=== PATIENT | male | born 1960 | race Caucasian/White ===

== ENCOUNTER → 2018-01-09 09:24 | Outpatient (REF) | payer MEDICARE, SELFPAY ==
[2018-01-09 09:28] LABS: Adenovirus F 40/41, stool Not Detected (NotDetected); Astrovirus Not Detected (NotDetected); Campylobacter Not Detected (NotDetected); Clostridium Difficile A/B, PCR Not Detected (NotDetected); Cryptosporidium Not Detected (NotDetected); Cyclospora Cayetanesis Not Detected (NotDetected); Entamoeba histolytica Not Detected (NotDetected); Enteroaggregative E coli Not Detected (NotDetected); Enteropathogenic E coli Not Detected (NotDetected); Enterotoxigenic E coli Not Detected (NotDetected); Giardia lamblia Not Detected (NotDetected); Norovirus Not Detected (NotDetected); Plesimonas Shigalloides, PCR Not Detected (NotDetected); Rotavirus A Not Detected (NotDetected); Salmonella, PCR Not Detected (NotDetected); Sapovirus Not Detected (NotDetected); Shiga-like toxin E coli Not Detected (NotDetected); Shigella Enterovasive E coli Not Detected (NotDetected); Vibrio Cholerae Not Detected (NotDetected); Vibrio, PCR Not Detected (NotDetected); Yersinia Entercolitica, PCR Not Detected (NotDetected)
== END ==
LOC: LAB 09:24
PROVIDERS: Visit Provider Surgery
DX: R19.7 Diarrhea, unspecified (principal)
CPT/HCPCS: 87507

== ENCOUNTER → 2018-09-04 12:33 | Outpatient (CLI) | payer MEDICARE, SELFPAY ==
--- NOTE | 2018-09-04 12:38 | CT_ITS ---
CT lung screening EXAM: CT LUNG LOW DOSE WO CONTRAST HISTORY: 44 pack-year smoking history asymptomatic for lung cancer ITS.REASON: NICOTINE DEPENDENCE ORDERING PHYSICIAN: ROBINSON Garcia PATIENT AGE: 58 years COMPARISON: 03/06/2017 TECHNIQUE: The exam was performed on a GE Light Speed [address] scanner using 2.90 mGy CTDI. A low dose helical CT CHEST was performed on a multi-detector scanner. All CT scans at the facility use one or more dose reduction, viz: automated exposure control, ma/kV adjustment per patient size (including targeted exams where dose is matched to indication, i.e. head), or iterative reconstruction technique. The LDCT was performed in a facility that meets the criteria for the screening program. Data regarding this exam was submitted to ACR which is an approved registry. The order for this exam indicates that it came as a result of a lung cancer screening counseling shard decision-making visit that included all the elements required of such a visit including smoking cessation. The radiologist interpreting this exam meets the CMS criteria for the LDCT lung cancer screening program. The exam is reported using the Lung-RADS classification scale and reported to the ACR registry. NOTE: This study was performed for the specific purposes of lung cancer screening and is not an alternative to diagnostic chest CT. RADIATION DOSE: CTDI vol(CT dose Index-volume) = 2.90mG DLP (Dose Length Product) = 120.63 mGcm FINDINGS: Paraseptal emphysema with COPD. Stable subpleural nodular density right upper lobe anteriorly at 7 mm. 4 mm noncalcified nodule right lower lobe laterally image #61 series 3 7 mm noncalcified nodule right lower lobe posteriorly image #69 series 3. These areas were somewhat obscured on the previous study due to underlying airspace disease. Calcified granuloma right lower lobe. 5 mm noncalcified nodule right lower lobe posteriorly image #44 series 3. 6 mm nodule left lower lobe image 59 series 3 unchanged. Scattered small mediastinal lymph nodes Coronary artery calcifications IMPRESSION: 1. Lung RADS Category: 3, probably benign. 7 mm noncalcified nodule right lower lobe. It is uncertain whether this nodule was present on the most recent comparison study due to that area being obscured by airspace disease. This was not readily apparent on 01/21/2017 exam. 2. Other findings: Paraseptal emphysema with COPD Coronary artery calcification RECOMMENDATIONS: [address] chest without and with contrast
== END ==
PROVIDERS: PCP Physician Assistant; Visit Provider Physician Assistant
DX: Z12.2 Encounter for screening for malignant neoplasm of respiratory organs (principal); Z87.891 Personal history of nicotine dependence

== ENCOUNTER → 2018-09-23 07:42 | Outpatient (CLI) | payer MEDICARE, SELFPAY ==
--- NOTE | 2018-09-23 07:58 | NM_ITS ---
CARDIOLITE SPECT MYOCARDIAL PERFUSION LEXISCAN, REST AND STRESS: [facility] REVIEW QGS EF AND WALL MOTION EVALUATION: QPS - PERFUSION EVALUATION HISTORY: HTN, SMOKER DOSE: 10.74 mCi technetium 99m mibi intravenously at rest followed by 31.7 mCi technetium 99m mibi following the intravenous ministration of 0.4 mg of Lexiscan. Resting blood pressure is 154/91. Stress blood pressure 147/83. FINDINGS: Ejection fraction is calculated to be 60% Stress images reveal uniform myocardial activity while rest images reveal decreased activity in the inferior septal and apical sharp. Gated images calculated ejection fraction of 60% with normal wall motion. IMPRESSION: Stress images are normal however the abnormal resting images suggest reverse redistribution although my suspicion for this is uncertain and clinical correlation is advised. Normal ejection fraction normal wall motion
--- NOTE | 2018-09-23 09:40 | HMH.ITSHM ---
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 []VENAFAXINE TERAZOSIN METOPROLOL LURASIDONE DIAZEPAM BUPROPION BENZTROPINE ASPIRIN TRIAMTERENE HCTZ GLIMEPIRIDA
== END ==
PROVIDERS: PCP Family Medicine; Visit Provider Physician Assistant
DX: I25.10 Atherosclerotic heart disease of native coronary artery without angina pectoris (principal)
CPT/HCPCS: 78452; 93017; A9502; J2785

== ENCOUNTER 2018-10-06 07:44 | Day surgery (SDC) | payer MEDICARE, SELFPAY ==
[2018-10-06] VITALS (13 sets, daily range): BP systolic 90–145; BP diastolic 58–90; PULSE 60–67; RESP 16–20; TEMP 36.6–37.1; O2SAT 94–96; BMI 32.5
--- NOTE | 2018-10-06 07:30 | IR_ITS ---
CARDIAC CATHETERIZATION DATE OF CATHETERIZATION:10/06/2018 9:56 AM PROCEDURES: 1. Left heart catheterization 2. Left ventriculogram 3. Selective coronary angiogram 4. FFR to the LAD 5. Drug-eluting stent deployment to the proximal LAD INDICATION FOR TEST: 1. Coronary artery disease 2. Ischemic response to adenosine FFR 0.78 in the LAD 3. Abnormal Myoview apical septal ischemia 4. Typical angina pectoris Informed consent was obtained prior to the procedure. COMPLICATIONS: None ESTIMATED BLOOD LOSS: Less than 10 ml. TECHNIQUE: One percent lidocaine used to anesthetize the right anterior aspect of the wrist. The right radial artery was accessed via the Seldinger technique. A 6 Nigerian sheath was placed in the right radial artery. 2.5 mg of verapamil, 800 mcg of nitroglycerin, 1mg Lidocaine and 5000 U Heparin were given through the arterial sheath. The trap catheter was also used to perform left heart catheterization, left ventriculogram and selective coronary angiogram. At the end of the diagnostic procedure 6000 units of heparin was administered intravenously giving a therapeutic ACT. An MoveInSync left guide catheter was placed in the ascending aorta and an FFR wire was normalized. The guide was used intubate the left main artery and the FFR wire was placed distally. Adenosine was infused and the FFR dropped to 0.78. A 3.5 x 18 mm resolute Agar stent was deployed at 20 van reducing the hemodynamically severe stenosis to 0%. After achieving excellent angiographic results and NICKY-3 flow before and after the procedure the apparatus was removed the sheath was removed good hemostasis was achieved using TR banding patient was transferred to the postop holding area in stable condition. ACT 380 seconds ANGIOGRAPHIC RESULTS: 1. The left main artery normal 2. The left anterior descending artery has a proximal 40-70% stenosis which was hemodynamically severe producing an FFR index of 078. The remaining vessel is normal 3. The circumflex artery is a large dominant vessel and has 10-20% mid vessel stenoses. A moderate to large ramus intermedius has an ostial 60% stenosis and a mid vessel 40% stenosis 4. The right coronary artery is a nondominant vessel and normal 5. The LAURENT ventriculogram reveals normal 65% 6. The left ventricular end-diastolic pressure elevated at 35 mmHg IMPRESSION: 1. Hemodynamically severe proximal LAD disease 2. Successful stenting the proximal LAD severe disease reduced to 0% with 1 drug-eluting stent 3. Persistent moderate to severe stenosis in the large ramus intermedius or first obtuse marginal artery 4. Normal ejection fraction 5. Severely elevated LVEDP consistent with diastolic dysfunction PLAN: 1. Brilinta and aspirin 2. Patient requires diuretics to decrease LVEDP. The FFR index would actually be significantly worsened 0.781 for the elevated LVEDP. This should be treated with Loop diuretics 3. Avoidance of tobacco products 4. Cardiac rehabilitation 5. Aggressive risk factor modification
[2018-10-06 08:50] LABS: Basophils # 0.1 K/mm3 (0-0.2); Eosinophils # 0.2 K/mm3 (0.0-0.4); Hematocrit 46.9 % (42.0-52.0); Hemoglobin 15.8 g/dL (14.1-18.0); Lymphocytes # 1.5 K/mm3 (0.7-4.5); Lymphocytes % 22.3 % (10-50); Mean Corpuscular HGB Conc 33.6 g/dL (31.8-35.4); Mean Corpuscular Hemoglobin 30.4 pg (27.0-31.2); Mean Corpuscular Volume 90.4 fl (80-94); Mean Platelet Volume 8.1 fl (7.4-10.4); Monocytes # 0.4 K/mm3 (0.1-1.0); Monocytes % 5.4 % (1.7-9.3); Neutrophils # 4.6 K/mm3 (1.8-7.8); Neutrophils % 68.3 % (37.0-80.0); Platelet Count 264 K/mm3 (142-424); Red Blood Count 5.19 M/mm3 (4.60-6.20); Red Cell Distribution Width 14.5 % (11.5-17.5); White Blood Count 6.8 K/mm3 (4.8-10.8)
[2018-10-06 08:54] LABS: Anion Gap 14.1 mEq/L (5-15); Blood Urea Nitrogen 16 mg/dL (7-18); Calcium 9.7 mg/dL (8.5-10.1); Carbon Dioxide 26 mmol/L (21.0-32.0); Chloride 104 mmol/L (98-107); Creatinine Clearance Estimated 117 mL/min (50-200); Creatinine,Serum 0.99 mg/dL (0.70-1.30); Estimated Glomerular Filt Rate 77 ml/min (>60); GFR (African American) 94 ML/MIN (>60); Glucose 92 mg/dL (74-106); Potassium 4.1 mmoL/L (3.5-5.1); Sodium 140 mmol/L (136-145)
[2018-10-06 12:24] LABS: CATHL Activated Clotting Time 380 SEC (74-125)
--- NOTE | 2018-10-06 13:59 | HMH.PHACLD ---
Jose Richardson has received discharge medication counseling on the following medications: BRILINTA. PATIENT IS TO CONTINUE TAKING ALL OTHER HOME MEDICATIONS. BRILINTA PRESCRIPTION WAS PICKED UP AT CLINIC PHARMACY. PATIENT HAD NO QUESTIONS AT THIS TIME. -ISABELL MEDINA, HORACED
== END 2018-10-06 13:56 | disposition home or self-care (01) ==
LOC: CATHLAB 07:45
PROVIDERS: PCP Family Medicine; Visit Provider Internal Medicine
DX: E11.9 Type 2 diabetes mellitus without complications (principal); E78.5 Hyperlipidemia, unspecified; R00.2 Palpitations; R06.00 Dyspnea, unspecified; R94.30 Abnormal result of cardiovascular function study, unspecified; R94.31 Abnormal electrocardiogram [ECG] [EKG]; I25.118 Atherosclerotic heart disease of native coronary artery with other forms of angina pectoris; Z72.0 Tobacco use; Z79.899 Other long term (current) drug therapy; J44.9 Chronic obstructive pulmonary disease, unspecified; Z88.2 Allergy status to sulfonamides
CPT/HCPCS: 80048; 85025; 85347; 92928; 93458; 93571; 99152; 99153; C1725; C1760; C1769; C1876; C9600; J0153; J1644; Q9967

== ENCOUNTER 2018-10-14 10:42 | Outpatient (RCR) | payer MEDICARE, SELFPAY | END 2019-01-01 13:15 | disposition home or self-care (01) | LOC: PT 10:42 | PROVIDERS: Visit Provider Internal Medicine | DX: Z98.61 Coronary angioplasty status (principal) | CPT/HCPCS: 93798 ==

== ENCOUNTER → 2018-10-15 08:29 | Outpatient (CLI) | payer MEDICARE, SELFPAY ==
--- NOTE | 2018-10-15 08:32 | CA_ITS ---
PROCEDURE: 2-D M-mode and color Doppler study INDICATIONS FOR THE TEST: Chest pain + COPD+ Heart Murmur Tobacco Smoking+ Palpitations Fatigue Syncope Edema Hypertension+Diabetes Mellitus+ Rheumatic Fever SOB TREVINO+Obesity Hyperlipidemia+ Family History HD Additional History cad,stent PATIENT INFORMATION HEIGHT: 66 WEIGHT:224 GENDER: Male B/P:123/77 2-D/M-MODE INTERPRETATION: 2-D MEASUREMENTS OBSERVED VALUES IN CMS Right Ventricular Dimension (RVDd) 2.4 Interventricular Septum (Thickness)(IVsd) 1.0 Left Ventricular Internal Dimensions(LVIDd) 4.3 Left Ventricular Posterior Wall (Thickness)(LVPWd) 1.1 Aortic Root 3.1 Aortic Cusp Separation 1.9 Left Atrial Dimensions (LAD) 3.4 2D 1. Left atrium is mildly enlarged, left ventricle is normal size, mild concentric left ventricular hypertrophy, visually estimated ejection fraction 50%, is moderate hypokinesis involving the inferior basal and posterobasal wall. 2. The right atrium and right ventricle are relatively normal size and function. 3. The aortic valve is thickened and calcified leaflet continue to display mobility. 4. The mitral and tricuspid valvular grossly normal. 5. The pulmonic valve is poorly present. 6. No significant pericardial effusion noted. DOPPLER INTERROGATION: Doppler interrogation of the aortic, mitral and tricuspid valvular presence of mild mitral and tricuspid regurgitation, tricuspid regurgitation jet velocity is inadequate for calculation of the right ventricular systolic pressure, grade 1 diastolic dysfunction seen without tissue Doppler evidence of raised left atrial pressure. CONCLUSION: 1. Mildly enlarged left atrium, normal left ventricular size, mild concentric left ventricular hypertrophy, visually estimated ejection fraction 50% with segmental wall motion abnormality described above, grade 1 diastolic dysfunction seen without tissue Doppler evidence of raised left atrial pressure. 2. Mild mitral and tricuspid regurgitation 3. No significant pericardial effusion noted.
== END ==
PROVIDERS: PCP Family Medicine; Visit Provider Internal Medicine
DX: R00.2 Palpitations (principal)
CPT/HCPCS: 93306

== ENCOUNTER → 2018-11-10 14:58 | Outpatient (CLI) | payer MEDICARE, SELFPAY ==
--- NOTE | 2018-11-10 14:58 | US_ITS ---
US Arterial Ankle Brachial Ind History: Claudication, bilateral leg numbness, smoker ORDERING PHYSICIAN: Elliot Wilder MD PATIENT AGE: 58 years TECHNIQUE: Segmental pressures obtained of both right and left leg. These are compared to brachial blood pressure to yield index at each level sampled including summary IRIS. The data sheets from the procedure are available in PACS FINDINGS Rest study only performed today No prior studies available for comparison. Blood pressures reported are in millimeters mercury. RIGHT LEG IRIS = 1.13. RIGHT LEG TBI= Brachial BP: 137 Thigh BP: 143 Calf BP: 140 Ankle PT: 155 Ankle DP : 140 Digit =112 LEFT LEG IRIS = 1.05 LEFT LEG TBI= Brachial BPD: 133 Thigh BP: 118 Calf BP: 146 Ankle PT:144 Ankle DP: 138 Digit = 106 Pulses and waveforms: Normal IMPRESSION: The ABIs as reported above are within normal limits. Waveforms and pulses are also unremarkable.
== END ==
PROVIDERS: PCP Family Medicine; Visit Provider Internal Medicine
DX: I73.9 Peripheral vascular disease, unspecified (principal)
CPT/HCPCS: 93922

== ENCOUNTER → 2018-12-01 19:56 | Outpatient (CLI) | payer MEDICARE, SELFPAY | PROVIDERS: PCP Family Medicine; Visit Provider Internal Medicine Cardiovascular Disease | DX: G47.33 Obstructive sleep apnea (adult) (pediatric) (principal); I10 Essential (primary) hypertension; R40.0 Somnolence; J44.9 Chronic obstructive pulmonary disease, unspecified; F17.210 Nicotine dependence, cigarettes, uncomplicated | CPT/HCPCS: 95810 ==

== ENCOUNTER → 2019-02-17 14:41 | Outpatient (CLI) | payer MEDICARE, SELFPAY | PROVIDERS: PCP Family Medicine; Visit Provider Urology | DX: I25.10 Atherosclerotic heart disease of native coronary artery without angina pectoris; R55 Syncope and collapse; I11.9 Hypertensive heart disease without heart failure; E78.5 Hyperlipidemia, unspecified; I73.9 Peripheral vascular disease, unspecified; R06.00 Dyspnea, unspecified; F17.200 Nicotine dependence, unspecified, uncomplicated; Z95.5 Presence of coronary angioplasty implant and graft | CPT/HCPCS: 93270 ==

== ENCOUNTER → 2019-02-24 12:58 | Outpatient (CLI) | payer MEDICARE, SELFPAY ==
--- NOTE | 2019-02-24 13:00 | CA_ITS ---
APPROVED REPORT President Financial Institution: SIMON Laterality: Bilateral Study Quality: Good Indications: Near syncope DIZZINESS Doppler Spectral Velocity Analysis ECA (R) 206.00/ cm/s ECA (L) 126.00/ cm/s dICA (R) 109.00/33.00 cm/s dICA (L) 79.50/34.10 cm/s Laci (R) 121.00/49.50 cm/s Laci (L) 66.40/27.10 cm/s pICA (R) 62.10/24.40 cm/s pICA (L) 53.30/15.70 cm/s dCCA (R) 95.10/21.20 cm/s dCCA (L) 93.40/28.80 cm/s pCCA (R) 75.40/15.70 cm/s pCCA (L) 138.00/34.90 cm/s Vert (R) 40.20/ cm/s Vert (L) 33.20/ cm/s ICA/CCA 1.27 ICA/CCA 0.85 Findings Duplex evaluation demonstrates stenosis of the right proximal internal carotid artery in the range of 20-49% with PSV <140 cm/sec, EDV <100 cm/sec, and IC/CC Ratio <4.0.Duplex evaluation demonstrates stenosis of the left proximal internal carotid artery in the range of 20-49% with PSV <140 cm/sec, EDV <100 cm/sec, and IC/CC Ratio <4.0.Antegrade flow seen bilateral vertebral arteries. Conclusion Duplex evaluation demonstrates stenosis of the right proximal internal carotid artery in the range of 20-49% with PSV <140 cm/sec, EDV <100 cm/sec, and IC/CC Ratio <4.0.Duplex evaluation demonstrates stenosis of the left proximal internal carotid artery in the range of 20-49% with PSV <140 cm/sec, EDV <100 cm/sec, and IC/CC Ratio <4.0.Antegrade flow seen bilateral vertebral arteries. Electronically signed by : Gage Patiño MD 02/24/2019 15:50:40
== END ==
PROVIDERS: PCP Family Medicine; Visit Provider Urology
DX: R55 Syncope and collapse; I73.9 Peripheral vascular disease, unspecified; I25.10 Atherosclerotic heart disease of native coronary artery without angina pectoris; E78.5 Hyperlipidemia, unspecified; I11.9 Hypertensive heart disease without heart failure; F17.200 Nicotine dependence, unspecified, uncomplicated; Z95.5 Presence of coronary angioplasty implant and graft
CPT/HCPCS: 93880

== ENCOUNTER → 2019-04-23 09:53 | Outpatient (CLI) | payer MEDICARE, SELFPAY ==
[2019-04-23 11:23] LABS: Alanine Aminotransferase 15 U/L (12-78); Albumin Level 4.1 gm/dL (3.4-5.0); Alkaline Phosphatase 92 U/L (46-116); Aspartate Amino Transferase 12 U/L (15-37); Bilirubin,Direct 0.1 mg/dL (0.0-0.2); Bilirubin,Indirect 0.3 mg/dL (0.0-0.9); Bilirubin,Total 0.4 mg/dL (0.2-1.0); Chol/HDL Ratio 5.1 (1-3.5); Cholesterol 274 mg/dL (140-200); HDL Cholesterol 54 mg/dL (27-67); LDL Cholesterol 195 mg/dL (0-130); Total Protein,Serum 7.3 gm/dL (6.4-8.2); Triglycerides 123 mg/dL (30-200); VLDL Cholesterol 25 mg/dL (0-40)
== END ==
PROVIDERS: Urology; Visit Provider Internal Medicine
DX: E78.5 Hyperlipidemia, unspecified (principal); I11.9 Hypertensive heart disease without heart failure; I73.9 Peripheral vascular disease, unspecified; R55 Syncope and collapse; F17.200 Nicotine dependence, unspecified, uncomplicated; Z95.5 Presence of coronary angioplasty implant and graft
CPT/HCPCS: 36415; 80061; 80076

== ENCOUNTER → 2019-05-03 20:09 | Outpatient (CLI) | payer MEDICARE, SELFPAY | PROVIDERS: PCP Family Medicine; Visit Provider Nurse Practitioner Family | DX: G47.33 Obstructive sleep apnea (adult) (pediatric) (principal); G47.36 Sleep related hypoventilation in conditions classified elsewhere; I10 Essential (primary) hypertension; R40.0 Somnolence; G47.00 Insomnia, unspecified; R06.83 Snoring; I25.10 Atherosclerotic heart disease of native coronary artery without angina pectoris; E66.9 Obesity, unspecified; Z95.5 Presence of coronary angioplasty implant and graft | CPT/HCPCS: 95811 ==

== ENCOUNTER → 2019-06-07 12:52 | Outpatient (CLI) | payer MEDICARE, SELFPAY ==
--- NOTE | 2019-06-07 12:53 | US_ITS ---
APPROVED REPORT Exam Type: Lower Extremity Segmental Pressures House Player: Raysa Ellis RVT Indications Claudication: Bilaterally Rest Pain: Bilaterally Numbness/Tingling Current Smoker CAD Risk Factors Hypertension CAD Hyperlipidemia Cardiac Disease Diabetes Current Smoker Pressures/Indices Right Indices Left Indices Brachial 113.00 mmHg Brachial 107.00 mmHg Low Thigh 110.00 mmHg 0.97 Low Thigh 118.00 mmHg 1.04 Calf 117.00 mmHg 1.04 Calf 112.00 mmHg 0.99 Ankle(PT) 119.00 mmHg 1.05 Ankle(PT) 121.00 mmHg 1.07 Ankle(DP) 108.00 mmHg 0.96 Ankle(DP) 80.00 mmHg 0.71 Digit 99.00 mmHg 0.88 Digit 96.00 mmHg 0.85 Post Exercise Pressures/Indices Treadmill 5.00 minute(s). Max Speed: 1.80 Max Incline: 10.00 Right Left 126.00 mmHg Brachial 105.00 mmHg Ankle (PT) 120.00 mmHg 0.83 IRIS 0.95 Findings RESTING RT IRIS:1.05 LT IRIS:1.07 RT TBI:0.88 LT TBI:0.85 POST EXERCISE RT IRIS:0.83 LT IRIS:0.95 PT STARTED WITH LEG HEAVINESS 1 MINUTE INTO EXAM WHICH CONTINUED THROUGHOUT. NORMAL PULSES BILATERAL NORMAL WAVEFORMS BILATERAL Conclusion RESTING RT IRSI:1.05 LT IRIS:1.07 RT TBI:0.88 LT TBI:0.85 POST EXERCISE RT IRIS:0.83 LT IRIS:0.95 PT STARTED WITH LEG HEAVINESS 1 MINUTE INTO EXAM WHICH CONTINUED THROUGHOUT. NORMAL PULSES BILATERAL NORMAL WAVEFORMS BILATERAL The Rt IRIS dropped below 0.9 following exercise indicating PAD on the right Electronically signed by : Gage Patiño MD 06/25/2019 06:47:02
== END ==
PROVIDERS: PCP Family Medicine; Visit Provider Internal Medicine Cardiovascular Disease
DX: I73.9 Peripheral vascular disease, unspecified (principal)
CPT/HCPCS: 93924

== ENCOUNTER → 2019-06-25 12:20 | Outpatient (CLI) | payer MEDICARE, SELFPAY ==
[2019-06-25 13:43] LABS: Anion Gap 14.6 mEq/L (5-15); Blood Urea Nitrogen 15 mg/dL (7-18); Calcium 9.2 mg/dL (8.5-10.1); Carbon Dioxide 26 mmol/L (21.0-32.0); Chloride 101 mmol/L (98-107); Creatinine,Serum 1.25 mg/dL (0.70-1.30); Estimated Glomerular Filt Rate 59 ml/min (>60); GFR (African American) 71 ML/MIN (>60); Glucose 77 mg/dL (74-106); Potassium 4.6 mmoL/L (3.5-5.1); Sodium 137 mmol/L (136-145)
== END ==
PROVIDERS: Visit Provider Internal Medicine Cardiovascular Disease
DX: E78.2 Mixed hyperlipidemia (principal); I11.9 Hypertensive heart disease without heart failure; I25.118 Atherosclerotic heart disease of native coronary artery with other forms of angina pectoris; J43.9 Emphysema, unspecified; R20.0 Anesthesia of skin; R68.89 Other general symptoms and signs
CPT/HCPCS: 36415; 80048

== ENCOUNTER → 2019-12-21 15:24 | Outpatient (CLI) | payer MEDICARE, SELFPAY ==
[2019-12-21 17:24] LABS: Chloride 103 mmol/L (98-107); Potassium 4.7 mmoL/L (3.5-5.1); Sodium 138 mmol/L (136-145)
[2019-12-21 17:26] LABS: Alanine Aminotransferase 12 U/L (12-78); Anion Gap 13.7 mEq/L (5-15); Aspartate Amino Transferase 21 U/L (17-59); Bilirubin,Unconjugated 0.5 mg/dL (0.0-1.1); Blood Urea Nitrogen 14 mg/dl (9-20); Carbon Dioxide 26 mmol/L (22.0-30.0); Estimated Glomerular Filt Rate 56 ml/min (>60); GFR (African American) 68 ML/MIN (>60)
[2019-12-21 17:27] LABS: Albumin Level 4.9 g/dl (3.5-5.0); Alkaline Phosphatase 67 U/L (38-126); Bilirubin,Direct 0.3 mg/dl (0.0-0.4); Bilirubin,Indirect 0.5 mg/dL (0.0-0.9); Bilirubin,Total 0.8 mg/dl (0.2-1.3); Calcium 10.1 mg/dl (8.4-10.2); Chol/HDL Ratio 5.1 (1-3.5); Cholesterol 269 mg/dl (140-200); Glucose 88 mg/dl (74-100); HDL Cholesterol 53 mg/dl (40-60); Total Protein,Serum 7.5 g/dl (6.3-8.2); Triglycerides 235 mg/dl (30-150); VLDL Cholesterol 47 mg/dL (0-40)
[2019-12-21 17:38] LABS: Direct LDL Cholesterol 183.65 mg/dL (100-129)
== END ==
PROVIDERS: Visit Provider Urology
DX: I11.9 Hypertensive heart disease without heart failure; E78.5 Hyperlipidemia, unspecified; I25.10 Atherosclerotic heart disease of native coronary artery without angina pectoris; I73.9 Peripheral vascular disease, unspecified; F17.200 Nicotine dependence, unspecified, uncomplicated
CPT/HCPCS: 36415; 80048; 80061; 80076

== ENCOUNTER → 2019-12-30 10:30 | Outpatient (CLI) | payer MEDICARE, SELFPAY ==
--- NOTE | 2019-12-30 10:38 | CT_ITS ---
PROCEDURE: CT CHEST WO/W CON CLINCAL INDICATION: dyspnea Smoker, shortness of breath, elevated blood pressure COMPARISON: LUNGSFiz CT lung screening from 09/04/2018 TECHNIQUE: IV Contrast: 75ml Optiray 350 Axial images obtained with sagittal and coronal reformats. All CT scans at the facility use one or more dose reduction, viz: automated exposure control, ma/kV adjustment per patient size (including targeted exams where dose is matched to indication, i.e. head), or iterative reconstruction technique. FINDINGS: HEART AND MEDIASTINAL STRUCTURES: Coronary artery calcifications and/or stents noted. Normal heart size. No mediastinal or hilar mass or adenopathy. LUNGS AND PLEURAL SPACES: Changes of COPD with scattered areas of scarring with paraseptal emphysematous change. There is a stable 6 mm nodule in the right upper lobe anteriorly. A 4 mm noncalcified nodules present in the right lung base medially which is stable. No new nodules are evident. No effusions or infiltrates BONY STRUCTURES: No acute bony abnormalities apparent. UPPER ABDOMEN: Unremarkable. ADDITIONAL FINDINGS: No other significant abnormalities. IMPRESSION: Stable CT appearance of the chest with COPD and paraseptal emphysematous change. Stable pulmonary nodules. No acute finding Dictated by: Gage Patiño MD 12/31/2019 11:21 Electronically signed by aGge Patiño MD in [place] 12/31/2019 11:21
== END ==
PROVIDERS: PCP Family Medicine; Visit Provider Urology
DX: E78.5 Hyperlipidemia, unspecified (principal); F17.200 Nicotine dependence, unspecified, uncomplicated; I11.9 Hypertensive heart disease without heart failure; I25.10 Atherosclerotic heart disease of native coronary artery without angina pectoris; I73.9 Peripheral vascular disease, unspecified; R06.00 Dyspnea, unspecified
CPT/HCPCS: 71270; Q9967

== ENCOUNTER 2020-01-29 11:12 | Emergency (ER) | payer MEDICARE, SELFPAY ==
[2020-01-29 11:26] VITALS: BP 128/83; PULSE 78; RESP 18; TEMP 37.1; O2SAT 96; BMI 32.4
--- NOTE | 2020-01-29 11:51 | HMH.EDGENADL ---
ED Disposition Clinical Impression: Rash Disposition: Home, Self-Care Condition on Discharge: Good Additional Instructions: If you have any new, changing, worsening, or concerning symptoms, come back to the emergency department. Prescriptions: predniSONE [Prednisone 5mg Tab Dose-Pack] 5 mg PO UD DOSE PK 5 Days #1 pack Transmission Status: Pending to [facility] Referrals: Katherine Sheldon MD [Primary Care Provider] - - Critical Care Critical Care Time: No Attestation: On 01/29/20, the high probability of a clinically significant, sudden or life threatening deterioration of the following system(s) required my full and direct attention, intervention and personal management. The time I documented below is in addition to time spent performing reported procedures but includes the following listed in this critical care notation. Medical Decision Making - Medical Records Medical records reviewed: Yes: I reviewed the patient's medical records. MR Comment: 59-year-old male with hypertension presents emergency department with a rash on his bilateral lower extremities. He arrives to the ED hemodynamically stable, with reassuring vital signs, and looks well on exam. He has not had recent fever, is nontoxic, the rash is nontender and does not resemble petechiae purpura. Doubt tickborne illness. He overall looks well denies history of diabetes. Will do a steroid Dosepak given the amount of the rash on his lower extremities and asked that he follow-up with his PCP in the next couple of days. Also advised to keep an eye on his blood glucose. He was given strict return precautions and discharge instructions and verbalized understanding and agreement to the plan. Safe to discharge. - Ru Inquiry Pt receiving controlled substance: No Vital Signs: 01/29/20 11:26 Temperature 98.8 F Temperature Source Oral Pulse Rate [Left Brachial] 78 Respiratory Rate 18 Blood Pressure [Left Arm] 128/83 Blood Pressure Mean [Left Arm] 98 Blood Pressure Source [Left Arm] Automatic Cuff Blood Pressure Position [Left Arm] Sitting 02 Sat by Pulse Oximetry 96 Oxygen Delivery Method Room Air General Adult HPI - General Chief complaint: Skin/Abscess/Foreign Body Stated complaint: RASH Time Seen by Provider: 01/29/20 11:51 Mode of Arrival: Ambulatory Limitations: No Limitations Description of Symptoms (Recalled from ER Triage Doc. by RN): red pin point rash to inside or bilateral legs and thighs, abdomen and left upper arm. pt denies pain, burning or itching. no changes in medication, laundry detergents or foods. - History of Present Illness HPI narrative: 59-year-old male presents emergency department with a rash on his bilateral lower extremities that started today. He denies any fever or chills. He denies feeling ill. He has been taking p.o. without any changes. Recent outdoor camping or activities. No recent changes in his detergents, etc. No known allergies. red pin point rash to inside or bilateral legs and thighs. Denies any other symptoms or concerns at this time. - Related Data Home Medications Medication Instructions Recorded Confirmed aspirin 81 mg tablet,delayed 81 mg PO ONCE 01/07/18 07/19/19 release benztropine 1 mg tablet 1 mg PO BID 01/07/18 07/19/19 diazepam 10 mg tablet 10 mg PO QHS PRN 01/07/18 07/19/19 gemfibrozil 600 mg tablet 600 mg PO BID 01/07/18 07/19/19 metoprolol tartrate 25 mg tablet 25 mg PO BID 01/07/18 07/19/19 venlafaxine 75 mg capsule,extended 75 mg PO QHS 01/07/18 07/19/19 release 24 hr Cyanocobalamin/Folic Acid [Vitamin 1 each PO DAILY 02/04/18 07/19/19 D70-Jhiax Acid Tablet] Ubidecarenone [Co Q-10] 200 mg PO DAILY 02/04/18 07/19/19 lurasidone 20 mg tablet 20 mg PO DAILY 02/17/18 07/19/19 bupropion HCl 100 mg tablet 100 mg PO DAILY tab 09/30/18 07/19/19 omeprazole 40 mg capsule,delayed 40 mg PO DAILY 09/30/18 07/19/19 release albuterol sulfate 90 mcg/actuation 1 puff INHA
[2020-01-29 12:24] VITALS: BP 126/80; PULSE 71; RESP 16; TEMP 36.8; O2SAT 98
== END 2020-01-29 12:26 | disposition home or self-care (01) ==
PROVIDERS: Emergency Provider Emergency Medicine; PCP Family Medicine
DX: R21 Rash and other nonspecific skin eruption (principal); I25.10 Atherosclerotic heart disease of native coronary artery without angina pectoris; I10 Essential (primary) hypertension; E78.5 Hyperlipidemia, unspecified; J44.9 Chronic obstructive pulmonary disease, unspecified; Z95.5 Presence of coronary angioplasty implant and graft; F17.200 Nicotine dependence, unspecified, uncomplicated; Z79.899 Other long term (current) drug therapy; Z88.2 Allergy status to sulfonamides; Z88.5 Allergy status to narcotic agent
CPT/HCPCS: 99281

== ENCOUNTER → 2020-05-26 10:18 | Outpatient (CLI) | payer MEDICARE, SELFPAY ==
[2020-05-26 11:35] LABS: Alanine Aminotransferase 14 U/L (12-78); Alkaline Phosphatase 84 U/L (38-126); Aspartate Amino Transferase 23 U/L (17-59); Bilirubin,Direct 0.2 mg/dl (0.0-0.4); Bilirubin,Indirect 0.5 mg/dL (0.0-0.9); Bilirubin,Total 0.7 mg/dl (0.2-1.3); Bilirubin,Unconjugated 0.5 mg/dL (0.0-1.1); Cholesterol 167 mg/dl (140-200); Total Protein,Serum 7.7 g/dl (6.3-8.2); Triglycerides 145 mg/dl (30-150); VLDL Cholesterol 29 mg/dL (0-40)
[2020-05-26 11:36] LABS: Chol/HDL Ratio 2.9 (1-3.5); HDL Cholesterol 58 mg/dl (40-60)
[2020-05-26 11:46] LABS: Direct LDL Cholesterol 77.52 mg/dL (100-129)
== END ==
PROVIDERS: Visit Provider Urology
DX: E78.5 Hyperlipidemia, unspecified (principal)
CPT/HCPCS: 36415; 80061; 80076

== ENCOUNTER → 2020-07-07 13:08 | Outpatient (CLI) | payer MEDICARE, SELFPAY ==
--- NOTE | 2020-07-07 13:09 | CA_ITS ---
APPROVED REPORT Liturgical Music Director: CT Laterality: Bilateral Indications: ayden Risk Factors Hypertension: Hyperlipidemia Smoking Doppler Spectral Velocity Analysis ECA (R) 200.00/ cm/s ECA (L) 78.00/ cm/s dICA (R) 164.10/57.20 cm/s dICA (L) 57.70/29.10 cm/s Laci (R) 169.50/65.80 cm/s Laci (L) 45.80/18.10 cm/s pICA (R) 184.60/68.00 cm/s pICA (L) 52.70/23.30 cm/s dCCA (R) 101.00/18.70 cm/s dCCA (L) 84.50/24.10 cm/s pCCA (R) 113.00/21.00 cm/s pCCA (L) 82.90/23.50 cm/s Vert (R) 24.60/ cm/s Vert (L) 31.70/ cm/s ICA/CCA 1.80 ICA/CCA 0.70 Findings Duplex evaluation demonstrates stenosis of the right proximal internal carotid artery in the range of 50-69%. Duplex evaluation demonstrates stenosis of the left proximal internal carotid artery in the range of 20-49% Duplex evaluation demonstrates antegrade flow of the bilateral Vertebral Arteries. Conclusion Duplex evaluation demonstrates stenosis of the right proximal internal carotid artery in the range of 50-69%. Duplex evaluation demonstrates stenosis of the left proximal internal carotid artery in the range of 20-49% Duplex evaluation demonstrates antegrade flow of the bilateral Vertebral Arteries. Electronically signed by : Gage Patiño MD 07/07/2020 16:46:31
== END ==
PROVIDERS: PCP Family Medicine; Visit Provider Urology
DX: E11.69 Type 2 diabetes mellitus with other specified complication (principal); E66.9 Obesity, unspecified; E78.5 Hyperlipidemia, unspecified; F17.200 Nicotine dependence, unspecified, uncomplicated; I11.9 Hypertensive heart disease without heart failure; I25.10 Atherosclerotic heart disease of native coronary artery without angina pectoris; I73.9 Peripheral vascular disease, unspecified; J44.9 Chronic obstructive pulmonary disease, unspecified; R06.00 Dyspnea, unspecified; R20.0 Anesthesia of skin; R94.30 Abnormal result of cardiovascular function study, unspecified; Z95.5 Presence of coronary angioplasty implant and graft; Z79.84 Long term (current) use of oral hypoglycemic drugs; Z68.30 Body mass index [BMI] 30.0-30.9, adult
CPT/HCPCS: 93880

== ENCOUNTER → 2020-07-11 08:46 | Outpatient (CLI) | payer MEDICARE, SELFPAY ==
--- NOTE | 2020-07-11 08:54 | XR_ITS ---
PROCEDURE: XR RIBS LT 2V CLINICAL INDICATION: CONTUSION OF LT CHEST Posttraumatic pain COMPARISON: No exams were available for comparison FINDINGS: There is a nondisplaced fracture involving the left 7th and 8th ribs anteriorly at the costochondral junction. No other significant anomalies are evident. IMPRESSION: Nondisplaced fractures left 7th and 8th ribs at the costochondral junction Dictated by: Gage Patiño MD 07/11/2020 14:10 Gage Patiño MD in [place] 07/11/2020 14:10
--- NOTE | 2020-07-11 08:56 | XR_ITS ---
PROCEDURE: XR CHEST 2V CLINICAL HISTORY: CONTUSION OF LT CHEST COMPARISON: CR CXR CHEST(2 VIEWS-NOT PORTABLE) from 03/06/2017 CR CXR CHEST(2 VIEWS-NOT PORTABLE) from 03/08/2017 CR CXR1 CHEST-PORTABLE from 05/30/[address] CHEST WO/W CON from 12/30/2019 FINDINGS: The cardiomediastinal silhouette and pulmonary vascularity are within normal limits. There is minimal blunting of the left CP angle suggesting small effusion. No evidence of pneumothorax. The remaining lungs are clear. Rib detail show nondisplaced fracture of the left costochondral junction of 7th and 8th rib No acute bony abnormalities. IMPRESSION: Small left pleural effusion. Nondisplaced fracture left 7th and 8th rib Dictated by: Gage Patiño MD 07/11/2020 14:11 Gage Patiño MD in [place] 07/11/2020 14:11
== END ==
PROVIDERS: PCP Family Medicine; Visit Provider Family Medicine
DX: S20.212A Contusion of left front wall of thorax, initial encounter (principal)
CPT/HCPCS: 71046; 71100

== ENCOUNTER → 2020-07-17 10:37 | Outpatient (CLI) | payer MEDICARE, SELFPAY ==
--- NOTE | 2020-07-17 10:42 | XR_ITS ---
PROCEDURE: XR HAND RT MIN 3V CLINICAL INDICATION: RT HAND PAIN COMPARISON: No exams were available for comparison FINDINGS: A nondisplaced fracture involves the distal aspect of the 5th metacarpal. Scattered mild osteoarthritic changes are present. IMPRESSION: Boxer's fracture nondisplaced 5th metacarpal Dictated by: Gage Patiño MD 07/17/2020 11:04 Gage Patiño MD in [place] 07/17/2020 11:04
== END ==
PROVIDERS: PCP Nurse Practitioner Family; Visit Provider Nurse Practitioner Family
DX: M79.641 Pain in right hand (principal)
CPT/HCPCS: 73130

== ENCOUNTER 2020-10-25 13:00 | Outpatient (RCR) | payer MEDICARE, SELFPAY ==
--- NOTE | 2020-10-04 11:57 | HMH.OTOPEV ---
OT Inpatient Evaluation Rehab OT Outpatient Eval Start: 10/04/20 11:48 Freq: Status: Active Protocol: Document 10/04/20 11:49 YENNI (Rec: 10/04/20 11:56 YENNI [id number]) Electronically Signed By Amita Ferguson OT 10/04/20 11:49 Outpatient Therapy Subjective History Subjective History 60 year old female referred to skilled OP OT services for boxer fx of 5th nondisplaced metacarpal-non surgery. X-rays taken on 07/17/20. Unknown for f/u with PCP. 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 Strength Symptoms Relieved By Nothing Symptoms Aggravated By Physical Activity Prior Functional Limitations None Current Functional Limitations Reaching,Lifting,Recreation Activity Symptom Description Constant and Continuous Level of pain today (0-10) 0 Pain scale - at its best (0-10) 0 Pain scale - at its worst (0-10) 10 Wrist/Hand Eval Finger Range of Motion Right Little Finger Finger Metacarpophalangeal Flexion 80 Active Range of Motion (degrees) Finger Metacarpophalangeal Extension 0 Active Range of Motion (degrees) Finger Proximal Interphalangeal Flexion 90 Active Range (degrees) Finger Distal Interphalangeal Flexion 40 Active Range of Motion (degrees) Horse Stud Manager/Pinch Strength Right Horse Stud Manager Strength Measurement (lbs) 30 Left Horse Stud Manager Strength Measurement (lbs) 70 OT Outpatient Assessment Impairments Problems/Impairments Impaired Range of Motion, Impaired Strength,Subjective C /O Pain Prognosis Rehab Potential Good Clinical Impression Consistent with Diagnosis Yes Short Term Goals Number of Weeks 2 Increase Range of Motion Yes: L little digit MP flex: 85; PIP flex: 100; DIP flex: 50 Increase Strength Yes: L business strategy manager strength: 40# Decrease Subjective C/O Pain Yes: 8/10 at worst Patient to be Ind w/ HEP Yes: AAROM Patient to be Ind w/ Advanced HEP Yes: Strengthening Plant Protection Supervisor Goals Number of Weeks 4 Increase Range of Motion Yes: L little digit MP flex: 90; PIP flex: 110; DIP flex: 60 Increase Strength Yes: L business strategy manager strength: 50# Decrease Subjective C/O Pain Yes: 5/10 at worst Patient to be Ind w/ HEP Yes: AROM Patient to be Ind w/ Advanced HEP Yes: Advance strengthening Outpatient Therapy Plan of Care Treatment Plan May Include Therapeutic Exercise Including Home Yes Exercise Program Manual Th
== END 2020-10-25 13:05 | disposition home or self-care (01) ==
LOC: OT 13:00
PROVIDERS: PCP Nurse Practitioner Family; Visit Provider Family Medicine
DX: S62.339D Displaced fracture of neck of unspecified metacarpal bone, subsequent encounter for fracture with routine healing (principal)
CPT/HCPCS: 97014; 97035; 97110; 97140; 97165; G0283

== ENCOUNTER → 2020-12-25 16:15 | Outpatient (CLI) | payer MEDICARE, SELFPAY ==
--- NOTE | 2020-12-25 16:20 | XR_ITS ---
PROCEDURE: XR CERVICAL SPINE 5V CLINICAL INDICATION: NECK PAIN COMPARISON: No exams were available for comparison FINDINGS: Normal alignment. Degenerative disc disease is present at C5-C6 and C6-C7. Mild foraminal narrowing noted on the right and left at C5-C6 and on the left at C4-C5 and C7-T1 from uncovertebral hypertrophy. Carotid artery calcifications are noted. No acute fracture or dislocation. IMPRESSION: Cervical spondylosis as described above. Dictated by: Gage Patiño MD 12/25/2020 16:58 Gage Patiño MD in [place] 12/25/2020 16:58
--- NOTE | 2020-12-25 16:20 | XR_ITS ---
PROCEDURE: XR KNEE RT 3V CLINICAL INDICATION: PAIN IN RT KNEE COMPARISON: No exams were available for comparison FINDINGS: No fracture or dislocation. No lytic or blastic change. There is normal mineralization. There are minimal osteoarthritic changes at the patellofemoral joint. Vascular calcification noted. Other findings:None. IMPRESSION: Minimal osteoarthritic change patellofemoral joint Dictated by: Gage Patiño MD 12/25/2020 16:59 Gage Patiño MD in [place] 12/25/2020 16:59
== END ==
PROVIDERS: PCP Family Medicine; Visit Provider Family Medicine
DX: M54.2 Cervicalgia (principal); M25.561 Pain in right knee
CPT/HCPCS: 72050; 73562

== ENCOUNTER → 2021-01-03 13:30 | Outpatient (CLI) | payer MEDICARE, SELFPAY ==
[2021-01-03 14:41] LABS: Alanine Aminotransferase 16 U/L (12-78); Aspartate Amino Transferase 22 U/L (17-59); Bilirubin,Unconjugated 0.1 mg/dL (0.0-1.1)
[2021-01-03 14:42] LABS: Albumin Level 4.4 g/dl (3.5-5.0); Alkaline Phosphatase 80 U/L (38-126); Bilirubin,Direct 0.6 mg/dl (0.0-0.4); Bilirubin,Indirect 0.1 mg/dL (0.0-0.9); Bilirubin,Total 0.7 mg/dl (0.2-1.3); Cholesterol 207 mg/dl (140-200); HDL Cholesterol 70 mg/dl (40-60); Total Protein,Serum 6.8 g/dl (6.3-8.2); Triglycerides 211 mg/dl (30-150); VLDL Cholesterol 42 mg/dL (0-40)
[2021-01-03 14:53] LABS: Direct LDL Cholesterol 103.64 mg/dL (100-129)
== END ==
PROVIDERS: Visit Provider Urology
DX: E78.2 Mixed hyperlipidemia (principal); F17.200 Nicotine dependence, unspecified, uncomplicated; I11.9 Hypertensive heart disease without heart failure; I25.10 Atherosclerotic heart disease of native coronary artery without angina pectoris; I73.9 Peripheral vascular disease, unspecified
CPT/HCPCS: 36415; 80061; 80076

== ENCOUNTER → 2021-01-05 10:51 | Outpatient (CLI) | payer MEDICARE, SELFPAY ==
--- NOTE | 2021-01-05 10:53 | CA_ITS ---
APPROVED REPORT Community Advocate: Raysa Ellis RVT Laterality: Bilateral Study Quality: Good Indications: ayden Risk Factors Hypertension: Hyperlipidemia Smoking Doppler Spectral Velocity Analysis ECA (R) 138.70/30.80 cm/s ECA (L) 86.00/22.30 cm/s dICA (R) 186.80/55.90 cm/s dICA (L) 65.80/26.50 cm/s Laci (R) 304.40/132.90 cm/s Laci (L) 53.10/24.40 cm/s pICA (R) 341.00/148.30 cm/s pICA (L) 53.10/14.90 cm/s dCCA (R) 72.70/18.20 cm/s dCCA (L) 89.10/26.50 cm/s pCCA (R) 111.20/24.60 cm/s pCCA (L) 100.30/27.90 cm/s Vert (R) 28.30/10.30 cm/s Vert (L) 34.50/8.80 cm/s ICA/CCA 4.69 ICA/CCA 0.74 Findings Study suggests 70-99% stenosis of the right internal cartoid artery worsened from the 07/07/20 study. Study suggests 20-49% stenosis of the left internal cartoid artery unchanged from the 07/07/20 study. Antegrade flow seen bilateral vertebral arteries. Conclusion Study suggests 70-99% stenosis of the right internal cartoid artery worsened from the 07/07/20 study. Study suggests 20-49% stenosis of the left internal cartoid artery unchanged from the 07/07/20 study. Antegrade flow seen bilateral vertebral arteries. Critical Notification Critical Value: Yes Physician Notified Date: 01/05/2021 Time: 11:34 Physician Name: [facility] office Electronically signed by : Gage Patiño MD 01/05/2021 16:24:01
== END ==
PROVIDERS: PCP Family Medicine; Visit Provider Urology
DX: E78.5 Hyperlipidemia, unspecified (principal); F17.200 Nicotine dependence, unspecified, uncomplicated; I11.9 Hypertensive heart disease without heart failure; I25.10 Atherosclerotic heart disease of native coronary artery without angina pectoris; I73.9 Peripheral vascular disease, unspecified; R06.00 Dyspnea, unspecified; R20.0 Anesthesia of skin; I65.23 Occlusion and stenosis of bilateral carotid arteries
CPT/HCPCS: 93880

== ENCOUNTER → 2021-01-29 08:59 | Outpatient (CLI) | payer MEDICARE, SELFPAY | PROVIDERS: PCP Family Medicine; Visit Provider Family Medicine | DX: Z20.822 Contact with and (suspected) exposure to COVID-19 (principal) | CPT/HCPCS: U0003 ==

== ENCOUNTER 2021-02-09 09:59 | Outpatient (RCR) | payer MEDICARE, SELFPAY ==
--- NOTE | 2021-02-09 10:53 | HMH.PTOPEV ---
PT Outpatient Evaluation Rehab PT Outpatient Evaluation Start: 02/09/21 10:39 Freq: Status: Active Protocol: Document 02/09/21 10:39 KIM (Rec: 02/09/21 10:52 KIM [id number]) Electronically Signed By Srinivas Houston, PT 02/09/21 10:39 Outpatient Therapy Subjective History Subjective History Patient is a 60 year old male presenting to outpatient PT with reports of acute cervical spine pain starting approximately 1.5 months ago of insidious onset. No recent imaging to report. No radicular symptoms per patient report. Patient has most recently received an injection and steroid pack that has provided some relief. Comorbidities in hx of PTSD and HTN. Chief Complaint Pain,Spasms,Stiff,Weakness Symptom Type Shooting Symptoms Relieved By Prescription Meds Symptoms Aggravated By Physical Activity,Walking, Lifting Prior Functional Limitations None Current Functional Limitations Reaching,Lifting,Housework, Driving,Sleeping,Recreation Activity Symptom Description Constant but Variable Level of pain today (0-10) 9 Pain scale - at its best (0-10) 9 Pain scale - at its worst (0-10) 9 Cervical Eval Palpation Cervical Muscles R Cervical Paraspinal,L Cervical Paraspinal,R Suboccipital,L Suboccipital,R SCM,L SCM,R CT Junction,L CT Junction,R Upper Trapezius,L Upper Trapezius,R Thoracic Paraspinals,L Thoracic Paraspinals Cervical/Thoracic Palpation Findings Tenderness Posture Head/C-Spine Posture Sitting Position C-Spine Flattened Head/C-Spine Posture Standing Position C-Spine Flattened Flexibility Deficits Upper Trapezius Muscle Length (R) Moderate Tightness,(L) Moderate Tightness Levaetor Scapulae Muscle Length (R) Moderate Tightness,(L) Moderate Tightness Scalene Group Muscle Length (R) Moderate Tightness,(L) Moderate Tightness Sternocleidomastoid Muscle Length (R) Moderate Tightness,(L) Moderate Tightness Pectoralis Minor Muscle Length (R) Moderate Tightness,(L) Moderate Tightness Passive Joint M
== END 2021-02-09 10:00 | disposition home or self-care (01) ==
LOC: PT 09:59
PROVIDERS: PCP Family Medicine; Visit Provider Family Medicine
DX: M60.9 Myositis, unspecified (principal); M54.2 Cervicalgia
CPT/HCPCS: 97163

== ENCOUNTER → 2021-03-14 09:02 | Outpatient (CLI) | payer MEDICARE, SELFPAY ==
[2021-03-14 10:57] LABS: Blood Urea Nitrogen 19 mg/dl (9-20); Estimated Glomerular Filt Rate 62 ml/min (>60); GFR (African American) 74 ML/MIN (>60)
== END ==
PROVIDERS: Visit Provider Family Medicine
DX: I65.23 Occlusion and stenosis of bilateral carotid arteries (principal)
CPT/HCPCS: 36415; 82565; 84520

== ENCOUNTER → 2021-03-30 09:16 | Outpatient (CLI) | payer MEDICARE, SELFPAY ==
--- NOTE | 2021-03-30 09:46 | MR_ITS ---
PROCEDURE INFORMATION: Exam: MR Cervical Spine Without and With Contrast Exam date and time: 03/30/2021 9:46 AM Age: 60 years old Clinical indication: Neck pain; Additional info: Ddd, cervical. Stiff neck x3-4months. Unable to turn head. Headache. No injury or trauma. 18ml prohance given. Bun: 15 cre: 0.8 gfr: 98. TECHNIQUE: Imaging protocol: Multiplanar magnetic resonance images of the cervical spine without and with contrast. Contrast material: PROHANCE; Contrast volume: 18 ml; Contrast route: IV; COMPARISON: CR XR CERVICAL SPINE 5V 12/25/2020 4:21 PM FINDINGS: Limitations: Motion limited exam. Vertebrae: There is bone marrow edema in the odontoid extending into the C2 vertebral body. Mild marrow edema in the C1 lateral masses. Mild pannus formation at C1-C2 with mild enhancement in the pannus and marrow. No destructive changes are seen. Otherwise normal bone marrow signal. Normal craniocervical junction alignment and vertebral alignment. Multilevel facet and uncovertebral joint osteoarthritis. No abscess or signs of infection. Spinal cord: Normal signal. No cord compression. No syrinx, mass, or abnormal contrast enhancement. C2-C3: No disc herniation or spinal stenosis. Mild right foraminal stenosis. C3-C4: No disc herniation or spinal stenosis. Moderate to severe foraminal stenosis, worse on the left. C4-C5: Disc degeneration with small posterior disc bulge. Mild central spinal stenosis without cord compression. Moderate to severe foraminal stenosis, worse on the right. C5-C6: Disc degeneration with disc space narrowing and broad based posterior disc bulge. Borderline spinal stenosis. No cord compression. Severe bilateral foraminal stenosis. C6-C7: Disc degeneration with disc space narrowing and broad based posterior disc bulge. Borderline spinal stenosis without cord compression. Severe foraminal stenosis. C7-T1: Disc degeneration with disc space narrowing and broad based posterior disc bulge. No significant foraminal stenosis. Soft tissues: Unremarkable. Vertebral arteries: Expected flow voids in the vertebral arteries. IMPRESSION: 1. Marrow edema with mild enhancing pannus at C1-C2 suggesting an inflammatory or degenerative arthritis. No destructive changes or mass. 2. Advanced degenerative spondylosis as above with multilevel moderate to severe neural foraminal stenoses. Mild to borderline spinal stenosis without cord compression.
[2021-03-30 09:57] LABS: Blood Urea Nitrogen 15 mg/dl (9-20); Estimated Glomerular Filt Rate 98 ml/min (>60); GFR (African American) 119 ML/MIN (>60)
== END ==
PROVIDERS: PCP Family Medicine; Visit Provider Family Medicine
DX: M50.30 Other cervical disc degeneration, unspecified cervical region (principal)
CPT/HCPCS: 36415; 72156; 76376; 82565; 84520; A9576

== ENCOUNTER → 2021-04-09 13:54 | Outpatient (POV) | payer MEDICARE, SELFPAY ==
--- NOTE | 2021-04-09 13:56 | HMH.PMCON ---
Assessment and Plan (1) Degenerative disc disease, cervical Status: Acute Category: Medical Code(s): M50.30 - Other cervical disc degeneration, unspecified cervical region (2) Cervical radiculopathy Status: Acute Category: Medical Code(s): M54.12 - Radiculopathy, cervical region - Assessment and plan all Dx Assessment and Plan for all problems:: Patient is a 60-year-old male who presents for consultation for neck pain that is worsening with movement of head. He has had 3 months of pain. Patient reports that he did wake 1 AM with stiffness which progressively worsened causing him to have daily headaches along with 2 episodes of nausea and vomiting. He has tried physical therapy along with home stretching and ice and heat therapies. He does give him some relief. He is no longer taking anti-inflammatories due to Plavix use. Patient does have an MRI that does report the patient to have degenerative arthritis, advanced degenerative spondylosis with multilevel moderate to severe neuroforaminal stenosis. We will seek approval for the patient to hold his Plavix and will proceed with medial branch block/facet joint injection at C5-C6 C6-C7 area. He will continue with home stretching and heat therapy. We will see him back after his injection for reevaluation symptoms. Patient is prediabetic and does manage his blood glucose levels with diet Possible side effects of corticosteroids have been discussed with the patient. Risks and benefits of the procedure have been explained to the patient. Patient would like to proceed with the procedure. Patient has been instructed to contact the clinic with any concerns before the next appointment. Dr. Peres has reviewed this note and agrees with this plan of care. This note was dictated using voice recognition software and make contain errors or omissions. HPI - Data of Consult Patient: new to practice (new) Consult date: 04/09/21 Requesting Physician: Jamee Alicia APRN Primary Care Provider: Katherine Sheldon MD - Consult Narrative Reason for consult: Neck pain History of present illness: Mr. Richardson is a 60 year old male who presents today for complaints of neck pain. Patiet say he began to develop neck pain approximately 3 months ago. He says that he woke up 1 day and felt stiffness in his neck. Over the course of a few months the pain began to worsen and is now significant going from the base of his neck up higher into the neck area. He reports the pain goes behind both ears and is worse with movement of his neck. He says when turning his head from side to side or up and down he has significant pain. He does rate his pain a 5 or 6 out of 10. He does have a MRI of his cervical spine. Patient has tried physical therapy for greater than 6 weeks which gave him no relief. He has tried ice and heat therapies. he does report that heat therapy gives him some relief. He does have daily headaches as well as 2 episodes of nausea and vomiting. Patient is on Plavix therapy prescribed by Dr. Sheldon. He has not had any injective therapy. He denies any paresthesia into upper extremities. CC: Jamee Alicia APRN [facility] History I have reviewed the patient's past medical history: Yes Medical History: Reports:: Anxiety, Chronic Obstructive Pulmonary Disease (COPD), Coronary Artery Disease, Diabetes Mellitus Type 2, Hyperlipidemia, Hypertension, Lung Disease, Palpitations, Peripheral Artery Disease Denies:: Diabetes Mellitus Type 1, Internal Pacemaker, Seizures *Have you ever received a pneumonia vaccine?: No *Have you received a flu vaccine this season?: Yes Other Medical History: Reports: Other Other Surgeries: Yes: Cardiac Catheterization, Cardiac Surgery, Colonoscopy, Coronary Stent, Hernia Repair, Sinus Surgery, Other. No: Pacemaker - *Social History Smoking Status: Current every day smoker Tobacco Type: cigarettes # Packs/Day (cigarettes): 1 #Yrs smoked (if former smoker): 4
[2021-04-09 14:23] VITALS: BP 113/63; PULSE 73; RESP 20; TEMP 36.8; O2SAT 97; BMI 30.8
== END ==
PROVIDERS: PCP Family Medicine; Visit Provider Clinical Nurse Specialist Family Health
DX: M50.10 Cervical disc disorder with radiculopathy, unspecified cervical region (principal)
CPT/HCPCS: 99202; G0463

== ENCOUNTER 2021-04-25 22:07 | Emergency (ER) | payer MEDICARE, SELFPAY ==
[2021-04-25 22:01] VITALS: BP 92/53; PULSE 64; RESP 16; TEMP 36.6; O2SAT 97; BMI 17.9
--- NOTE | 2021-04-25 22:06 | XR_ITS ---
PROCEDURE INFORMATION: Exam: XR Chest Exam date and time: 04/25/2021 10:06 PM Age: 60 years old Clinical indication: Other: Syncopal episode tonight; Additional info: Synope TECHNIQUE: Imaging protocol: XR of the chest. Views: 1 view. COMPARISON: CR XR CHEST 2V 07/11/2020 9:06 AM FINDINGS: Lungs: Pulmonary emphysema is suspect. There is a focal area of increased density present within the right infrahilar region which could represent either atelectasis or focal infiltrate. There is no evidence of pulmonary vascular congestion. Pleural spaces: Unremarkable. No pleural effusion. No pneumothorax. Heart/Mediastinum: Unremarkable. No cardiomegaly. Bones/joints: Unremarkable. IMPRESSION: 1. Limited inspiration. Pulmonary emphysema is suspect. 2. Atelectasis versus focal infiltrate right infrahilar region. Progress examination is suggested.
--- NOTE | 2021-04-25 22:12 | ECG_ITS ---
APPROVED REPORT Exam: Resting ECG HR:63 bpm ECG Measurements Heart Rate 63 AXES DE 184 P 67 QRSd 108 QRS 85 QT 428 T 69 QTc 437 Conclusion Normal sinus rhythm Normal ECG Electronically signed by : Rashid Vera MD 04/27/2021 22:39:55
[2021-04-25 22:19] LABS: Basophils # 0.1 K/mm3 (0-0.2); Basophils % 0.8 % (0.1-2.0); Eosinophils # 0.2 K/mm3 (0.0-0.4); Eosinophils % 3.3 % (0.1-12.0); Hematocrit 44.4 % (42.0-52.0); Hemoglobin 14.5 g/dL (14.1-18.0); Lymphocytes # 2.2 K/mm3 (0.7-4.5); Lymphocytes % 32.9 % (10-50); Mean Corpuscular HGB Conc 32.7 g/dL (31.8-35.4); Mean Corpuscular Hemoglobin 30.8 pg (27.0-31.2); Mean Platelet Volume 7.4 fl (7.4-10.4); Monocytes # 0.3 K/mm3 (0.1-1.0); Monocytes % 4.6 % (1.7-9.3); Neutrophils # 3.9 K/mm3 (1.8-7.8); Neutrophils % 58.3 % (37.0-80.0); Platelet Count 300 K/mm3 (142-424); Red Blood Count 4.72 M/mm3 (4.60-6.20); Red Cell Distribution Width 13.5 % (11.5-17.5); White Blood Count 6.6 K/mm3 (4.8-10.8)
--- NOTE | 2021-04-25 22:40 | HMH.EDSYNC ---
ED Disposition Clinical Impression: Syncope due to orthostatic hypotension Disposition: Home, Self-Care Condition on Discharge: Good Instructions: DI for Syncope in Adults (Fainting) Additional Instructions: Please reduce the dose of your beta-abdoulaye (metoprolol) by one half for the next few days. Instead of taking metoprolol twice a day please take it only once (the night dose). Follow-up with your primary care physician and tell him or her what happened today and that you had low blood pressure and a low heart rate. Therefore we reduced your beta-abdoulaye to one half the usual dose. After discussion with your primary care physician you may resume your original or an adjusted beta-abdoulaye dose as discussed with your primary care physician. Return to the emergency department if you feel worse in any way. Drink plenty of fluids for the next day or 2. Referrals: Katherine Sheldon MD [Primary Care Provider] - - Critical Care Critical Care Time: No Attestation: On 04/25/21, the high probability of a clinically significant, sudden or life threatening deterioration of the following system(s) required my full and direct attention, intervention and personal management. The time I documented below is in addition to time spent performing reported procedures but includes the following listed in this critical care notation. Medical Decision Making - Medical Records Medical records reviewed: Yes: I reviewed the patient's medical records. - Ru Inquiry Pt receiving controlled substance: No Vital Signs: 04/25/21 22:01 Temperature 97.8 F Temperature Source Oral Pulse Rate [Right] 64 Respiratory Rate 16 Blood Pressure [Right Arm] 92/53 L Blood Pressure Mean [Right Arm] 66 02 Sat by Pulse Oximetry 97 - Lab Data Lab results reviewed: Yes: I reviewed the patient's lab results. Lab Results 04/25/21 22:00: WBC 6.6, RBC 4.72, Hgb 14.5, Hct 44.4, MCV 94.0, MCH 30.8, MCHC 32.7, RDW 13.5, Plt Count 300, MPV 7.4, Neut % (Auto) 58.3, Lymph % (Auto) 32.9, Green % (Auto) 4.6, Eos % (Auto) 3.3, Baso % (Auto) 0.8, Neut # (Auto) 3.9, Lymph # (Auto) 2.2, Green # (Auto) 0.3, Eos # (Auto) 0.2, Baso # (Auto) 0.1 04/25/21 22:00: Sodium 137, Potassium 3.8, Chloride 102, Carbon Dioxide 24, Anion Gap 14.8, BUN 16, Creatinine 1.10, Estimated Creat Clear 57, Estimated GFR 68, Est GFR ( Amer) 82, Glucose 80, Calcium 8.8, Total Bilirubin 0.4, AST 23, ALT 12, Alkaline Phosphatase 49, Troponin I < 0.01, Total Protein 6.8, Albumin 4.4, Globulin 2.4, Albumin/Globulin Ratio 1.8 Result diagrams: 04/25/21 22:00 04/25/21 22:00 Orders (Tests/Meds): ED MEDICATIONS Generic Name Dose Route Start Last Admin Trade Name Freq PRN Reason Stop Dose Admin Sodium Chloride 1,000 mls @ 999 mls/hr 04/25/21 22:45 04/25/21 22:43 Sod Chlor 0.9% 1000ml Bag IV 04/25/21 23:45 999 mls/hr .Q1H1M ANDERSON Administration ORDERS Category Date Time Status Troponin I Q3H Lab 04/26/21 01:15 Ordered Troponin I Q3H Lab 04/26/21 04:15 Ordered - Radiology Data #1 Image(s): Chest Image Reviewed: Yes I have reviewed radiologist's interpretation Preliminary Findings: Abnormal (Atelectasis versus infiltrate.) - ECG Data Tracing #1 I reviewed this ECG and interpreted as documented below: The patient is EKG was done at 2213. It shows a normal sinus rhythm with a ventricular rate of 63 bpm. It is a normal EKG with normal intervals and normal axes and no evidence of ischemia. Medical Decision Narrative: The patient's work-up in the emergency department revealed that he is hypotensive. He is also mildly bradycardic. He states that he is on a beta-abdoulaye. I suspect that his symptoms are secondary to try genic and beta-abdoulaye effects. The patient's EKG looks normal. Orthostatic vital signs were performed and are within normal limits. However the patient's systolic blood pressure went from 91-73 on standing. This is still within normal
[2021-04-25 22:41] LABS: Alanine Aminotransferase 12 U/L (12-78); Albumin Level 4.4 g/dl (3.5-5.0); Albumin/Globulin Ratio 1.8 (1.1-1.8); Alkaline Phosphatase 49 U/L (38-126); Anion Gap 14.8 mEq/L (5-15); Aspartate Amino Transferase 23 U/L (17-59); Bilirubin,Total 0.4 mg/dl (0.2-1.3); Blood Urea Nitrogen 16 mg/dl (9-20); Calcium 8.8 mg/dl (8.4-10.2); Carbon Dioxide 24 mmol/L (22.0-30.0); Chloride 102 mmol/L (98-107); Creatinine Clearance Estimated 57 mL/min (50-200); Estimated Glomerular Filt Rate 68 ml/min (>60); GFR (African American) 82 ML/MIN (>60); Globulin 2.4 g/dL (1.3-3.2); Glucose 80 mg/dl (74-100); Potassium 3.8 mmoL/L (3.5-5.1); Sodium 137 mmol/L (136-145); Total Protein,Serum 6.8 g/dl (6.3-8.2)
[2021-04-25 23:02] LABS: Troponin I < 0.01 ng/ml (0.00-0.034)
[2021-04-25 23:25] VITALS: BP 102/66; PULSE 69; O2SAT 98
--- NOTE | 2021-04-25 23:29 | PC.NURSE ---
called pt's per his request, and gave her an update on poc and that pt will be d/c shortly. She states she will have someone come to pick him up.
[2021-04-25 23:30] VITALS: BP 102/67; PULSE 65; RESP 18; TEMP 36.7; O2SAT 97
== END 2021-04-25 23:49 | disposition home or self-care (01) ==
PROVIDERS: Emergency Provider Emergency Medicine; PCP Family Medicine
DX: R55 Syncope and collapse (principal); I95.1 Orthostatic hypotension; F41.9 Anxiety disorder, unspecified; I10 Essential (primary) hypertension; I25.10 Atherosclerotic heart disease of native coronary artery without angina pectoris; E11.9 Type 2 diabetes mellitus without complications; E78.5 Hyperlipidemia, unspecified; F17.210 Nicotine dependence, cigarettes, uncomplicated; Z88.2 Allergy status to sulfonamides; Z79.899 Other long term (current) drug therapy
CPT/HCPCS: 71045; 80053; 84484; 85025; 93005; 96365; 99283

== ENCOUNTER 2021-04-27 13:20 | Day surgery (SDC) | payer MEDICARE, SELFPAY ==
[2021-04-27 13:51] VITALS: BP 128/79; PULSE 69; RESP 18; TEMP 36.8; O2SAT 96; BMI 32.3
[2021-04-27 14:03] VITALS: BP 115/76; PULSE 74; RESP 18; O2SAT 97
[2021-04-27 14:05] VITALS: PULSE 75; RESP 18; O2SAT 98
--- NOTE | 2021-04-27 14:10 | P.PCN_ITS ---
- Procedure Date: 04/27/21 Time: 14:10 Anesthesiologist:: David Peres MD Complications:: None Pre-procedure Diagnosis:: Degenerative disc disease of cervical spine with cervical facet arthropathy and cervical spondylosis Post-procedure Diagnosis:: Same Indications for Procedure:: Patient is a pleasant 50-year-old white male who we are treating for neck pain with cervical spondylosis and cervical facet arthropathy. He has increasing pain with extension and twisting. He is tender over the facet joints of C5-C6 and C6-C7. We will plan on bilateral cervical medial branch block/facet joint injections of C5-C6 and C6-C7 today. Procedure Details:: Cervical medial branch block Informed consent was obtained and the risk and benefits of the procedure was e xplained to the patient. The patient was into the procedure room and placed prone on the procedure table. The neck was prepped using ChloraPrep. C-arm fluoroscopy was used to view the cervical spine. The skin and subcutaneous tissues were anesthetized lidocaine. I placed 22-gauge spinal needles into the facet joints of C5-6, C6-7 bilaterally. Needle placement was confirmed with dye. After this I injected 1 mL lidocaine 1.5% and Depo-Medrol 20 mg into each facet joint/medial branch of C5-6, C6-7 bilaterally. We used a total of 80 mg of Medrol for both levels bilaterally. Patient tolerated the procedure well with no complications. Plan and Disposition:: We will follow-up with him in 2 weeks. Will reevaluate symptoms at that time. If successful we will plan on RF ablation to the facet joint/medial branches of C5-C6 and C6-C7.
[2021-04-27 14:15] VITALS: BP 101/71; PULSE 74; RESP 20; O2SAT 97
== END 2021-04-27 14:00 | disposition home or self-care (01) ==
LOC: SC.PAINP 13:21
PROVIDERS: PCP Family Medicine; Visit Provider Anesthesiology
DX: M50.30 Other cervical disc degeneration, unspecified cervical region (principal); M47.812 Spondylosis without myelopathy or radiculopathy, cervical region; M54.02 Panniculitis affecting regions of neck and back, cervical region; J44.9 Chronic obstructive pulmonary disease, unspecified; I25.10 Atherosclerotic heart disease of native coronary artery without angina pectoris; I10 Essential (primary) hypertension; E78.5 Hyperlipidemia, unspecified; I73.9 Peripheral vascular disease, unspecified; Z95.5 Presence of coronary angioplasty implant and graft; Z88.2 Allergy status to sulfonamides; Z88.8 Allergy status to other drugs, medicaments and biological substances; Z72.0 Tobacco use
CPT/HCPCS: 64490; 64491; J1040; Q9966

== ENCOUNTER → 2021-05-15 13:16 | Outpatient (POV) | payer MEDICARE, SELFPAY ==
[2021-05-15 13:53] VITALS: BP 116/79; PULSE 59; RESP 18; O2SAT 99; BMI 30.4
--- NOTE | 2021-05-15 15:01 | HMH.PAINSOAP ---
[facility] Pain Management SOAP Note Subjective:: Patient is a pleasant 60-year-old male male who presents today for follow-up after a medial branch block/facet joint injection at the C5-6 C6-C7 area bilaterally. He reports he got significant relief until the last 2 to 3 days. His pain has returned. Patient reports he got up to 80% relief with the injections. He was much more functional and able to turn his head from side to side. Patient's pain has returned at a 6 out of 10 level. He has tried physical therapy for more than 6 weeks and continues with home stretching. He is on Plavix. He is unable to take anti-inflammatories. Patient would like to proceed with a repeat medial branch block. He does continue using ice and heat therapies. Review of Systems General: No recent weight changes, no fever, no sleep disturbances Respiratory: No cough, no shortness of air, no recurring pulmonary infections Cardiovascular/peripheral vascular: No chest pain, no palpitations, no edema, no shortness of breath Gastrointestinal: No new onset incontinence, normal bowel movements reported Genitourinary: No new onset incontinence Musculoskeletal: Neck pain worse when turning his head Psychiatric: [Normal mood/affect] Neurological: [Denies weakness in extremities], [denies balance issues] Objective:: Physical exam General: Alert and oriented x3, no acute distress, pleasant and cooperative Lungs: Respirations even and unlabored, symmetrical chest expansion Eyes: PERRL Musculoskeletal: Flexion and extension of cervical [spine] somewhat guarded secondary to pain, normal gait noted, positive Spurling's test Neurological: Speech clear, no gross sensory deficit Assessment:: Degenerative disc disease cervical spine cervical facet arthropathy and cervical spondylosis Plan:: We will schedule the patient for #2 medial branch block/facet joint injections at C5-C6 C6-C7 area. He is on Plavix therapy and will need to hold his anticoagulation therapy prior to the procedure. He is not diabetic. We will see the patient back after his injection for further evaluation. If he does get significant relief at 80% or more we will proceed with an RFA to these areas. Possible side effects of corticosteroids have been discussed with the patient. Risks and benefits of the procedure have been explained to the patient. Patient would like to proceed with the procedure. Patient has been instructed to contact the clinic with any concerns before the next appointment. Dr. Peres has reviewed this note and agrees with this plan of care. This note was dictated using voice recognition software and make contain errors or omissions. [facility] History I have reviewed the patient's past medical history: Yes Medical History: Reports:: Anxiety, Chronic Obstructive Pulmonary Disease (COPD), Coronary Artery Disease, Diabetes Mellitus Type 2, Hyperlipidemia, Hypertension, Lung Disease, Palpitations, Peripheral Artery Disease, Peripheral Vascular Disease Denies:: Cancer, Diabetes Mellitus Type 1, Internal Pacemaker, MRSA, Seizures *Have you ever received a pneumonia vaccine?: Yes *Have you received a flu vaccine this season?: No Other Medical History: Reports: Arthritis, Other Laterality Cases: Left: Carpal Tunnel Release, Other Other Surgeries: Yes: Cardiac Catheterization, Cardiac Surgery, Colonoscopy, Coronary Stent, Hernia Repair, Sinus Surgery, Other (left elbow). No: Pacemaker Amputation: No Fractures: No - *Social History Smoking Status: Current every day smoker Tobacco Type: cigarettes # Packs/Day (cigarettes): 1 #Yrs smoked (if former smoker): 45 Alcohol Intake: never Alcohol Intake Frequency:: holidays/special occasions only Substance Use Type: denies use *Occupational Status:: unemployed Housing: house Household Members: spouse *Travel in the last 8 weeks: None - Psychiatric History Pschychiatric History:: Reports:: Anxiety Family Hx:: Coronary Artery Disease, Hear
== END ==
PROVIDERS: Visit Provider Clinical Nurse Specialist Family Health
DX: M50.30 Other cervical disc degeneration, unspecified cervical region (principal); M54.02 Panniculitis affecting regions of neck and back, cervical region; M47.812 Spondylosis without myelopathy or radiculopathy, cervical region
CPT/HCPCS: 99212; G0463

== ENCOUNTER 2021-06-08 12:30 | Day surgery (SDC) | payer MEDICARE, SELFPAY ==
[2021-06-08 12:38] VITALS: BP 132/71; PULSE 65; RESP 18; TEMP 36.4; O2SAT 99; BMI 30.8
[2021-06-08 13:08] VITALS: BP 136/74; PULSE 67; RESP 18; O2SAT 97
[2021-06-08 13:10] VITALS: PULSE 72; RESP 18; O2SAT 97
[2021-06-08 13:15] VITALS: BP 110/70; PULSE 70; RESP 20; O2SAT 97
--- NOTE | 2021-06-08 13:50 | P.PCN_ITS ---
- Procedure Date: 06/08/21 Time: 13:51 Anesthesiologist:: Alyssa Palomo MD Complications:: None Pre-procedure Diagnosis:: Degenerative disc disease of the cervical spine, cervical facet arthropathy, cervical spondylosis Post-procedure Diagnosis:: Same Indications for Procedure:: This patient is a very pleasant 61-year-old white male who presents today with chronic neck pain related to the above diagnosis. He has tried and failed conservative treatment including oral pain medications and home stretching program for greater than 6 weeks. Plan for today is for the patient to undergo diagnostic cervical facet joint/medial branch block injections at C5-C6 and C6- C7 on the RIGHT . Procedure Details:: Cervical medial branch block Informed consent was obtained and the risk and benefits of the procedure was explained to the patient. The patient was into the procedure room and placed prone on the procedure table. The neck was prepped using ChloraPrep. C-arm fluoroscopy was used to view the cervical spine. The skin and subcutaneous tissues were anesthetized lidocaine. I placed 22-gauge spinal needles into the facet joints of C5-6, C6-7 on the right needle placement was confirmed with dye. After this I injected 1 mL lidocaine 1.0% and Depo-Medrol 13 mg into each facet joint/medial branch of C5-6, C6-7 and C7-T1 on the right we used a total of 80 mg of Medrol for all 2 levels bilaterally. Patient tolerated the procedure well with no complications. Plan and Disposition:: We will follow-up with this patient in 1 week. Will reevaluate pain symptoms at that time. We will also perform cervical facet joint/medial branch block injection at C5-C6 and C6-C7 on the left at the next visit.
== END 2021-06-08 13:15 | disposition home or self-care (01) ==
LOC: SC.PAINP 12:31
PROVIDERS: PCP Family Medicine; Visit Provider Anesthesiology Pain Medicine
DX: M50.30 Other cervical disc degeneration, unspecified cervical region (principal); M54.02 Panniculitis affecting regions of neck and back, cervical region; M47.812 Spondylosis without myelopathy or radiculopathy, cervical region; I25.10 Atherosclerotic heart disease of native coronary artery without angina pectoris; I73.9 Peripheral vascular disease, unspecified; E78.5 Hyperlipidemia, unspecified; I10 Essential (primary) hypertension; J44.9 Chronic obstructive pulmonary disease, unspecified; E11.9 Type 2 diabetes mellitus without complications; F41.9 Anxiety disorder, unspecified; Z72.0 Tobacco use; Z88.2 Allergy status to sulfonamides
CPT/HCPCS: 64490; 64491; 64492; J1040; Q9966

== ENCOUNTER 2021-06-13 09:37 | Day surgery (SDC) | payer MEDICARE, SELFPAY ==
[2021-06-13 09:46] VITALS: BP 146/88; PULSE 68; RESP 20; TEMP 36.5; O2SAT 98; BMI 30.8
[2021-06-13 09:58] VITALS: BP 142/87; PULSE 75; RESP 18; O2SAT 100
[2021-06-13 10:02] VITALS: BP 150/87; PULSE 69; RESP 18; O2SAT 99
--- NOTE | 2021-06-13 10:10 | HMH.PMPROC ---
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 He had cervical medial branch blocks at C5-C6 and C6-7 on the right side at his last visit. He is 80% better on the right side. He presents for left-sided cervical medial branch block/facet joint injections of C5-C6 and C6-C7 today. Procedure Details:: Cervical medial branch block Informed consent was obtained and the risk and benefits of the procedure was explained to the patient. The patient was into the procedure room and placed prone on the procedure table. The neck was prepped using ChloraPrep. C-arm fluoroscopy was used to view the cervical spine. The skin and subcutaneous tissues were anesthetized lidocaine. I placed 22-gauge spinal needles into the facet joints of C5-6, C6-7 on the left side. Needle placement was confirmed with dye. After this I injected 1 mL lidocaine 1.5% and Depo-Medrol 20 mg into each facet joint/medial branch of C5-6, C6-7 on the left side. We used a total of 40 mg Depo-Medrol for both facet joint/medial branches on the left side. Patient tolerated the procedure well with no complications. Plan and Disposition:: We will follow-up with this patient in 2 weeks. Will reevaluate symptoms at that time. If successful we will plan on RF ablation to the facet joint/medial branches of C5-C6 and C6-C7 bilaterally we will plan on RF ablation to one side followed by the opposite side 1 week later.
[2021-06-13 10:14] VITALS: BP 136/82; PULSE 62; RESP 20; O2SAT 99
== END 2021-06-13 10:15 | disposition home or self-care (01) ==
LOC: SC.PAINP 09:37
PROVIDERS: PCP Family Medicine; Visit Provider Anesthesiology
DX: M50.10 Cervical disc disorder with radiculopathy, unspecified cervical region (principal); M47.812 Spondylosis without myelopathy or radiculopathy, cervical region; M54.02 Panniculitis affecting regions of neck and back, cervical region; I25.10 Atherosclerotic heart disease of native coronary artery without angina pectoris; I73.9 Peripheral vascular disease, unspecified; E78.5 Hyperlipidemia, unspecified; I10 Essential (primary) hypertension; J44.9 Chronic obstructive pulmonary disease, unspecified; Z72.0 Tobacco use; Z88.2 Allergy status to sulfonamides; Z88.8 Allergy status to other drugs, medicaments and biological substances; Z79.899 Other long term (current) drug therapy
CPT/HCPCS: 64490; 64491; J1040; Q9966

== ENCOUNTER → 2021-06-28 12:44 | Outpatient (POV) | payer MEDICARE, SELFPAY ==
[2021-06-28 12:55] VITALS: BP 120/77; PULSE 70; RESP 18; O2SAT 99; BMI 29.9
--- NOTE | 2021-07-01 19:40 | HMH.PAINSOAP ---
[facility] Pain Management SOAP Note Subjective:: Patient is a 61-year-old white male who presents today for follow-up. He was last seen in the clinic on 06/13/2021. At that time, the patient did undergo a medial branch block/facet joint injection at C5-C6 C6-C7 on the left side. These injections were performed by Dr. Peres. Prior to these injections, the patient did undergo medial branch block/facet joint injection C5-C6 C6-C7 to the right side. The patient has gotten up to 100% relief for 1 week following the left medial branch block/facet joint injections.. Patient's pain did return. He is having difficulty turning his head from side to side. He says that he got 80% relief following the right side for up to 1 week. Patient's pain has returned. He did undergo conservative treatment of physical therapy for more than 6 weeks along with continued home stretching and anti-inflammatories in the past. Unfortunately, the patient does not get any long-term relief. He would like to proceed with the RFA. He says his pain is at its worst on the right side at this time. He does have pain to the left side as well, however, would like to proceed with right RFA initially. Patient says if he does get relief with the right side he would like to proceed then to the left side. He does rate his pain a 7 out of 10 today. Review of Systems General: No recent weight changes, no fever, no sleep disturbances Respiratory: No cough, no shortness of air, no recurring pulmonary infections Cardiovascular/peripheral vascular: No chest pain, no palpitations, no edema, no shortness of breath Gastrointestinal: No new onset incontinence, normal bowel movements reported Genitourinary: No new onset incontinence Musculoskeletal: Neck pain made worse when turning head or raising head up or down Psychiatric: [Normal mood/affect] Neurological: [Denies weakness in extremities], [denies balance issues] Objective:: Physical exam General: Alert and oriented x3, no acute distress, pleasant and cooperative Lungs: Respirations even and unlabored, symmetrical chest expansion Eyes: PERRL Musculoskeletal: Flexion and extension of cervical [spine] somewhat guarded secondary to pain, positive Spurling's test Neurological: Speech clear, no gross sensory deficit Assessment:: Degenerative disc disease cervical spine cervical facet arthropathy and cervical spondylosis Plan:: We will schedule the patient for a right side RFA C5-C6 C6-C7. He has had 2 rounds of medial branch block/facet joint injections for which he did get between 80 to 100% relief up to 1 week. He does continue with home stretching and anti-inflammatories. We will schedule him for the RFA and plan to see him back afterwards for further evaluation of symptoms. Patient is not on any anticoagulation therapy and is not diabetic. Risks and benefits of the procedure have been explained to the patient. Patient would like to proceed with the procedure. Patient has been instructed to contact the clinic with any concerns before the next appointment. Dr. Peres has reviewed this note and agrees with this plan of care. This note was dictated using voice recognition software and make contain errors or omissions. [facility] History I have reviewed the patient's past medical history: Yes Medical History: Reports:: Anxiety, Chronic Obstructive Pulmonary Disease (COPD), Coronary Artery Disease, Hyperlipidemia, Hypertension, Lung Disease, Palpitations, Peripheral Artery Disease, Peripheral Vascular Disease Denies:: Cancer, Diabetes Mellitus Type 1, Diabetes Mellitus Type 2, Internal Pacemaker, MRSA, Seizures *Have you ever received a pneumonia vaccine?: No *Have you received a flu vaccine this season?: No Other Medical History: Reports: Arthritis, Other Laterality Cases: Left: Carpal Tunnel Release, Other Other Surgeries: Yes: Cardiac Catheterization, Cardiac Surgery, Colonoscopy, Coronary Stent, Hernia Repair, Sinus Surgery, Other
== END ==
PROVIDERS: Visit Provider Clinical Nurse Specialist Family Health
DX: M50.10 Cervical disc disorder with radiculopathy, unspecified cervical region (principal); M47.812 Spondylosis without myelopathy or radiculopathy, cervical region; M54.02 Panniculitis affecting regions of neck and back, cervical region
CPT/HCPCS: 99212; G0463

== ENCOUNTER 2021-07-20 10:04 | Day surgery (SDC) | payer MEDICARE, SELFPAY ==
[2021-07-20 10:15] VITALS: BP 136/80; PULSE 71; RESP 20; TEMP 36.4; O2SAT 99; BMI 31.1
[2021-07-20 10:43] VITALS: BP 153/60; PULSE 76; RESP 18; O2SAT 97
[2021-07-20 10:58] VITALS: PULSE 76; RESP 18; O2SAT 97
[2021-07-20 11:11] VITALS: BP 148/90; PULSE 71; RESP 20; O2SAT 99
--- NOTE | 2021-07-20 11:13 | HMH.PMPROC ---
- Procedure Date: 07/20/21 Time: 11:13 Anesthesiologist:: David Peres MD Complications:: None Pre-procedure Diagnosis:: Degenerative disc disease of the cervical spine with cervical facet arthropathy and cervical spondylosis Post-procedure Diagnosis:: Same Indications for Procedure:: This patient is a pleasant 61-year-old white male who we are treating for neck pain with cervical spondylosis and cervical facet arthropathy. He has increasing pain over the facet joints of the cervical spine. He is done well with 2 cervical medial branch blocks with 80 to 90% relief in pain symptoms for over a week. He presents for RFA to the facet joint/medial branches of C5-C6 and C6-C7 today. We will start with the right side today followed by the left side in 2 weeks. Procedure Details:: Cervical RFA Informed consent was obtained and the risk and benefits of the procedure was explained to the patient. Patient was placed prone on the procedure table. The patient was prepped and draped in sterile fashion. C-arm fluoroscopy was used to view the lumbar spine. The skin and subcutaneous tissues were anesthetized using lidocaine. I placed 20-gauge RF needles into the facet joints of C5-C6 and C6-C7 levels on the right side. We underwent sensory stimulation. There is good sensory stimulation at 0.8 V. We underwent motor stimulation. There is no motor stimulation at 2.5 V. We then anesthetized these levels with lidocaine and Depo-Medrol. I used a total of 40 mg Depo-Medrol for both levels. I then burned both levels of C5-C6 and C6-C7 on the right side for 4 minutes at 80 ?C. Patient tolerated the procedure well with no complication. Plan and Disposition:: We will follow-up with him in 2 weeks. Will reevaluate his symptoms and plan on RF ablation to the facet joint/medial branches of C5-C6 and C6-C7 on the left side.
== END 2021-07-20 11:12 | disposition home or self-care (01) ==
LOC: SC.PAINP 10:05
PROVIDERS: PCP Family Medicine; Visit Provider Anesthesiology
DX: M50.30 Other cervical disc degeneration, unspecified cervical region (principal); M54.02 Panniculitis affecting regions of neck and back, cervical region; M47.812 Spondylosis without myelopathy or radiculopathy, cervical region; I25.10 Atherosclerotic heart disease of native coronary artery without angina pectoris; I73.9 Peripheral vascular disease, unspecified; E78.5 Hyperlipidemia, unspecified; I10 Essential (primary) hypertension; J44.9 Chronic obstructive pulmonary disease, unspecified
CPT/HCPCS: 64633; 64634; J1040

== ENCOUNTER → 2021-08-06 11:20 | Outpatient (POV) | payer MEDICARE, SELFPAY ==
[2021-08-06 11:42] VITALS: BP 119/80; PULSE 65; RESP 20; TEMP 36.4; O2SAT 99; BMI 30.8
--- NOTE | 2021-08-06 12:09 | P.CONS_ITS ---
[facility] Pain Management SOAP Note Subjective:: Patient is a very pleasant 61-year-old white male who presents today for follow- up. He is currently being treated for degenerative disc disease of the cervical spine with cervical facet arthropathy and spondylosis. He has previously undergone 2 cervical medial branch block injections with 80 to 90% pain relief in his symptoms for approximately 1 week. He has recently undergone cervical RFA to the right C5-C6 and C6-C7 facet joints/branches on December 18, [address] AL. He notes 100% pain relief that is ongoing from these injections at this time. Has not undergone right-sided cervical RFA injections yet, dates that he is interested in undergoing right-sided injections as his right-sided neck pain is severe and uncontrolled at this time. He rates his pain as a 6 out of 10 today. Objective:: General: Alert and oriented x3, no acute distress, pleasant and cooperative Lungs: Resps E/U, symmetric chest expansion Eyes: PERRL Musculoskeletal: limited flexion and extension of the cervical spine secondary to pain. Deep tendon reflexes were normal in bilateral upper and lower extremities. Motor exam was grossly intact in the bilateral upper and lower extremities. Tenderness to palpation over the left lower cervical joints. 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 We will schedule him for the above injections to be performed in 2 to 3 weeks. [facility] #[id number] was reviewed and appropriate. [facility] History Medical History: Reports:: Anxiety, Chronic Obstructive Pulmonary Disease (COPD), Coronary Artery Disease, Hyperlipidemia, Hypertension, Lung Disease, Palpitations, Peripheral Artery Disease, Peripheral Vascular Disease Denies:: Cancer, Diabetes Mellitus Type 1, Diabetes Mellitus Type 2, Internal Pacemaker, MRSA, Seizures *Have you ever received a pneumonia vaccine?: Yes *Have you received a flu vaccine this season?: Yes Other Medical History: Reports: Arthritis, Other Laterality Cases: Left: Carpal Tunnel Release, Other Other Surgeries: Yes: Cardiac Catheterization, Cardiac Surgery, Colonoscopy, Coronary Stent, Hernia Repair, Sinus Surgery, Other (left elbow). No: Pacemaker Amputation: No Fractures: No - *Social History Smoking Status: Current every day smoker Tobacco Type: cigarettes # Packs/Day (cigarettes): 1 #Yrs smoked (if former smoker): 45 Alcohol Intake: never Alcohol Intake Frequency:: holidays/special occasions only Substance Use Type: denies use *Occupational Status:: employed Housing: house Household Members: spouse *Travel in the last 8 weeks: None - Psychiatric History Pschychiatric History:: Reports:: Anxiety Family Hx:: Other
== END ==
PROVIDERS: Visit Provider Anesthesiology Pain Medicine
DX: M50.30 Other cervical disc degeneration, unspecified cervical region (principal); M47.812 Spondylosis without myelopathy or radiculopathy, cervical region; M54.02 Panniculitis affecting regions of neck and back, cervical region
CPT/HCPCS: 99212; G0463

== ENCOUNTER 2021-08-24 10:40 | Day surgery (SDC) | payer MEDICARE, SELFPAY ==
[2021-08-24 10:57] VITALS: BP 134/85; BP 142/86; PULSE 63; PULSE 71; RESP 18; RESP 20; TEMP 36.7; O2SAT 99; BMI 30.8
--- NOTE | 2021-08-24 11:26 | HMH.PMPROC ---
- Procedure Date: 08/24/21 Time: 11:26 Anesthesiologist:: David Peres MD Complications:: None Pre-procedure Diagnosis:: Degenerative disc disease of the cervical spine with cervical spondylosis and cervical facet arthropathy Post-procedure Diagnosis:: Same Indications for Procedure:: This patient is a pleasant 61-year-old white male who we are treating for neck pain with cervical spondylosis and cervical facet arthropathy. He is status post RFA of the facet joint/medial branches of C5-C6 and C6-C7 on the right side. He has no pain on the right side. He is 100% better. He presents for RF ablation to the same facet joints of C5-C6 and C6-7 on the left side today. Procedure Details:: Cervical RFA Informed consent was obtained and the risk and benefits of the procedure was explained to the patient. Patient was placed prone on the procedure table. The patient was prepped and draped in sterile fashion. C-arm fluoroscopy was used to view the lumbar spine. The skin and subcutaneous tissues were anesthetized using lidocaine. I placed 20-gauge RF needles into the facet joints of C5-C6 and C6-C7 levels on the left side. We underwent sensory stimulation. There is good sensory stimulation at 0.8 V. We underwent motor stimulation. There is no motor stimulation at 2.5 V. We then anesthetized these levels with lidocaine and Depo-Medrol. I used a total of 40 mg Depo-Medrol for both levels. I then burned both levels of C5-C6 and C6-C7 facet joint/medial branches on the left side for 4 minutes at 80 ?C. Patient tolerated the procedure well with no complication. Plan and Disposition:: We will follow-up with this patient in 2 weeks. Will reevaluate symptoms at that time.
[2021-08-24 11:40] VITALS: BP 146/84; PULSE 67; RESP 20; O2SAT 99
== END 2021-08-24 11:40 | disposition home or self-care (01) ==
LOC: SC.PAINP 10:42
PROVIDERS: PCP Family Medicine; Visit Provider Anesthesiology
DX: M50.10 Cervical disc disorder with radiculopathy, unspecified cervical region (principal); M47.812 Spondylosis without myelopathy or radiculopathy, cervical region; M54.02 Panniculitis affecting regions of neck and back, cervical region; I10 Essential (primary) hypertension; E78.5 Hyperlipidemia, unspecified; I73.9 Peripheral vascular disease, unspecified; I25.10 Atherosclerotic heart disease of native coronary artery without angina pectoris; J44.9 Chronic obstructive pulmonary disease, unspecified; Z72.0 Tobacco use; F41.9 Anxiety disorder, unspecified; F32.A Depression, unspecified; Z88.2 Allergy status to sulfonamides
CPT/HCPCS: 64633; 64634; J1040

== ENCOUNTER → 2021-09-20 13:04 | Outpatient (POV) | payer MEDICARE, SELFPAY ==
[2021-09-20 13:12] VITALS: BP 145/98; PULSE 113; RESP 20; TEMP 36.1; O2SAT 99; BMI 29.8
--- NOTE | 2021-09-20 13:53 | P.CONS_ITS ---
[facility] Pain Management SOAP Note Subjective:: Patient is a pleasant 59-year-old male who presents today for follow-up after a cervical RFA at C5-C6 and C6-C7 at the left side. After his procedure, patient had significant relief about 90 to 100%. He reports his pain to be 0 out of 10. He also previously had a RFA at C5-C6 and C6-C7 on the right side previously. Patient says that he has been able to increase the range of motion in his neck and been able to increase his activity. He reports no pain today. Review of Systems: General: No recent weight changes, no fever, no sleep disturbances Respiratory: No cough, no shortness of air, no recurring pulmonary infections Cardiovascular/peripheral vascular: No chest pain, no palpitations, no edema, no shortness of breath Gastrointestinal: No new onset incontinence, normal bowel movements reported Genitourinary: No new onset incontinence Musculoskeletal: Improving neck pain Psychiatric: [Normal mood/affect] Neurological: [Denies weakness in extremities], [denies balance issues] Objective:: Physical Exam: General: Alert and oriented x3, no acute distress, pleasant and cooperative, [on room air] Lungs: Respirations even and unlabored, symmetrical chest expansion Eyes: PERRL Musculoskeletal: Flexion and extension of cervical [spine] somewhat guarded se condary to pain, [antalgic gait noted] Neurological: Speech clear, no gross sensory deficit Assessment:: Cervical facet arthropathy Cervical spondylosis Degenerative disc disease of the cervical spine Plan:: Patient continues to have significant relief after his cervical RFA at C5-C6 and C6-C7. We will follow with this patient in 4 months to see if he needs a repeat RFA at these levels. Patient has been instructed to contact the clinic with any concerns before the next appointment. Dr. Peres has reviewed this note and agrees with this plan of care. This note was dictated using voice recognition software and make contain errors or omissions. [facility] History Medical History: Reports:: Anxiety, Chronic Obstructive Pulmonary Disease (COPD), Coronary Artery Disease, Hyperlipidemia, Hypertension, Lung Disease, Palpitations, Peripheral Artery Disease, Peripheral Vascular Disease Denies:: Cancer, Diabetes Mellitus Type 1, Diabetes Mellitus Type 2, Internal Pacemaker, MRSA, Seizures *Have you ever received a pneumonia vaccine?: No *Have you received a flu vaccine this season?: No Other Medical History: Reports: Arthritis, Other Laterality Cases: Left: Carpal Tunnel Release, Other Other Surgeries: Yes: Cardiac Catheterization, Cardiac Surgery, Colonoscopy, Coronary Stent, Hernia Repair, Sinus Surgery, Other (left elbow). No: Pacemaker Amputation: No Fractures: No - *Social History Smoking Status: Current every day smoker Tobacco Type: cigarettes # Packs/Day (cigarettes): 1 #Yrs smoked (if former smoker): 45 Alcohol Intake: never Alcohol Intake Frequency:: holidays/special occasions only Substance Use Type: denies use *Occupational Status:: unemployed Housing: house Household Members: spouse *Travel in the last 8 weeks: None - Psychiatric History Pschychiatric History:: Reports:: Anxiety Family Hx:: No significant family history
== END ==
PROVIDERS: Visit Provider Student in an Organized Health Care Education/Training Program
DX: M46.02 Spinal enthesopathy, cervical region (principal); M47.812 Spondylosis without myelopathy or radiculopathy, cervical region; M50.30 Other cervical disc degeneration, unspecified cervical region
CPT/HCPCS: 99212; G0463

== ENCOUNTER → 2022-04-12 15:38 | Outpatient (CLI) | payer MEDICARE, SELFPAY ==
--- NOTE | 2022-04-12 15:45 | XR_ITS ---
FINAL REPORT CLINICAL HISTORY: fall, c/o neck pain, stiff neck COMPARISON: 12/25/2020 FINDINGS: CERVICAL SPINE Three views were obtained. There is no acute fracture. There is no malalignment. There are mild and moderate degenerative changes with osteophytes in the lower cervical spine which appear stable. Note is made of bilateral vascular calcifications. IMPRESSION: Mild and moderate degenerative changes with stable appearing osteophytes in lower cervical spine. Reviewed, Interpreted and Dictated by Harry Hinson III, MD Transcribed by Roxie Munguia Authenticated and . [facility]
== END ==
PROVIDERS: PCP Family Medicine; Visit Provider Physician Assistant
DX: M54.2 Cervicalgia (principal); S19.9XXA Unspecified injury of neck, initial encounter
CPT/HCPCS: 72040

== ENCOUNTER → 2022-04-24 14:32 | Outpatient (CLI) | payer MEDICARE, SELFPAY ==
--- NOTE | 2022-04-24 14:38 | MR_ITS ---
FINAL REPORT CLINICAL HISTORY: INJURY OF NECK, INITIAL ENCOUNTER FALL X 3 WEEKS AGO NECK PAIN SINCE HEADACHE COMPARISON: 03/30/2021 FINDINGS: Multiplanar MR imaging of the cervical spine was performed without contrast. On the sagittal T2-weighted images, disc degeneration is seen throughout. The C2 dens has an abnormal appearance with bone marrow edema at the base and decreased signal more superiorly. A questionable fracture line is now seen through the mid dense of uncertain age but much of this abnormal signal seen on the prior and felt to be inflammatory. The presumed pannus anterior and posterior to the C2 dens has increased, may represent inflammatory arthritis. The vertebral alignment is normal. The cervical spinal cord has an unremarkable appearance without evidence of mass, edema or syrinx. No significant canal stenosis is identified. The cervicomedullary junction is normal. C2-3: There is no significant canal stenosis or neural foraminal narrowing. C3-4: An annular bulge and uncovertebral osteophytes are present. There is a small central disc protrusion. There is moderate bilateral neural foraminal narrowing. C4-5: An annular bulge is present. There is a small central disc protrusion with severe right and moderate left neural foraminal narrowing. C5-6: Disc osteophyte complex is present with moderate right and severe left neural foraminal narrowing. C6-7: Disc osteophyte complex is present with severe bilateral neural foraminal narrowing. C7-T1: Annular bulge is present with mild bilateral neural foraminal narrowing. IMPRESSION: Abnormal appearance of the C2 dens. Much of this is chronic and inflammatory, similar to previous but slightly increased pannus may represent inflammatory arthritis There is a questionable subacute dens fracture. CT is recommended to further evaluate. Multilevel degenerative disc disease. Radiology technologists Elisa Melendez and Rosie Moeller were notified of findings on 04/24/2022 at 4:30 p.m. Reviewed, Interpreted and Dictated by Harry Hinson III, MD Transcribed by Kennedi Romero Authenticated and . [facility]
== END ==
PROVIDERS: PCP Family Medicine; Visit Provider Physician Assistant
DX: M54.2 Cervicalgia (principal); S19.9XXA Unspecified injury of neck, initial encounter
CPT/HCPCS: 72141; 76376

== ENCOUNTER → 2022-05-02 13:50 | Outpatient (CLI) | payer MEDICARE, SELFPAY ==
--- NOTE | 2022-05-02 13:53 | CT_ITS ---
FINAL REPORT TECHNIQUE: Axial images were obtained of the cervical spine by computed tomography. Coronal and sagittal reconstruction process performed. This study was performed with techniques to keep radiation doses as low as reasonably achievable (ALARA). Individualized dose reduction techniques using automated exposure control or adjustment of mA and/or kV according to the patient''s size were employed. CLINICAL HISTORY: Abnormal MRI neck pain, FINDINGS: Cervical vertebrae show normal height. On the sagittal images, there is a transverse fracture through the base of the dens. There is sclerosis on either side of the fracture line. This is well seen on sagittal images 32-34 of series 601. There is moderate disc space narrowing at C5-6 with a prominent posterior osteophyte formation eccentric to the left. There is moderate compromise of the left side of the spinal canal, well seen on axial images 57-59 of series 3. There is moderate bilateral neural foraminal narrowing at C5-6. IMPRESSION: Transverse fracture through the base of the dens as above. Moderate disc space narrowing at C5-6 with osteophyte formation and compromise of these spinal canal and bilateral neural foramen. Reviewed, Interpreted and Dictated by Karson Montes MD Transcribed by Kiana Robles Authenticated and [facility]
== END ==
PROVIDERS: PCP Family Medicine; Visit Provider Physician Assistant
DX: R93.89 Abnormal findings on diagnostic imaging of other specified body structures (principal)
CPT/HCPCS: 72125

== ENCOUNTER → 2022-09-05 13:13 | Outpatient (CLI) | payer MEDICARE, SELFPAY ==
--- NOTE | 2022-09-05 13:27 | CT_ITS ---
FINAL REPORT TECHNIQUE: Axial images through the brain were performed before and after the administration of IV contrast. Coronal reconstructions were submitted. This study was performed with techniques to keep radiation doses as low as reasonably achievable (ALARA). Individualized dose reduction techniques using automated exposure control or adjustment of mA and/or kV according to the patient's size were employed. CLINICAL HISTORY: DIZZINESS COMPARISON: none FINDINGS: There is no evidence of intracranial hemorrhage or mass. The ventricular size is within normal limits. There is no evidence of shift of the midline structures. No abnormal extra axial fluid collection is identified. No skull abnormality is seen on the bone window images. IMPRESSION: No acute intracranial process. Reviewed, Interpreted and Dictated by Harry Hinson III, MD Transcribed by Lis Pardo Authenticated and [facility]
[2022-09-05 14:49] LABS: Basophils # 0.1 K/mm3 (0-0.2); Basophils % 1.2 % (0.1-2.0); Eosinophils # 0.2 K/mm3 (0.0-0.4); Eosinophils % 2.7 % (0.1-12.0); Hematocrit 46.1 % (42.0-52.0); Hemoglobin 14.6 g/dL (14.1-18.0); Lymphocytes # 1.7 K/mm3 (0.7-4.5); Lymphocytes % 29.7 % (10-50); Mean Corpuscular HGB Conc 31.7 g/dL (31.8-35.4); Mean Corpuscular Hemoglobin 28.7 pg (27.0-31.2); Mean Corpuscular Volume 90.7 fl (80-94); Monocytes # 0.3 K/mm3 (0.1-1.0); Monocytes % 5.8 % (1.7-9.3); Neutrophils # 3.4 K/mm3 (1.8-7.8); Neutrophils % 60.5 % (37.0-80.0); Platelet Count 311 K/mm3 (142-424); Red Blood Count 5.08 M/mm3 (4.60-6.20); White Blood Count 5.6 K/mm3 (4.8-10.8)
[2022-09-05 15:20] LABS: Anion Gap 13.3 mEq/L (5-15); Blood Urea Nitrogen 13 mg/dl (9-20); Calcium 9.6 mg/dl (8.4-10.2); Carbon Dioxide 25 mmol/L (22.0-30.0); Chloride 103 mmol/L (98-107); Estimated Glomerular Filt Rate 98 ml/min (>60); GFR (African American) 118 ML/MIN (>60); Glucose 103 mg/dl (74-100); Potassium 5.3 mmoL/L (3.5-5.1); Sodium 136 mmol/L (136-145)
== END ==
PROVIDERS: PCP Family Medicine; Visit Provider Physician Assistant
DX: R42 Dizziness and giddiness (principal); R55 Syncope and collapse; R79.89 Other specified abnormal findings of blood chemistry; E78.5 Hyperlipidemia, unspecified; R00.2 Palpitations; S12.9XXS Fracture of neck, unspecified, sequela; Z87.828 Personal history of other (healed) physical injury and trauma
CPT/HCPCS: 36415; 70470; 80048; 85025; 93225; 93226; Q9966

== ENCOUNTER → 2022-09-17 12:48 | Outpatient (CLI) | payer MEDICARE, SELFPAY ==
--- NOTE | 2022-09-17 12:51 | CA_ITS ---
FINAL REPORT TECHNIQUE: Color Doppler, duplex Doppler and fournier scale sonography of the bilateral neck arterial vasculature was performed. Velocities were measured in the carotid arteries. Stenosis evaluation based on the validated velocity criteria. CLINICAL HISTORY: LAWRENCE,HTN,HLD,SMOKER,DIZZINESS COMPARISON: 01/05/2021 FINDINGS: The peak systolic velocity of the right common carotid artery is 86 cm/s. The peak systolic velocity of the right internal carotid artery is 252 cm/s and end diastolic velocity 102 cm/s. The ICA/CCA ratio is 4.0. A small amount of plaque is present. The right external carotid artery is patent. The right vertebral artery is patent with antegrade flow. The peak systolic velocity of the left common carotid artery is 94 cm/s. The peak systolic velocity of the left internal carotid artery is 75 cm/s and end diastolic velocity 34 cm/s. The ICA/CCA ratio is 1.2. A moderate amount of plaque is present. The left external carotid artery is patent.The left vertebral artery is patent with antegrade flow. IMPRESSION: 70-99% carotid stenosis on the right. Less than 50% carotid stenosis on the left. Findings are similar previous. If indicated, CTA or MRA could further evaluate. Reviewed, Interpreted and Dictated by Sonal Staton MD Transcribed by Kennedi Romero Authenticated and [facility]
== END ==
PROVIDERS: PCP Family Medicine; Visit Provider Physician Assistant
DX: I65.23 Occlusion and stenosis of bilateral carotid arteries (principal)
CPT/HCPCS: 93880

== ENCOUNTER → 2022-09-26 08:48 | Outpatient (CLI) | payer MEDICARE, SELFPAY ==
--- NOTE | 2022-09-26 08:48 | CT_ITS ---
FINAL REPORT TECHNIQUE: The patient was injected with IV contrast. Axial images were obtained through the chest in a PE protocol. 3-D reconstruction images were also performed. Individualized dose reduction techniques using automated exposure control or adjustment of the MA and/or KV according to patient's size were employed. CLINICAL HISTORY: to rule out PE, sob, syncope COMPARISON: 03/06/[address] chest 12/30/2019 FINDINGS: Mediastinal vasculature is adequately opacified. No pulmonary artery filling defects are identified to suggest PE. There is no aortic dissection. There is no axillary adenopathy. There is no mediastinal mass or adenopathy. The heart size is normal. There is no pericardial or pleural effusion. There is a stable small pleural based nodule in the anterior right upper lobe measuring proximally 5 mm best seen on image 53 series 3. The previously noted pleural based nodule at the right lung base measuring 4 mm seen on image 92 series 3 is stable. Limited images of the upper abdomen are unremarkable. IMPRESSION: No pulmonary embolus or dissection. Stable right lung nodules as above. Reviewed, Interpreted and Dictated by Karson Montes MD Transcribed by Lis Pardo Authenticated and [facility]
== END ==
PROVIDERS: PCP Family Medicine; Visit Provider Obstetrics & Gynecology Gynecologic Oncology
DX: R06.00 Dyspnea, unspecified; R55 Syncope and collapse; R00.0 Tachycardia, unspecified; R94.30 Abnormal result of cardiovascular function study, unspecified; R94.31 Abnormal electrocardiogram [ECG] [EKG]; E11.69 Type 2 diabetes mellitus with other specified complication; E66.9 Obesity, unspecified; E78.2 Mixed hyperlipidemia; F17.200 Nicotine dependence, unspecified, uncomplicated; H53.483 Generalized contraction of visual field, bilateral; I10 Essential (primary) hypertension; I11.9 Hypertensive heart disease without heart failure; I25.10 Atherosclerotic heart disease of native coronary artery without angina pectoris; I65.23 Occlusion and stenosis of bilateral carotid arteries; I73.9 Peripheral vascular disease, unspecified; J43.9 Emphysema, unspecified; Z95.5 Presence of coronary angioplasty implant and graft
CPT/HCPCS: 71275; Q9967

== ENCOUNTER 2023-03-15 10:18 | Emergency (ER) | payer MEDICARE, SELFPAY ==
[2023-03-15] VITALS (10 sets, daily range): BP systolic 121–158; BP diastolic 75–110; PULSE 83–111; RESP 17–20; TEMP 36.7–36.8; O2SAT 96–100; BMI 25.5
--- NOTE | 2023-03-15 10:26 | HMH.EDEPIS ---
Discharge Plan Disposition Patient Disposition: Home, Self-Care Condition: Good Prescriptions Prescriptions: No Action quetiapine 50 mg tablet 75 mg PO DAILY ibuprofen 800 mg tablet 800 mg PO Q8H PRN (Reason: pain) metoprolol tartrate 25 mg tablet 25 mg PO BID Qty: 60 5RF gemfibrozil 600 mg tablet 600 mg PO BID benztropine 1 mg tablet 1 mg PO DAILY Ventolin HFA 90 mcg/actuation HFA aerosol inhaler 1 puff INHALATION Q6H PRN (Reason: Shortness Of Breath) lamotrigine 200 mg tablet 200 mg PO BID glimepiride 2 mg tablet 2 mg PO DAILY aspirin 81 mg tablet,delayed release (DR/EC) 81 mg PO DAILY vitamin B complex [B Complex-Vitamin B12] Tablet 1 tab PO DAILY coenzyme Q10 [Co Q-10] 200 mg capsule 200 mg PO DAILY clopidogrel 75 mg tablet 75 mg PO DAILY Qty: 90 3RF lisinopril 20 MG tablet 20 mg PO DAILY alirocumab 75 MG/ML pen injector 75 mg SQ Q2W Rx Instructions: inject into abdomen, thigh, or upper arm (deltoid muscle); rotate sites Referrals Follow up/Referrals: Katherine Sheldon MD [Primary Care Provider] - See instructions Activity Restrictions/Add. Instructions Additional Instructions/Restrictions: Please return to the emergency department immediately if you feel worse in any way. Follow-up with your primary care doctor in about 3 to 4 days even if you feel better. Clinical Impressions Clinical Impression: Acute anterior epistaxis, Epistaxis Instructions Patient Instructions: Nosebleed, DI for Nosebleed Discharge ED Provider: Luh Olivier Epistaxis HPI General Chief complaint: Epistaxis Stated complaint: nose bleed Time Seen by Provider: 03/15/23 10:26 History of Present Illness HPI Narrative: The patient presents to the emergency department complaining of spontaneous epistaxis that began approximately 8 AM today. The patient takes Plavix because he has had coronary stents placed approximately 2 years ago. He denies any other symptoms. He denies trauma. He denies gums bleeding or easy bruising. Related Data Home Medications Medication Instructions Recorded Confirmed gemfibrozil 600 mg tablet 600 mg PO BID Cholesterol 01/07/18 09/25/22 albuterol sulfate 90 mcg/actuation 1 puff inhalation Q6H PRN 10/26/18 09/25/22 aerosol inhaler (Ventolin HFA) Shortness Of Breath lamotrigine 200 mg tablet 200 mg PO BID . 01/04/19 09/25/22 benztropine 1 mg tablet 1 mg PO DAILY Tremors 07/05/20 09/25/22 glimepiride 2 mg tablet 2 mg PO DAILY Diabetes 07/05/20 09/25/22 ibuprofen 800 mg tablet 800 mg PO Q8H PRN pain 01/03/21 09/25/22 quetiapine 50 mg tablet 75 mg PO DAILY . 01/03/21 09/25/22 lisinopril 20 mg tablet 20 mg PO DAILY blood pressure 04/09/21 09/25/22 aspirin 81 mg tablet,delayed 81 mg PO DAILY . 07/04/21 09/25/22 release coenzyme Q10 200 mg capsule (Co 200 mg PO DAILY . 07/04/21 09/25/22 Q-10) vitamin B complex (B 1 tab PO DAILY . 07/04/21 09/25/22 Complex-Vitamin B12 tablet) alirocumab 75 mg/mL subcutaneous 75 mg SQ Q2W . 07/20/21 09/25/22 pen injector Previous Rx's Medication Instructions Recorded metoprolol tartrate 25 mg tablet 25 mg PO BID blood pressure #60 01/03/21 tabs clopidogrel 75 mg tablet 75 mg PO DAILY . #90 tabs 09/06/22 Allergies Allergy/AdvReac Type Severity Reaction Status Date / Time Sulfa (Sulfonamide Allergy Intermediate I-RASH Verified 09/25/22 15:33 Antibiotics) rosuvastatin [From Crestor] Allergy Mild Verified 09/25/22 15:33 tramadol Allergy Verified 09/25/22 15:33 atorvastatin AdvReac Intermediate myalgias Verified 09/25/22 15:33 ezetimibe [From Zetia] AdvReac Intermediate myalgia Verified 09/25/22 15:33 isosorbide AdvReac Intermediate headaches Verified 09/25/22 15:33 [facility] Disclaimer: The information contained in this section may have been updated after the patient was seen, as this information can be updated by other users. Medi
--- NOTE | 2023-03-15 10:29 | PC.NURSE ---
Dr. Olivier at BS for pt eval
--- NOTE | 2023-03-15 10:41 | PC.NURSE ---
BLOOD COLLECTED AND SENT TO LAB
[2023-03-15 10:46] LABS: Basophils # 0.1 K/mm3 (0-0.2); Basophils % 0.9 % (0.1-2.0); Eosinophils # 0.2 K/mm3 (0.0-0.4); Hematocrit 51.5 % (42.0-52.0); Lymphocytes # 1.5 K/mm3 (0.7-4.5); Lymphocytes % 21.6 % (10-50); Mean Corpuscular HGB Conc 31.1 g/dL (31.8-35.4); Mean Corpuscular Hemoglobin 28.8 pg (27.0-31.2); Mean Corpuscular Volume 92.7 fl (80-94); Mean Platelet Volume 8.3 fl (7.4-10.4); Monocytes # 0.3 K/mm3 (0.1-1.0); Monocytes % 4.7 % (1.7-9.3); Neutrophils # 4.8 K/mm3 (1.8-7.8); Neutrophils % 69.7 % (37.0-80.0); Platelet Count 359 K/mm3 (142-424); Red Blood Count 5.56 M/mm3 (4.60-6.20); Red Cell Distribution Width 14.4 % (11.5-17.5); White Blood Count 6.8 K/mm3 (4.8-10.8)
--- NOTE | 2023-03-15 10:54 | PC.NURSE ---
DR WINSLOW AT BEDSIDE TO REEVALUATE PT
[2023-03-15 10:55] LABS: Activated Partial Thrombo Time 33.6 seconds (22.8-30.6); INR 1.01 (0.9-1.1); Prothrombin Time 10.9 seconds (10.1-12.5)
--- NOTE | 2023-03-15 12:44 | PC.NURSE ---
pt called out reporting that his nose was still bleeding around the balloon. MD instilled more air into the balloon. Pt given clean wash cloth
--- NOTE | 2023-03-15 13:16 | PC.NURSE ---
pt called out wanting nasal thing took out he MD victoria advised, he went in to see pt.
== END 2023-03-15 14:23 | disposition home or self-care (01) ==
PROVIDERS: Emergency Provider Emergency Medicine; PCP Family Medicine
DX: R04.0 Epistaxis (principal); F17.210 Nicotine dependence, cigarettes, uncomplicated; I25.10 Atherosclerotic heart disease of native coronary artery without angina pectoris; I11.9 Hypertensive heart disease without heart failure; E78.5 Hyperlipidemia, unspecified; Z79.01 Long term (current) use of anticoagulants; Z95.5 Presence of coronary angioplasty implant and graft
CPT/HCPCS: 30901; 85025; 85610; 85730; 96372; 99283

== ENCOUNTER 2023-08-11 13:02 | Outpatient (CLI) | payer MEDICARE, SELFPAY ==
--- NOTE | 2023-08-11 13:07 | XR_ITS ---
FINAL REPORT CLINICAL HISTORY: LT HAND PAIN FINDINGS: LEFT HAND Three views demonstrate no acute fracture or dislocation. The visualized joint spaces are normally aligned. There is mild to moderate degenerative change at the DIP and PIP joints. There is mild soft tissue swelling overlying the dorsum of the distal metacarpals. IMPRESSION: No acute bony abnormality. Reviewed, Interpreted and Dictated by Karson Montes MD Transcribed by Kamille Smith Authenticated and . [facility]
== END 2023-08-11 23:59 ==
LOC: RAD 13:04
PROVIDERS: PCP Family Medicine; Visit Provider Family Medicine
DX: M79.642 Pain in left hand (principal)
CPT/HCPCS: 73130

== ENCOUNTER 2024-04-20 08:39 | Outpatient (CLI) | payer MEDICARE, SELFPAY ==
--- NOTE | 2024-04-20 08:45 | CT_ITS ---
FINAL REPORT CLINICAL HISTORY: .CURRENT SMOKER 1 PPD X 50 YEARS COMPARISON: CTA chest dated 09/26/2022 FINDINGS: Axial images were obtained from the lung apex to the mid abdomen by computed tomography. Low-dose protocol was utilized. CTDl vol(mGy): DLP (mGy-cm): FINDINGS: There is no axillary adenopathy. There is no hilar or mediastinal adenopathy. There is evidence of old calcified granulomatous disease. There is significant LAD coronary artery calcifications. The heart size is normal. There is no pericardial or pleural effusion. There is diffuse bronchial thickening. Atelectasis is seen in the right lung base. In the anterior upper lobe, there is subpleural fibrosis. There is a stable 5 mm subpleural nodule in the right upper lobe seen on image 33 of series 3. Previously seen pleural-based nodule in the right lower lobe is not seen on today's exam and is likely obscured by atelectasis. No other pulmonary nodule is seen. Limited images of the upper abdomen are unremarkable. IMPRESSION: Lung RADS category 2S. Recommend 12 month follow-up low-dose chest CT. S modifier: Coronary artery calcifications and bronchial thickening. Reviewed, Interpreted and Dictated by Cesar Santa MD Transcribed by Kiana Robles Authenticated and [facility]
== END 2024-04-20 23:59 | disposition home or self-care (01) ==
LOC: RAD 08:40
PROVIDERS: PCP Psychiatry & Neurology Sleep Medicine; Visit Provider Family Medicine
DX: Z87.891 Personal history of nicotine dependence (principal)
CPT/HCPCS: 71271

== ENCOUNTER 2024-11-22 11:58 | Outpatient (CLI) | payer MEDICARE, SELFPAY | END 2024-11-22 23:59 | disposition home or self-care (01) | LOC: RT 11:59 | PROVIDERS: PCP Family Medicine; Visit Provider Family Medicine | DX: I49.1 Atrial premature depolarization (principal); I49.3 Ventricular premature depolarization | CPT/HCPCS: 93225; 93227 ==

== ENCOUNTER 2025-02-07 07:48 | Outpatient (CLI) | payer MEDICARE, SELFPAY ==
--- OUTSIDE RECORDS SUMMARY | 2024-07-19 07:45 | XMS_ITS ---
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 Name Role Phone Jacqueline Sheldon Primary Care Provider Allergies Allergen (clinical drug ingredient) Drug/Non Drug Allergy documented on EMR Reaction Allergy Type Onset Date Status rosuvastatin Crestor rash Drug Allergy Acti ve duloxetine Cymbalta diarrhea Drug Allergy Active isosorbide Isosorbide Mononitrate extreme headaches Drug Allergy Active Substance with sulfonamide structure and antibacterial mechanism of action (substance) Sulfa Antibiotics Unknown Drug Allergy Active Results Component Value Reference Range Notes CBC Venipuncture (in house) Reviewed date:07/21/2024 09:17:00 AM Interpretation: Performing Lab: Notes/Report: wbc 7.0 3.5 - 10 lymph 22.6% 15 - 50 mid 6.2% 2 - 15 gran 71.2% 35 - 80 rbc 4.68 3.5 - 5.5 hgb 14.2 11.5 - 16.5 hct 40.5 35 - 55 mcv 86.6 75 - 100 mch 30.4 25 - 35 mchc 35.1 31 - 38 platlet 277 100 - 400 Glycohemoglobin A1c (in hous e) Reviewed date:07/21/2024 09:17:00 AM Interpretation: Performing Lab: Notes/Report: glycohemoglobin 5.8% 5 - 6.5 % P-Comprehensive Metabolic Pa mary alice (CMP) Reviewed date:07/28/2024 01:15:26 PM Interpretation:Normal Performing Lab: Notes/Report: Test performed by [employer], [employer] [address] [place] [address] , [address], [place] [address] Umair Kraus MD, Radiology Transcriptionist CLIA: [id number] Sodium 141 135-145 mmol/L Potassium 4.6 3.5-5.3 mmol/L Chloride 106 97-108 mmol/L CO2 26 22-32 mmol/L Glucose 95 65-99 mg/dL BUN 12 8-23 mg/dL Creatinine 1.02 0.70-1.30 mg/dL Calcium 10.2 8.6-10.4 mg/dL eGFR by Creatinine 81 >59 mL/min/1.73m2 Protein 6.6 6.0-8.3 g/dL Albumin 4.4 3.5-5.3 g/dL Alkaline Phosphatase 72 40-129 IU/L ALT (SGPT) 14 <5-55 IU/L AST (SGOT) 18 <5-46 IU/L Bilirubin, Total 0.6 <0.2-1.2 mg/dL A/G Ratio 2.0 1.1-2.5 P-Microalbumin/Creatinine, R andom Urine Sample Reviewed date:07/28/2024 01:15:26 PM Interpretation:Normal Performing Lab: Notes/Report: Test performed by [facility], [employer] [address] [place] [address] , [address], [place] [id number] Umair Kraus MD, Radiology Transcriptionist CLIA: [id number] Albumin/Creatinine Ratio, Urine 11 0-30 ug/m g Microalbumin, Urine, Random 0.3 Creatinine, Urine 27.7 REASON FOR VISIT 3 Month Check Up, Needs labs, colon cancer screening, diabetic eye exam, Prevnar, & flu vaccine Medications Medication SIG (Take, Route, Frequency, Duration) Notes Start Date End Date Status Venlafaxine HCl ER 75 MG 1 cap(s) orally Two times a day Active clonazePAM 0.5 MG 1 tab(s) orally Thre e times a day 11/03/2023 Active Gemfibrozil 600 MG 1 tab(s) orally 2 ti mes a day; Duration: 90 days Active Lisinopril 20 MG TAKE 1 TABLET EVERY DAY; Duration: 90 Active Ezetimibe 10 MG Take 1 tablet by trent th once daily; Duration: 90 Active Celecoxib 200 MG 1 capsule with food Orally Once a day; Duration: 30 day(s) 08/11/2023 Active Fluticasone Propionate 50 MCG/ACT 1 spray in each nostril Nasally once a day; Duration: 30 day(s) 07/19/2024 Active QC Diclofenac Sodium 1 % 2 gm Externally Two times a day 03/03/2023 Active QUEtiapine Fumarate 100 MG 1 tablet at b edtime Orally Once a day; Duration: 30 day(s) 11/03/2023 Active Albuterol Sulfate HFA 108 (90 Base) MCG/ACT 1 puff as needed Inhalation every 4 hrs, prn 05/09/2023 Active B-12 1000 MCG 1 tab(s) orally once a day Active Ventolin HFA 108 (90 Base) MCG/ACT 2 puff(s) inhaled qid prn 08/27/2021 Ac tive Plavix 75 MG 1 tab(s) orally once a day; Duration: 30 day(s) Active Vital Signs Weight 185.4 lbs 07/19/2024 Blood pressure systolic 130 mm Hg 07/19/19 25 Blood pressure diastolic 90 mm Hg 025 Heart Rate 96 /min 07/19/2024 Height 70 in 07/19/2024 BMI 26.60 kg/m2 07/19/2024 Encounters Encounter Location Date Provider Diagnosis [facility] [address] [facility] [address] [place], [place] [id number] 07/19/2024 Jacqueline Sheldon Depression with anxi ety F41.8 ; Type 2 diabetes mellitus without complication E11.9 ; Essential hypertension I10 ; History of coronary artery stent placement Z95.5 and Acute rhinitis J00 Assessments Encounter Date Diagnosis (ICD Code) Assessment Notes Treatment Notes Treatment Clinical Notes Section Notes 07/19/2024 Depression with anxiety (ICD-10 - F41.8) 07/19/2024 Type 2 diabetes mellitus without complication (ICD-10 - E11.9) 07/19/2024 Essential hypertension (ICD-10 - I10) 07/19/2024 History of coronary artery stent placement (ICD-10 - Z95.5) 07/19/2024 Acute rhinitis (ICD-10 - J00) Plan Of Treatment Medication Medication Name Sig Start Date Stop Date Notes Fluticasone Propionate 50 MCG/ACT 1 spray in each nostril Nasally once a day; Duration: 30 day(s) 07/19/2024 Next Appt Details Follow Up: 4 Months, Reason: Provider Name:Jacqueline Cohen er, 03/25/2025 10:15:00 AM, [address], [address], [place], [phone], Progress Notes * CINDI RICHARDSON TDOB: [birth year] (64 yo M)Acc No.[id number]:07/19/2024 Progress Notes Patient: CINDI SMITH Provider: Jacqueline Sheldon M.D. :1960 A ge:64 Y S ex:Male Date:07/19/2024 Address:[address] [place], [place] [id number] Subjective: * Chief Complaints: * 1 . 3 Month Check Up. 2. Needs labs, colon cancer screening, diabetic eye exam, Prevnar, & flu vaccine. * HPI: C ardiology: The patient is here for a check up on Hypertension and Diabetes. Pt states he is doing good except for runny nose and sinus drainage. Pt denies any sore throat or fever. Pt is not fasting. Denies : Chest Pain. D enies : Short of Breath. D enies : Dizziness. D enies : Palpitations. * ROS: D ERMATOLOGY: no R waqas. n o H jesu. G ASTROENTEROLOGY: no N ausea. n o V omiting. n o D iarrhea.? U ROLOGY: no D ifficulty urinating. n o B lood in urine. * Medical History: H ypertension, Hypercholestrolemia, Histoplasmosis, Hepatitis (shellfish), Neg Cardiolyte GXT 05/2006, Severe Obstructive Sleep apnea, see 01/27, Negative heart cath 10/08/07, Diverticulosis, Dialated eye exam 2014, 50-69% right carotid stenosis, 20-49% left carotid stenosis 07/07/2020, 01/05/2021 70-99% right carotid stenosis, 20-49% left stenosis. * Surgical History: D eQuervain's release left wrist 1988, hemorrhoid removed 1988, tendinitis surgery left elbow 1990, arch drop 1999, Nasal septoplasty, turbinectomies, Dr. Oliveira Nov,2006, Heart Cath. 09/28, colonoscopy, tubular adenoma 12/17/12, colonoscopy - Dr. Abarca - [facility] 02/13/15, [facility] - Heart Cath, stent to LAD 10/06/18, Echo 10/15/18, Neck Surgery Dr. Salcedo at [facility] 06/2022. * Hospitalization/Major Diagno stic Procedure: H chest pains 09/20-09/22/07, [facility] chest pains 09/27-01/28, [facility] chest pains 10/05/07, [facility] ER - choked on raw carrot and pneumonina 05/31/17, [facility] ER - Shortness of Breath 10/22/18. * Family History: F ather: alive 89 yrs, HTN, CVA 2010, diagnosed with Hypertension. M other: alive 86 yrs, HTN, diagnosed with Hypertension. P aternal Grand Father: [place], diagnosed with Diabetes, Heart Disease, Cancer. P aternal Grand Mother: DM. M aternal Grand Mother: DM, diagnosed with Diabetes. S iblings: alive, diagnosed with Cancer. 1 brother(s) , 2 sister(s) . . sister breast Cancer, Paternal Grandfather- throat cancer. * Social History: C URRENT TOBACCO USE S moking Status: P atient does smoke, p acks per day: . 5, S sean age of: 1 4, S moking preference: c igarettes. C affeine: yes, frequency:daily. Exercise: no. Marital Status: . New since last visit: none. Occupation: retired. Past smoking status: yes, PPD: 1 ppd: started smoking at age 13. Occup. exposure: none. Recreational drug use: no. Alcohol: recovering alcoholic. Travel ouside [place]: no. * Medications: T aking Ventolin HFA 108 (90 Base) MCG/ACT Aerosol Solution 2 puff(s) inhaled qid prn , Taking B-12 1000 MCG Tablet 1 tab(s) orally once a day , Taking Plavix 75 MG Tablet 1 tab(s) orally once a day , Taking QC Diclofenac Sodium 1 % Gel 2 gm Externally Two times a day , Taking Celecoxib 200 MG Capsule 1 capsule with food Orally Once a day , Taking Albuterol Sulfate HFA 108 (90 Base) MCG/ACT Aerosol Solution 1 puff as needed Inhalation every 4 hrs, prn , Taking QUEtiapine Fumarate 100 MG Tablet 1 tablet at bedtime Orally Once a day , Taking clonazePAM 0.5 MG Tablet 1 tab(s) orally Three times a day , Taking Venlafaxine HCl ER 75 MG Capsule Extended Release 24 Hour 1 cap(s) orally Two times a day , Taking Lisinopril 20 MG Tablet TAKE 1 TABLET EVERY DAY , Taking Gemfibrozil 600 MG Tablet 1 tab(s) orally 2 times a day , Taking Ezetimibe 10 MG Tablet Take 1 tablet by mouth once daily , Medication List reviewed and reconciled with the patient * Allergies: S ulfa Antibiotics, Cymbalta: diarrhea, Crestor: rash, Isosorbide Mononitrate: extreme headaches. Objective: * Vitals: W t:185.4, Temp:98.4, BP:130/90, HR:96, Nurse:DAIANA, Ht: 70, BMI:26.60. * Examination: G eneral Examination: General Appearance: N AD. H EENT: unremarkable.?Oral cavity: n o lesions, mucosa moist and WNL, no erythema. N tania: s upple, no lymphadenopathy. C hest: n ormal shape and expansion. H eart: R SR, one ectopic. L ungs: c lear to auscultation. A bdomen: soft and nontender, no organomegaly or masses.?Neurologic Exam: I ntact, gait normal. S kin: n ormal, no rash. P eripheral pulses: n ormal. B ack: t bello with right shoulder pain. E xtremities: n o leg edema. Assessment: * Assessment: 1. D epression with anxiety - F41.8 (Primary) 2 . T ype 2 diabetes mellitus without complication - E11.9 3 . E ssential hypertension - I10 4 . H istory of coronary artery stent placement - Z95.5 5 . A cute rhinitis - J00 Plan: * Treatment: Value Reference Range A lbumin/Creatinine Ratio, Urine 11 0-30 - ug /mg * C reatinine, Urine 27.7 - mg/dL * M icroalbumin, Urine, Random 0.3 - mg/dL * Denise Melendez 07/28/2024 1:15 :08 PM >Patient informed of normal results. ?LAB: Glycohemoglobin A1c (in house) (Collection Date & Time - 07/19/2024)* Value Reference Range g lycohemoglobin 5.8% 5 - 6.5 % * Анна Melendeznie Prashanth 07/19/2024 12: 28:00 PM > , Provider reviewed results while patient in office. 2.?Essential hypertension?LAB: P-Comprehensive Metabolic Panel (CMP) (Collection Date & Time - 07/19/2024 12:41 PM)?Normal* Value Reference Range A /G Ratio 2.0 1.1-2.5 - * A lbumin 4.4 3.5-5.3 - g/dL * A lkaline Phosphatase 72 40-129 - IU/L * A LT (SGPT) 14 <5-55 - IU/L * A ST (SGOT) 18 <5-46 - IU/L * B ilirubin, Total 0.6 <0.2-1.2 - mg/dL * B UN 12 8-23 - mg/dL * C alcium 10.2 8.6-10.4 - mg/dL * C hloride 106 97-108 - mmol/L * C O2 26 22-32 - mmol/L * C reatinine 1.02 0.70-1.30 - mg/dL * G lucose 95 65-99 - mg/dL * P otassium 4.6 3.5-5.3 - mmol/L * S odium 141 135-145 - mmol/L * P rotein 6.6 6.0-8.3 - g/dL * e GFR by Creatinine 81 >59 - mL/min/1.73m2 * Denise Melendez 07/28/2024 1:15 :08 PM >Patient informed of normal results. ?LAB: CBC Venipuncture (in house) (Collection Date & Time - 07/19/2024)* Value Reference Range w bc 7.0 3.5 - 10 * l ymph 22.6% 15 - 50 * m id 6.2% 2 - 15 * g ran 71.2% 35 - 80 * r bc 4.68 3.5 - 5.5 * h gb 14.2 11.5 - 16.5 * h ct 40.5 35 - 55 * m cv 86.6 75 - 100 * m ch 30.4 25 - 35 * m chc 35.1 31 - 38 * p latlet 277 100 - 400 * Denise Melendez 07/19/2024 12: 28:48 PM > , Provider reviewed results while patient in office. 3.?Acute rhinitis? Start Fluticasone Propionate Suspension, 50 MCG/ACT, 1 spray in each nostril, Nasally, once a day, 30 day(s), 1, Refills 2.?? * Procedure Codes: G 2211 Complex e/[place], [address] CBC WITH AUTO DIFF, 45938 GLYCATED HEMOGLOBIN TEST, Modifiers: QW * Follow Up: 4 Months * Images: Billing Information: * Visit Code: 51972 Office Visit, Est Pt., Level 4. * Procedure Codes: G2211 Complex e/[place]. [address] CBC WITH AUTO DIFF. 11707 GLYCATED HEMOGLOBIN TEST. Modifiers: QW * Electronic signature of Jacqueline Sheldon MD on 02/07/2025 at 07:51 AM EDT Sign off status: Pending * Provider: Jacqueline Sheldon M.D. Date: 0 07/19/2024 Generated for Toribio james/Zak/Prashanthitting on: 0 02/07/2025 07:51 AM EDT History and Physical Notes * HPI (History of Present Illness) Category Sub-Category Detail Notes Category Not es Cardiology Short of Breath Chest Pain Palpitations Dizziness Examination Category Sub-Category Detail Notes Category Not es General Examination HEENT: unremarkable Heart: RSR, one ectopic Lungs: clear to auscultatio n Abdomen: soft and nontender, no organomegaly or masses Extremities: no leg edema General Appearance: NAD Skin: normal, no rash Neurologic Exam: Intact, gait normal Neck: supple, no lymphaden opathy Oral cavity: no lesions, mucosa m oist and WNL, no erythema Peripheral pulses: normal Back: today with right dustin ulder pain Chest: normal shape and exp ansion
--- OUTSIDE RECORDS SUMMARY | 2024-09-24 09:30 | XMS_ITS ---
Author Organization [facility] Address [address] [id number] Care Team Providers Care Tubular Splitting Machine Tender Name Role Phone Jacqueline Sheldon Primary Care Provider [phone] Jacy Hernandez Unavailable [phone] Allergies Allergen (clinical drug ingredient) Drug/Non Drug Allergy documented on EMR Reaction Allergy Type Onset Date Status rosuvastatin Crestor rash Drug Allergy Acti ve duloxetine Cymbalta diarrhea Drug Allergy Active isosorbide Isosorbide Mononitrate extreme headaches Drug Allergy Active Substance with sulfonamide structure and antibacterial mechanism of action (substance) Sulfa Antibiotics Unknown Drug Allergy Active REASON FOR VISIT knot on toes Medications Medication SIG (Take, Route, Frequency, Duration) Notes Start Date End Date Status Celecoxib 200 MG TAKE 1 CAPSULE BY MO UTH ONCE DAILY WITH FOOD; Duration: 30 Active Ezetimibe 10 MG Take 1 tablet by trent th once daily; Duration: 90 Active Fluticasone Propionate 50 MCG/ACT 1 spray in each nostril Nasally once a day; Duration: 30 day(s) 07/19/2024 Active Lisinopril 20 MG TAKE 1 TABLET EVERY DAY; Duration: 90 Active Gemfibrozil 600 MG 1 tab(s) orally 2 ti mes a day; Duration: 90 days Active QC Diclofenac Sodium 1 % 2 gm Externally Two times a day 03/03/2023 Active clonazePAM 0.5 MG 1 tab(s) orally Thre e times a day 11/03/2023 Active Venlafaxine HCl ER 75 MG 1 cap(s) orally Two times a day Active Albuterol Sulfate HFA 108 (90 Base) MCG/ACT 1 puff as needed Inhalation every 4 hrs, prn 05/09/2023 Active QUEtiapine Fumarate 100 MG 1 tablet at b edtime Orally Once a day; Duration: 30 day(s) 11/03/2023 Active Plavix 75 MG 1 tab(s) orally once a day; Duration: 30 day(s) Active B-12 1000 MCG 1 tab(s) orally once a day Active Ventolin HFA 108 (90 Base) MCG/ACT 2 puff(s) inhaled qid prn 08/27/2021 Ac tive Vital Signs Weight 174.8 lbs 09/24/2024 Blood pressure systolic 100 mm Hg 09/25/19 25 Blood pressure diastolic 80 mm Hg 025 Heart Rate 82 /min 09/24/2024 Height 70 in 09/24/2024 BMI 25.08 kg/m2 09/24/2024 Encounters Encounter Location Date Provider Diagnosis [facility] [address] [facility] [address] [facility] [address] [place] [id number] 09/24/2024 Jacy Hernandez Callus of toe L8 4 Assessments Encounter Date Diagnosis (ICD Code) Assessment Notes Treatment Notes Treatment Clinical Notes Section Notes 09/24/2024 Callus of toe (ICD-10 - L84) The calluses were pared down with a number 15 blade, pain was much improved. Plan Of Treatment Treatment Notes Assessment Notes Callus of toe The calluses were pa red down with a number 15 blade, pain was much improved. Next Appt Details Follow Up: prn, Reason: Provider Name:Jaqcueline Cohen er, 03/25/2025 10:15:00 AM, [address] [facility] 36 [facility], [address], [place], [id number], Progress Notes * JUVENCIOSIRICINDI TDOB: [birth year] (64 yo M)Acc No.[id number]:09/24/2024 Progress Notes Patient: CINID SMITH Provider: ROBINSON Godinez :1960 A ge:64 Y S ex:Male Date:09/24/2024 Address:[address] [place] [address] [id number] Pcp:Jacqueline Sheldon Subjective: * Chief Complaints: * 1 . Knot on toes. * HPI: D ermatology: 64 year old male presents with c/o knot P t is here today with c/o a knot on his left 4th toe. Pt sts his little toe medeiros like it is on fire and sts both of those toes are numb underneath. Pt sts it has been this way for 3 months, and sts it has now gotten to the point to where if he wears shoes or not it does hurt. * ROS: D ERMATOLOGY: no R waqas. [...] arch drop 1999, Nasal septoplasty, turbinectomies, Dr. Tee Argueta,2006, Heart Cath. 09/28, colonoscopy, tubular adenoma 12/17/12, colonoscopy - Dr. Abarca - [facility] 02/13/15, [facility] - Heart Cath, stent to LAD 10/06/18, Echo 10/15/18, Neck Surgery Dr[facility] Salcedo at [facility] 06/2022. * Hospitalization/Major Diagno stic Procedure: H chest pains 09/20-09/22/07, [facility] chest pains 09/27-01/28, [facility] chest pains 10/05/07, [facility] ER - choked on raw carrot and pneumonina 05/31/17, [facility] ER - Shortness of Breath 10/22/18. * Family History: F ather: alive 89 yrs, HTN, CVA 2010, diagnosed with Hypertension. M other: alive 86 yrs, HTN, diagnosed with Hypertension. P aternal Grand Father: CA, diagnosed with Diabetes, Heart Disease, Cancer. P aternal Grand Mother: DM. M aternal Grand Mother: DM, diagnosed with Diabetes. S ibrudolph: alive, diagnosed with Cancer. 1 brother(s) , [...] Externally Two times a day , Taking Albuterol Sulfate HFA [...] 1 tablet by mouth once daily , Taking Fluticasone Propionate 50 MCG/ACT Suspension 1 spray in each nostril Nasally once a day , Taking Celecoxib 200 MG Capsule TAKE 1 CAPSULE BY MOUTH ONCE DAILY WITH FOOD , Medication List reviewed and reconciled with the patient * Allergies: S ulfa Antibiotics, Cymbalta: diarrhea, Crestor: rash, Isosorbide Mononitrate: extreme headaches. Objective: * Vitals: W t: 174.8, Temp: 98.6, BP: 100/80, HR: 82, Nurse: mmh, Ht: 70, BMI:25.08. * Examination: G eneral Examination: General Appearance: N AD. C hest: n ormal shape and expansion. H eart: R SR. L ungs: c lear to auscultation. S kin: l eft f oot with a callus on the 5th toe and in between the 4th and 5th toes. Assessment: * Assessment: 1. C allus of toe - L84 (Primary) Plan: * Treatment: * Procedure Codes: G 2211 Complex e/m visit add on, G8752 MOST RECENT SYSTOLIC BP < 140MM HG, G8754 MOST RECENT DIASTOLIC BP < 90MM HG * Follow Up: p rn * Images: Billing Information: * Visit Code: 57446 Office Visit, Est Pt., Level 3. * Procedure Codes: G2211 Complex e/m visit add on. G8752 MOST RECENT SYSTOLIC BP < 140MM HG. G8754 MOST RECENT DIASTOLIC BP < 90MM HG. * Electronic signature of ROBINSON Tracey on 02/07/2025 at 07:51 AM EDT Sign off status: Pending * Provider: ROBINSON Godinez Date: 0 09/24/2024 Generated for Toribio james/Zak/Prashanthitting on: 0 02/07/2025 07:51 AM EDT History and Physical Notes * HPI (History of Present Illness) Category Sub-Category Detail Notes Category Not es Dermatology knot Pt is here today with c/o a knot on his left 4th toe. Pt sts his little toe medeiros like it is on fire and sts both of those toes are numb underneath. Pt sts it has been this way for 3 months, and sts it has now gotten to the point to where if he wears shoes or not it does hurt Examination Category Sub-Category Detail Notes Category Not es General Examination Heart: RSR Lungs: clear to auscultatio n General Appearance: NAD Skin: left foot with a luiz fernanda on the 5th toe and in between the 4th and 5th toes Chest: normal shape and exp ansion
--- OUTSIDE RECORDS SUMMARY | 2024-11-22 06:45 | XMS_ITS ---
Author Organization [facility] Address [address] [id number] Care Team Providers Care Stamps Or Coins Salesperson Name Role Phone Jacqueline Sheldon Primary Care Provider [phone] Allergies Allergen (clinical drug ingredient) Drug/Non Drug Allergy documented on EMR Reaction Allergy Type Onset Date Status rosuvastatin Crestor rash Drug Allergy Acti ve duloxetine Cymbalta diarrhea Drug Allergy Active isosorbide Isosorbide Mononitrate extreme headaches Drug Allergy Active Substance with sulfonamide structure and antibacterial mechanism of action (substance) Sulfa Antibiotics Unknown Drug Allergy Active Results Component Value Reference Range Notes Glucose (In-House) Reviewed date:11/30/2024 11:32:22 AM Interpretation: Performing Lab: Notes/Report: blood glucose 126 74 - 106 mg/dL Glycohemoglobin A1c (in hous e) Reviewed date:11/30/2024 11:32:22 AM Interpretation: Performing Lab: Notes/Report: glycohemoglobin 5.9% 5 - 6.5 % P-Comprehensive Metabolic Pa mary alice (CMP) Reviewed date:12/01/2024 12:57:33 PM Interpretation:Normal Performing Lab: Notes/Report: Test performed by [facility], [facility] , [address], [place] [address] Umair Kraus MD, Cloth Bleaching Range Operator Chief CLIA: [id number] Sodium 141 135-145 mmol/L Potassium 5.0 3.5-5.3 mmol/L Chloride 105 97-108 mmol/L CO2 27 22-32 mmol/L Glucose 82 65-99 mg/dL BUN 16 8-23 mg/dL Creatinine 1.01 0.70-1.30 mg/dL Calcium 9.8 8.6-10.4 mg/dL eGFR by Creatinine 82 >59 mL/min/1.73m2 Protein 6.3 6.0-8.3 g/dL Albumin 4.4 3.5-5.3 g/dL Alkaline Phosphatase 80 40-129 IU/L ALT (SGPT) 9 <5-55 IU/L AST (SGOT) 15 <5-46 IU/L Bilirubin, Total 0.4 <0.2-1.2 mg/dL A/G Ratio 2.3 1.1-2.5 Holter Monitor- 48 hour Reviewed date:12/17/2024 12:03:47 PM Interpretation: Performing Lab: Notes/Report: REASON FOR VISIT 4 month ckup Medications Medication SIG (Take, Route, Frequency, Duration) Notes Start Date End Date Status Ezetimibe 10 MG Take 1 tablet by trent th once daily; Duration: 90 Active Gemfibrozil 600 MG 1 tab(s) orally 2 ti mes a day; Duration: 90 days Active Lisinopril 20 MG TAKE 1 TABLET EVERY DAY; Duration: 90 Active Celecoxib 200 MG TAKE 1 CAPSULE BY MO [facility] ONCE DAILY WITH FOOD; Duration: 30 Active Fluticasone Propionate 50 MCG/ACT 1 spray in each nostril Nasally once a day; Duration: 30 day(s) 07/19/2024 Active Venlafaxine HCl ER 75 MG 1 cap(s) orally Two times a day Active QC Diclofenac Sodium 1 % 2 gm Externally Two times a day 03/03/2023 Active clonazePAM 0.5 MG 1 tab(s) orally Thre e times a day 11/22/2024 Active Albuterol Sulfate HFA 108 (90 Base) [...] puff(s) inhaled qid prn 08/27/2021 Ac tive Problems Problem Type SNOMED Code ICD Code Onset Dates Problem Status W/U Status Risk Notes Problem History of endocrine disorder (254442790) History of hyperglycemia (Z86.39) Active confirmed Problem 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 (101417317) Type 2 diabetes mellitus with other circulatory complications (E11.59) Active confirmed Vital Signs Weight 181.0 lbs 11/22/2024 Blood pressure systolic 130 mm Hg 11/23/19 25 Blood pressure diastolic 88 mm Hg 025 Heart Rate 71 /min 11/22/2024 Height 70 in 11/22/2024 BMI 25.97 kg/m2 11/22/2024 Encounters Encounter Location Date Provider Diagnosis [facility] [address] [place], [place] [id number] 11/22/2024 Jacqueline Sheldon Lightheadedness R42 ; Essential hypertension I10 ; History of coronary artery stent placement Z95.5 ; Depression with anxiety F41.8 ; History of hyperglycemia Z86.39 ; Schizoaffective disorder, bipolar type F25.0 ; Chronic obstructive pulmonary disease, unspecified COPD type J44.9 ; Mixed hyperlipidemia E78.2 ; Tobacco use disorder F17.200 ; Type 2 diabetes mellitus with other circulatory complications E11.59 and BMI 25.0-25.9,adult Z68.25 Assessments Encounter Date Diagnosis (ICD Code) Assessment Notes Treatment Notes Treatment Clinical Notes Section Notes 11/22/2024 Lightheadedness (ICD-10 - R42) 11/22/2024 Essential hypertension (ICD-10 - I10) 11/22/2024 History of coronary artery stent placement (ICD-10 - Z95.5) 11/22/2024 Depression with anxiety (ICD-10 - F41.8) 11/22/2024 History of hyperglycemia (ICD-10 - Z86.39) 11/22/2024 Schizoaffective disorder, bipolar type (ICD-10 - F25.0) 11/22/2024 Chronic obstructive pulmonary disease, unspecified COPD type (ICD-10 - J44.9) 11/22/2024 Mixed hyperlipidemia (ICD-10 - E78.2) 11/22/2024 Tobacco use disorder (ICD-10 - F17.200) 11/22/2024 Type 2 diabetes mellitus with other circulatory complications (ICD-10 - E11.59) 11/22/2024 BMI 25.0-25.9,adult (ICD-10 - Z68.25) Plan Of Treatment Medication Medication Name Sig Start Date Stop Date Notes Ezetimibe 10 MG Take 1 tablet by trent once daily; Duration: 90 Gemfibrozil 600 MG 1 tab(s) orally 2 ti mes a day; Duration: 90 days Lisinopril 20 MG TAKE 1 TABLET EVERY DAY; Duration: 90 Venlafaxine HCl ER 75 MG 1 cap(s) orally Two times a day clonazePAM 0.5 MG 1 tab(s) orally Thre e times a day 11/22/2024 QUEtiapine Fumarate 100 MG 1 tablet at b edtime Orally Once a day; Duration: 30 day(s) 11/03/2023 Next Appt Details Follow Up: 4 Months, Reason: Provider Name:Jacqueline Cohen er, 03/25/2025 10:15:00 AM, [address] [facility] [address] [facility], [address] , [place], [place], [id number], Progress Notes * RICHARDSONCINDI TDOB: [birth year] (64 yo M)Acc No.[id number]:11/22/2024 Progress Notes Patient: CINDI SMITH Provider: Jacqueline Sheldon M.D. :1960 A ge:64 Y S ex:Male Date:11/22/2024 Address:[address] [place], [place] [address]JAG Rajput [id number] Subjective: * Chief Complaints: * 1 . 4 month ckup. * HPI: C ardiology: The patient is here for a check-up on Hypertension, Hyperlipidemia and Diabetes. Pt states he is having some episodes of lightheadedness and when he eats some candy it resolves. Pt states he thinks he is having some hypoglycemia. Pt states he is fasting. 64 year old male presents with c/o Dizziness l ightheaded, lightheaded. Denies : Chest Pain. D enies : Short of Breath. D enies : Palpitations. * ROS: D [...] adenoma 12/17/12, colonoscopy - Dr. Abarca - [facility] 02/13/15, [facility] - Heart Cath, stent to LAD 10/06/18, Echo 10/15/18, Neck Surgery Dr. Salcedo at [facility] 06/2022. * Hospitalization/Major Diagno stic Procedure: H chest pains 09/20-09/22/07, [facility] chest pains 09/27-01/28, [facility] chest pains 10/05/07, [facility] ER - choked on raw carrot and pneumonina 05/31/17, [facility] ER - Shortness of Breath 10/22/18. * [...] extreme headaches. Objective: * Vitals: W t: 181.0, Temp: 98.2, BP: 130/88, HR: 71, Nurse: DAIANA, Ht: 70, BMI:25.97. * Examination: G eneral Examination: General Appearance: [...] o leg edema. Assessment: * Assessment: 1. L ightheadedness - R42 (Primary) 2 . E ssential hypertension - I10 ? 3 . H istory of coronary artery stent placement - Z95.5 4 . D epression with anxiety - F41.8 5 . H istory of hyperglycemia - Z86.39 6. S chizoaffective disorder, bipolar type - F25.0 7 . C hronic obstructive pulmonary disease, unspecified COPD type - J44.9 8 . M ixed hyperlipidemia - E78.2 9 . T obacco use disorder - F17.200 1 0. T ype 2 diabetes mellitus with other circulatory complications - E11.59 1 1. B UT 25.0-25.9,adult - Z68.25 Plan: * Treatment: 2.?Essential hypertension? Refill Lisinopril Tablet, 20 MG, TAKE 1 TABLET EVERY DAY, 90, 90 Tablet, Refills 1.?LAB: P-Comprehensive Metabolic Panel (CMP) (Collection Date & Time - 11/22/2024 01:27 PM)?Normal* Value Reference Range A /G Ratio 2.3 1.1-2.5 - * A lbumin 4.4 3.5-5.3 - g/dL * A lkaline Phosphatase 80 40-129 - IU/L * A LT (SGPT) 9 <5-55 - IU/L * A ST (SGOT) 15 <5-46 - IU/L * B ilirubin, Total 0.4 <0.2-1.2 - mg/dL * B UN 16 8-23 - mg/dL * C alcium 9.8 8.6-10.4 - mg/dL * C hloride 105 97-108 - mmol/L * C O2 27 22-32 - mmol/L * C reatinine 1.01 0.70-1.30 - mg/dL * G lucose 82 65-99 - mg/dL * P otassium 5.0 3.5-5.3 - mmol/L * S odium 141 135-145 - mmol/L * P rotein 6.3 6.0-8.3 - g/dL * e GFR by Creatinine 82 >59 - mL/min/1.73m2 * Denise Melendez 12/01/2024 12 :57:25 PM EDT > Left voicemail informing of normal lab results 3.?Depression with anxiety? Refill QUEtiapine Fumarate Tablet, 100 MG, 1 tablet at bedtime, Orally, Once a day, 30 day(s), 30, Refills 2;?Refill clonazePAM Tablet, 0.5 MG, 1 tab(s), orally, Three times a day, 90, Refills 2;?Refill Venlafaxine HCl ER Capsule Extended Release 24 Hour, 75 MG, 1 cap(s), orally, Two times a day, 60, Refills 3.??4.?History of hyperglycemia?LAB: Glucose (In-House) (Collection Date & Time - 11/22/2024)* Value Reference Range b lood glucose 126 74 - 106 mg/dL * Denise Melendez Prashanth 11/22/2024 11: 05:59 AM EDT > Provider reviewed results while patient in office. ?LAB: Glycohemoglobin A1c (in house) (Collection Date & Time - 11/22/2024)* Value Reference Range g lycohemoglobin 5.9% 5 - 6.5 % * Denise Melendez Prashanth 11/22/2024 11: 08:05 AM EDT > Provider reviewed results while patient in office. 5.?Others? Refill Gemfibrozil Tablet, 600 MG, 1 tab(s), orally, 2 times a day, 90 days, 180 Tablet, Refills 1; Refill Ezetimibe Tablet, 10 MG, Take 1 tablet by mouth once daily, 90, 90 Tablet, Refills 1. ? * Procedure Codes: G 2211 Complex e/[place], [address] GLYCATED HEMOGLOBIN TEST, Modifiers: QW , 17528 GLUCOSE TEST, 3044F HG A1C LEVEL LT 7.0%, G8420 BMI<30 AND >=22 CALC & DOCU, G8950 PREHTN/HTN BP DOC INDCD F/U DOC, G8752 MOST RECENT SYSTOLIC BP < 140MM HG, G8754 MOST RECENT DIASTOLIC BP < 90MM HG * Follow Up: 4 Months * Images: Billing Information: * Visit Code: 90741 Office Visit, Est Pt., Level 4. * Procedure Codes: G2211 Complex e/[place]. [address] GLYCATED HEMOGLOBIN TEST. Modifiers: QW 47951 GLUCOSE TEST. 3044F HG A1C LEVEL LT 7.0%. G8420 BMI<30 AND >=22 CALC & DOCU. G8950 PREHTN/HTN BP DOC INDCD F/U DOC. G8752 MOST RECENT SYSTOLIC BP < 140MM HG. G8754 MOST RECENT DIASTOLIC BP < 90MM HG. * Electronic signature of Jacqueline Sheldon MD on 02/07/2025 at 07:50 AM EDT Sign off status: Pending * Provider: Jacqueline Sheldon M.D. Date: 0 11/22/2024 Generated for Toribio james/Zak/eTransmitting on: 0 02/07/2025 07:50 AM EDT History and Physical Notes * HPI (History of Present Illness) Category Sub-Category Detail Notes Category Not es Cardiology Short of Breath Chest Pain Palpitations Dizziness lightheaded, lighthe aded Examination Category Sub-Category Detail Notes Category Not [...]
--- OUTSIDE RECORDS SUMMARY | 2025-02-07 07:50 | XMS_ITS | Patient Health Record ---
[facility] Address [address] [id number] Care Team Providers Care Warehouse Sorter Name Role Phone Jacqueline Sheldon Primary Care Provider Jacy Hernandez Unavailable [phone] Allergies Allergen (clinical drug ingredient) Drug/Non Drug Allergy documented on EMR Reaction Allergy Type Onset Date Status rosuvastatin Crestor rash Drug Allergy Acti ve duloxetine Cymbalta diarrhea Drug Allergy Active isosorbide Isosorbide Mononitrate extreme headaches Drug Allergy Active Substance with sulfonamide structure and antibacterial mechanism of action (substance) Sulfa Antibiotics Unknown Drug Allergy Active Results Component Value Reference Range Notes Glycohemoglobin A1c (in hous e) Reviewed date:04/20/2024 05:06:36 PM Interpretation: Performing Lab: Notes/Report: glycohemoglobin 5.8% 5 - 6.5 % P-Comprehensive Metabolic Pa mary alice (CMP) Reviewed date:04/22/2024 12:48:13 PM Interpretation:K+ 5.5, bun 24 Performing Lab: Notes/Report: Test performed by [facility] , [address], [place] [address] Umair Kraus MD, Proof Machine Operator Supervisor CLIA: [id number] Sodium 136 135-145 mmol/L Potassium 5.5 3.5-5.3 mmol/L Chloride 102 97-108 mmol/L CO2 22 22-32 mmol/L Glucose 84 65-99 mg/dL BUN 24 8-23 mg/dL Creatinine 1.20 0.70-1.30 mg/dL Calcium 10.0 8.6-10.4 mg/dL eGFR by Creatinine 67 >59 mL/min/1.73m2 Protein 6.6 6.0-8.3 g/dL Albumin 4.4 3.5-5.3 g/dL Alkaline Phosphatase 89 40-129 IU/L ALT (SGPT) 8 <5-55 IU/L AST (SGOT) 13 <5-46 IU/L Bilirubin, Total 0.4 <0.2-1.2 mg/dL A/G Ratio 2.0 1.1-2.5 P-PSA Reviewed date:04/22/2024 12:48:13 PM Interpretation:Normal Performing Lab: Notes/Report: Test performed by [facility] [address] [facility] , [address], [place] [address] Umair Kraus MD, Proof Machine Operator Supervisor CLIA: [id number] PSA 0.67 <4.00 ng/mL Please note this is an ultrasensitive PSA assay with a lower limit of detection of 0.014 ng/mL. This test is performed by the Cristian ECLIA methodology. Values obtained with different assay methods or kits cannot be directly compared. CT Scan : Chest, low dose Reviewed date:05/11/2024 04:17:15 PM Interpretation:Annual f/u LDCT, coronary artery calcifications and bronchial thickening Performing Lab: Notes/Report: Annual f/u LDCT, coronary artery calcifications and bronchial thickening CBC Venipuncture (in house) Reviewed date:07/21/2024 09:17:00 [...] Interpretation:Normal Performing Lab: Notes/Report: Test performed by [facility] [address] [place] [address] , [address], [place] [address] Umair Kraus MD, Proof Machine Operator Supervisor CLIA: [id number] Sodium 141 135-145 mmol/L Potassium 4.6 3.5-5.3 [...] Interpretation:Normal Performing Lab: Notes/Report: Test performed by [facility] [address] [place] [address] , [address], [place] [address] Umair Kraus MD, Proof Machine Operator Supervisor CLIA: [id number] Albumin/Creatinine Ratio, Urine 11 0-30 ug/m g Microalbumin, Urine, Random 0.3 Creatinine, Urine 27.7 Holter Monitor- 48 hour Reviewed date:12/17/2024 12:03:47 PM Interpretation: Performing Lab: Notes/Report: P-Comprehensive Metabolic Pa mary alice (CMP) Reviewed date:12/01/2024 12:57:33 PM Interpretation:Normal Performing Lab: Notes/Report: Test performed by [facility] [address] [place] [address] , [address], [place] [address] Umair Kraus MD, Proof Machine Operator Supervisor CLIA: [id number] Sodium 141 135-145 mmol/L Potassium 5.0 3.5-5.3 [...] 0.4 <0.2-1.2 mg/dL A/G Ratio 2.3 1.1-2.5 Glycohemoglobin A1c (in hous e) Reviewed date:11/30/2024 11:32:22 AM Interpretation: Performing Lab: Notes/Report: glycohemoglobin 5.9% 5 - 6.5 % Glucose (In-House) Reviewed date:11/30/2024 11:32:22 AM Interpretation: Performing Lab: Notes/Report: blood glucose 126 74 - 106 mg/dL Medications Medication SIG (Take, Route, Frequency, Duration) Notes Start Date End Date Status Ezetimibe 10 MG Take 1 tablet by trent th once daily; Duration: 90 Active QC Diclofenac Sodium 1 % 2 gm Externally Two times a day 03/03/2023 Active clonazePAM 0.5 MG 1 tab(s) orally Thre e times a day 11/22/2024 Active Plavix 75 MG 1 tab(s) orally once a day; Duration: 30 day(s) Active Gemfibrozil 600 MG 1 tab(s) orally 2 ti mes a day; Duration: 90 days Active Lisinopril 20 MG TAKE 1 TABLET EVERY DAY; Duration: 90 Active Albuterol Sulfate HFA 108 (90 Base) MCG/ACT 1 puff as needed Inhalation every 4 hrs, prn 05/09/2023 Active QUEtiapine Fumarate 100 MG 1 tablet at b edtime Orally Once a day; Duration: 30 day(s) 11/03/2023 Active B-12 1000 MCG 1 tab(s) orally once a day Active Celecoxib 200 MG TAKE 1 CAPSULE BY MO UTH ONCE DAILY WITH FOOD; Duration: 30 Active Ventolin HFA 108 (90 Base) MCG/ACT 2 puff(s) inhaled qid prn 08/27/2021 Ac tive Fluticasone Propionate 50 MCG/ACT 1 spray in each nostril Nasally once a day; Duration: 30 day(s) 07/19/2024 Active Venlafaxine HCl ER 75 MG 1 capsule with food orally Two times a day; Duration: 90 days Active Immunizations Vaccine Route Administration Date Status Comme nts Tetanus Tdap-Adacel (over 7yrs) IM Intramuscular 09/30/2012 Administered PNEUMOVAX 23 VACCINE IM Intramuscular 05/20/2016 Administe red DT, 7 YEARS OR OLDER Unknown 07/21/2001 Administered DT, 7 YEARS OR OLDER Unknown 07/21/2001 Administered Problems Problem Type SNOMED Code ICD Code Onset Dates Problem Status W/U Status Risk Notes Problem 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 (313729468) Type 2 diabetes mellitus with other circulatory complications (E11.59) Active confirmed Problem Pleural effusion (11043023) Pleural effusion (J90) Active confirmed Problem Vitamin D deficiency (28896227) Vitamin D deficiency (E55.9) Active confirmed Problem COPD - Chronic obstructive pulmonary disease (37590373) COPD (chronic obstructive pulmonary disease) (J44.9) Active confirmed Problem Essential hypertension (49893639) Essential hypertension (I10) Active confirmed Problem Sebaceous cyst (623464949) Sebaceous cyst (L72.3) Active confirmed Problem Mixed anxiety and depressive disorder (913186891) Depression with anxiety (F41.8) Active confirmed Problem BMI 30+ - obesity (706454701) BMI 32.0-32.9,adult (Z68.32) Active confirmed Problem Environmental allergy (318149614) Environmental allergies (Z91.09) Active confirmed Problem Alcohol abuse (25249342) Alcohol abuse (F10.10) Active confirmed Problem Mixed hyperlipidemia (082752834) Mixed hyperlipidemia (E78.2) Active confirmed Problem Schizoaffective disorder, bipolar type (42840737) Schizoaffective disorder, bipolar type (F25.0) Active confirmed Problem Chronic rhinitis (21091102) Chronic rhinitis (J31.0) Active confirmed Problem Localized infection of skin AND/OR subcutaneous tissue (493489833) Local infection of the skin and subcutaneous tissue, unspecified (L08.9) Active confirmed Problem Pain of right knee region (finding) (604666772521091) Pain in right knee (M25.561) Active confirmed Problem Male erectile disorder (022584369) Male erectile disorder (N52.9) Active confirmed Problem Degeneration of cervical intervertebral disc (79615582) Degenerative disc disease, cervical (M50.30) Active confirmed Problem Chronic pain (20420163) Other chronic pain (G89.29) Active confirmed Problem Obese class II (680887905392876) BMI 35.0-35.9,adult (Z68.35) Active confirmed Problem Type II diabetes mellitus without complication (759563131) Type 2 diabetes mellitus without complication (E11.9) Active confirmed Problem Gastroesophageal reflux disease without esophagitis (700854644) Gastroesophageal reflux disease without esophagitis (K21.9) Active confirmed Problem Reactive depression (situational) (69513764) Situational depression (F43.21) Active confirmed Problem Neck pain (47710684) Neck pain (M54.2) Active confirmed Problem COPD - Chronic obstructive pulmonary disease (61444713) Chronic obstructive pulmonary disease, unspecified COPD type (J44.9) Active confirmed Problem Neuropathy (389737823) Neuropathy (G62.9) Active confirmed Problem Occlusion and stenosis of multiple and bilateral cerebral arteries (009199154) Carotid stenosis, bilateral (I65.23) Active confirmed Problem Pain of left hand (397716090922519) Left hand pain (M79.642) Active confirmed Problem Acute pain of right knee (M25.561) Active confirmed Problem Abnormal findings diagnostic imaging of liver and biliary tract (217641905) Abnormal gallbladder ultrasound (R93.2) Active confirmed Problem Occlusion and stenosis of multiple and bilateral cerebral arteries (635814440) Bilateral carotid artery stenosis (I65.23) Active confirmed Problem Abrasion of righ t ear canal, initial encounter (S00.411A) Active confirmed Problem Benign prostatic hypertrophy without outflow obstruction (697948297) Benign prostatic hyperplasia without lower urinary tract symptoms (N40.0) Active confirmed Problem History of placement of stent for coronary artery disease (situation) (783636090) History of coronary artery stent placement (Z95.5) Active confirmed Problem Tobacco use (342977606) Tobacco use disorder (F17.200) Active confirmed Problem Benign neoplasm of colon (54585488) Polyp of colon, unspecified part of colon, unspecified type (K63.5) Active confirmed Problem Closed fracture of multiple left ribs (disorder) (56692130592230748) Closed fracture of multiple ribs of left side with routine healing, subsequent encounter (S22.42XD) Active confirmed Problem Anxiety state (575472888) Anxiety state, unspecified (F41.1) Active confirmed Problem Pain due to varicose veins of lower extremity (960204251) Varicose veins of right lower extremity with pain (I83.811) Active confirmed Problem Contusion of chest (76903738) Contusion of left chest wall, initial encounter (S20.212A) Active confirmed Problem Atherosclerotic heart disease of [place] coronary artery without angina pectoris (456082779519435) Coronary artery calcification seen on CT scan (I25.10) Active confirmed Problem MRI Scan Abnormal (921984317) Abnormal MRI (R93.89) Active confirmed Problem Closed boxer's fracture with routine healing, subsequent encounter (S62.339D) Active confirmed Problem History of endocrine disorder (631258429) History of hyperglycemia (Z86.39) Active confirmed Vital Signs Heart Rate 71 /min 11/22/2024 Blood pressure diastolic 88 mm Hg 11/22/2024 Height 70 in 11/22/2024 Blood pressure systolic 130 mm Hg 11/22/2024 Weight 181.0 lbs 11/22/2024 BMI 25.97 kg/m2 11/22/2024 Encounters Encounter Location Date Provider Diagnosis [facility] [address] [place], [place] [id number] 04/19/2024 Jacqueline Sheldon Essential hypertensi on I10 ; Type 2 diabetes mellitus without complication E11.9 ; Depression with anxiety F41.8 ; Schizoaffective disorder, bipolar type F25.0 ; Tobacco use disorder F17.200 ; Myofasciitis M60.9 and Benign prostatic hyperplasia without lower urinary tract symptoms N40.0 [facility] [address] [facility] [address] [place], [place] [id number] 05/12/2024 Jacqueline Sheldon [facility] [address] [facility] [address] [place], [place] [id number] 05/26/2024 Jacqueline Sheldon [facility] [address] [facility] [address] [place], [place] [id number] 07/19/2024 Jacqueline Sheldon Depression with anxi ety F41.8 ; Type 2 diabetes mellitus without complication E11.9 ; Essential hypertension I10 ; History of coronary artery stent placement Z95.5 and Acute rhinitis J00 [facility] [address] [place], [place] [id number] 09/24/2024 Jacy Hernandez Callus of toe L84 [facility] [address] [place] [id number] 11/22/2024 Jacqueline Sheldon Lightheadedness R42 ; Essential [...] circulatory complications E11.59 and BMI 25.0-25.9,adult Z68.25 [facility] [address] [place], [place] [id number] 04/22/2024 [facility] [address] [place], [place] [id number] 05/11/2024 [facility] [address] [place], [place] [id number] 05/12/2024 Jacqueline Sheldon Essential hypertensi on I10 [facility] [address] [place], [place] [id number] 11/23/2024 [facility] [address] [place], [place] [id number] 12/17/2024 Jacqueline Sheldon Assessments Encounter Date Diagnosis (ICD Code) Assessment Notes Treatment Notes Treatment Clinical Notes Section Notes 11/22/2024 Lightheadedness (ICD-10 - R42) 11/22/2024 Essential hypertension (ICD-10 - I10) 04/19/2024 Essential hypertension (ICD-10 - I10) 04/19/2024 Type 2 diabetes mellitus without complication (ICD-10 - E11.9) 05/12/2024 Essential hypertension (ICD-10 - I10) 09/24/2024 Callus of toe (ICD-10 - L84) The calluses were pared down with a number 15 blade, pain was much improved. 07/19/2024 Depression with anxiety (ICD-10 - F41.8) 07/19/2024 Type 2 diabetes mellitus without complication (ICD-10 - E11.9) 07/19/2024 Essential hypertension (ICD-10 - I10) 04/19/2024 Depression with anxiety (ICD-10 - F41.8) 11/22/2024 History of coronary artery stent placement (ICD-10 - Z95.5) 11/22/2024 Depression with anxiety (ICD-10 - F41.8) 04/19/2024 Schizoaffective disorder, bipolar type (ICD-10 - F25.0) 07/19/2024 History of coronary artery stent placement (ICD-10 - Z95.5) 07/19/2024 Acute rhinitis (ICD-10 - J00) 04/19/2024 Tobacco use disorder (ICD-10 - F17.200) 11/22/2024 History of hyperglycemia (ICD-10 - Z86.39) 11/22/2024 Schizoaffective disorder, bipolar type (ICD-10 - F25.0) 04/19/2024 Myofasciitis (ICD-10 - M60.9) 04/19/2024 Benign prostatic hyperplasia without lower urinary tract symptoms (ICD-10 - N40.0) 11/22/2024 Chronic obstructive pulmonary disease, unspecified COPD type (ICD-10 - J44.9) 11/22/2024 Mixed hyperlipidemia (ICD-10 - E78.2) 11/22/2024 Tobacco use disorder (ICD-10 - F17.200) 11/22/2024 Type 2 diabetes mellitus with other circulatory complications (ICD-10 - E11.59) 11/22/2024 BMI 25.0-25.9,adult (ICD-10 - Z68.25) Plan Of Treatment Pending Test Test Name Order Date colonoscopy 11/23/2024 Next Appt Details Provider Name:Jacqueline ibarra, 03/25/2025 10:15:00 AM, [address], [address], [place], [place], [id number], Insurance Providers Payer Name Payer Address Payer Phone Subscriber Number Group Number Insured Name Patient Relationship to Insured Coverage Start Date Coverage End Date [employer] (MEDICAR E) [address] [address] [place] [address] [phone] [id number] CINDI RICHARDSON Self - patient is the insured Medications Administered Medication Instructions Date of Administration Dosage Notes B-12 06/06/2014 1 mL Per Luca brush give him an injection today and then she wants him to get Vitamin B12 otc and continue until he sees Dr. Sheldon B-12 04/18/2016 1 mL Depo- Medrol 40 mg/ml 12/28/2010 1.5 mL Dexamethasone 02/07/2021 1 mL Medical (General) History Medical History History ICD Code Hypertension hypercholestrolemia histoplasmosis hepatitis (shellfish) Neg Cardiolyte GXT 05/2006 Severe Obstructive Sleep apnea, see 01/27 Negative heart cath 10/08/07 diverticulosis dialated eye exam 2014 50-69% right carotid stenosis, 20-49% le ft carotid stenosis 07/07/2020 01/05/2021 70-99% right carotid stenosis, 20-49% left stenosis Surgical History Surgery Date(Month/Year) DeQuervain's release left wrist 1988 hemorrhoid removed 1988 tendinitis surgery left elbow 1990 arch drop 1999 Nasal septoplasty, turbinectomies, Dr. Prashanth arroyo Heart Cath. 09/28 colonoscopy, tubular adenoma 12/17/12 colonoscopy - Dr. Abarca - [facility] 02/13/15 [facility] - Heart Cath, stent to LAD 10/06/18 Echo 10/15/[address] Salcedo at [facility] 06/2022 Hospitalization History Reason Date(Month/Year) [facility] ER - Shortness of Breath 10/22/18 [facility] ER - choked on raw carrot and pneumo [place] 05/31/17 [facility] chest pains 10/05/07 [facility] chest pains 09/27-01/28 [facility] chest pains 09/20-09/22/07
--- OUTSIDE RECORDS SUMMARY | 2025-02-07 07:51 | XMS_ITS | Clinical Summary ---
Author Organization [facility] Address [address] [place] [phone] Care Team Providers Care Sales Clerk Name Role Phone Marcelino Sheldon MD Primary Care Provider [phone] Allergies Active Allergy Reactions Criticality Noted Date Comments Atorvastatin Other (See Comments) Low 01/16/2021 myalgia Ezetimibe Other (See Comments) Low 01/16/2021 myalgia Isosorbide Nitrate Headache Low 01/16/2021 Rosuvastatin Other (See Comments) Low 01/16/2021 myalgia Sulfa Antibiotics Rash Low 01/16/2021 Medications gemfibrozil (LOPID) 600 MG tablet 1 tablet 2 (Two) Times a Day. 2 Active cyanocobalamin (VITAMIN B-12) 1000 MCG tablet Take 1 tablet by mouth Daily. Active Coenzyme Q10 200 MG capsule Take 1 capsule by mouth Daily. Active venlafaxine XR (EFFEXOR-XR) 75 MG 24 hr capsule Take 3 capsules by mouth Daily for 30 days. 90 capsule 3 Active QUEtiapine (SEROquel) 100 MG tablet Take 1 tablet by mouth Every Night for 30 days. 30 tablet 3 Active metoprolol tartrate (LOPRESSOR) 25 MG tablet Take 1 tablet by mouth 2 (Two) Times a Day for 30 days. 60 tablet 3 Active oxyCODONE-aceta minophen (PERCOCET) 7.5-325 MG per tabletIndicatio ns:History of fusion of cervical spine Take 1 tablet by mouth Every 6 (Six) Hours As Needed for Moderate Pain. 60 tablet 3 Active Additional Information Patient not taking.Reported on 09/04/2022 triamcinolone (KENALOG) 0.025 % cream APPLY CREAM TOPICALLY THREE TIMES DAILY FOR 7 DAYS 3 Active benztropine (COGENTIN) 1 MG tablet 3 Active Active Problems Problem Noted Date Diagnosed Date Closed nondisplaced odontoid fracture with type II morphology, initial encounter 07/09/2022 Closed nondisplaced type II dens fracture 2021 Tobacco abuse 05/24/2022 Social History Tobacco Use Types Packs/Day Years Used Date Smoking Tobacco: Every Day Cigarettes Passive Smoke Exposure: Current Smokeless Tobacco: Never Tobacco Cessation:Ready to Q uit: Not Asked; Counseling Given: Not Answered Comments:6-7 CIGS PER DAY - DOWN TO - SMOKED SINCE 14 Alcohol Use Standard Drinks/Week Comments Yes 2 (1 standard drink = 0.6 oz pur e alcohol) AUDIT-C Answer Date Recorded Q1: How often do you have a drink containing alc ohol? 2-4 times a month 07/09/2022 Q2: How many drinks containi ng alcohol do you have on a typical day when you are drinking? 3 or 4 07/09/2022 Q3: How often do you have si x or more drinks on one occasion? Never 07/09/2022 Hunger Vital Sign Answer Date Recorded Within the past 12 months, y ou worried that your food would run out before you got the money to buy more. Never true 07/10/19 23 Within the past 12 months, t he food you bought just didn't last and you didn't have money to get more. Never true 07/10/2022 Abuse Screen Answer Date Recorded Unsafe at Home or Work/School Not on file Feels Threatened by Someone? Not on file 10/2023 Does Anyone Keep You from Co ntacting Others or Doint Things Outside the Home? Not on file 07/28/2023 Physical Sign of Abuse Present Not on file 0 07/28/2023 Housing Stability Answer Date Recorded Current Living Arrangements Not on file 10/2023 Potentially Unsafe Housing Conditions Not on addi e 07/28/2023 Family and Community Support Answer Lul e Recorded Help with Day-to-Day Activities Not on file 04/04/2023 Lonely or Isolated Not on file 04/04/2023 Employment Answer Date Recorded Do you want help finding or keeping work or a angeli b? Not on file 04/04/2023 Disabilities Answer Date Recorded Concentrating, Remembering, or Making Decisions Difficulty Not on file 07/28/2023 Doing Errands Independently Difficulty Not on fi le 07/28/2023 Education Answer Date Recorded Help with school or training? Not on file Preferred Language Not on file 07/28/2023 Sex and Gender Information Value Date Recorded Sex Assigned at Not on file Legal Sex Male 9:08 AM EST Gender Identity Not on file Sexual Orientation Not on file Last Filed Vital Signs Vital Sign Reading Time Taken Comments Blood Pressure 132/88 09/04/2022 1:39 PM EDT Pulse 79 07/11/2022 11:17 AM EST Temperature 36.2 C (97.1 F) 07/24/2022 10:20 AM EST Respiratory Rate 18 07/11/2022 11:17 AM EST Oxygen Saturation 96% 07/11/2022 11:17 AM EST Inhaled Oxygen Concentration - - Weight 90 kg (198 lb 6.4 oz) 09/04/2022 1:39 PM EDT Height 177.8 cm (5' 10 ) 09/04/2022 1:39 PM EDT Body Mass Index 28.47 09/04/2022 1:39 PM EDT Plan of Treatment Health Maintenance Due Date Last Done Comments Pneumococcal Vaccine 50+ (1 of 2 - PCV) 1978 COLOGUARD 2004 COLON CANCER SCREENING 5 YEAR SIGMOIDOSCOPY 2004 COLONOSCOPY [address]CER SCREENING [address] COLONOGRAPHY 2004 FECAL OCCULT BLOOD TEST 2004 FIT Testing (1 year) 2004 ZOSTER VACCINE (1 of 2) 2009 TDAP/TD VACCINES (2 - Tdap) 07/21/2011 07/21/2001 ANNUAL WELLNESS VISIT 05/24/2022 HEPATITIS C SCREENING 05/24/2022 COVID-19 Vaccine ( - season) 2024 AAA SCREEN ONCE 2024 INFLUENZA VACCINE 03/23/2025 HEMOGLOBIN A1C Discontinued 07/05/2022 Medical Devices Implanted Type Area Managing Editor Device Identifier Shelf Expiration Date Model / Serial / Lot Kt Seal Hemos Abs Floseal Matrx Fast/Prep 10ml - [id number] Implanted:Qty : 5 on 07/09/2022 by Harry Salcedo MD at [facility] Implant N/A: Spine Cervical [facility] 04/19/2024 [id number] / / [id number] Hemost Abs Surgifoam Sz100 8x12 10mm - [id number] Implanted:Qty : 1 on 07/09/2022 by Harry Salcedo MD at [facility] Implant N/A: Spine Cervical [employer] 1974 / / NA Matrx Plf [address] 2.5x5cm - [id number] - [id number] Implanted:Qty : 1 on 07/09/2022 by Harry Salcedo MD at [facility] Implant N/A: Spine Cervical [employer] 06/12/2025 [id number] / [id number] / [id number] Scrw St Oct Infinity Thrd - [id number] Implanted:Qty : 4 on 07/09/2022 by Harry Salcedo MD at [facility] Implant N/A: Spine Cervical [employer] [id number] / / NA Scrw Infinity Mas 3.5x24mm - [id number] Implanted:Qty : 2 on 07/09/2022 by Harry Salcedo MD at [facility] Implant N/A: Spine Cervical [employer] [id number] / / NA Scrw Mas Infinity 3.5x26mm - [id number] Implanted:Qty : 2 on 07/09/2022 by Harry Salcedo MD at [facility] Implant N/A: Spine Cervical [employer] [id number] / / NA Lan Infinity P/C 3.5x30mm - [id number] Implanted:Qty : 2 on 07/09/2022 by Harry Salcedo MD at [facility] Implant N/A: Spine Cervical [employer] [id number] / / NA Procedures Procedure Name Priority Date/Time Associated Diagnosis Comments HEMOGLOBIN A1C Routine 07/05/2022 1:15 PM EST Closed nondisplaced odontoid fracture with type II morphology, initial encounter from Last 3 Months or Most Recently Relevant to Health Maintenance Results * (ABNORMAL) Hemoglobin A1c (07/05/2022 1:15 PM EST) Hemoglobin A1C 5.80(H) 4.80 - 5.60 % 07/05/2022 2:04 PM EST [facility] Blood Venipuncture / Unknown 07/05/2022 1:15 PM EST 07/05/2022 1:38 PM EST Narrative [facility] - 07/05/2022 2:04 PM EST Hemoglobin A1C Ranges: Increased Risk for Diabetes 5.7% to 6.4% Diabetes >= 6.5% Diabetic Goal < 7.0% Harry Salcedo MD LAB BLOOD ORDERABLES Final Result [facility]
[address] [phone] from Last 3 Months or Most Recently Relevant to Health Maintenance Insurance MEDICARE ADVANTAGE Advance Directives * CPR (Attempt to Resuscitate) (Latest Code Status on File) Date Activated Date Inactivated Comments 07/09/2022 4:04 PM 07/11/2022 3:06 PM Question Answer Comments Code Status (Patient has no pulse and is not breathing): CPR (Attempt to Resuscitate) Medical Interventions (Patie nt has pulse or is breathing): Full Support Release to patient: Routine Release Care Teams Sales Clerk Relationship Specialty Start Date End Date Marcelino Sheldon MD [address] [place] [facility] [address] [facility] [address] [place] [id number] PCP - General Family Medicine 05/20/22
--- OUTSIDE RECORDS SUMMARY | 2025-02-07 07:51 | XMS_ITS | Clinical Summary ---
Author Organization [facility] Address [address] [place] [address] Care Team Providers Care [employer] Name Role Phone Marcelino Sheldon MD Primary Care Provider [phone] Elilot Wilder MD Unavailable [phone] Allergies Active Allergy Reactions Criticality Noted Date Comments Atorvastatin Other - please docum ent in the comment field Low 01/16/2021 myalgia Isosorbide Nitrate Headache Low 01/16/2021 Rosuvastatin Other - please docum ent in the comment field Low 01/16/2021 myalgia Sulfa Drugs Rash Low 01/16/2021 Ezetimibe Other - please docum ent in the comment field Low 01/16/2021 myalgia Medications albuterol 108 (90 Base) MCG/ACT inhaler 1 puff if needed. 12/18/2020 Active benztropine (Cogentin) 1 MG tablet 1 tablet 1 (one) time each day. 09/17/2020 Active clopidogrel (Plavix) 75 MG tablet 1 tablet 1 (one) time each day. 01/04/2021 Active gemfibrozil (Lopid) 600 MG tablet 1 tablet 2 (two) times a day. 01/12/2021 Active lamoTRIgine (LaMICtal) 200 MG tablet 1 tablet 2 (two) times a day. 11/27/2020 Active lisinopril 20 MG tablet 1 tablet 1 (one) time each day. 01/04/2021 Active metoprolol tartrate (Lopressor) 25 MG tablet Take 25 mg by mouth 2 (two) times a day. 01/04/2021 Active omeprazole (PriLOSEC) [address] capsule 1 capsule 1 (one) time each day. 01/04/2021 Active QUEtiapine (SEROquel) 50 MG tablet 1.5 tablets every night. 12/11/2020 Active venlafaxine XR (Effoxor-XR) 150 MG 24 hr capsule 1 capsule 1 (one) time each day. 09/18/2020 Active aspirin 81 MG chewable tablet Chew 81 mg 1 (one) time each day. Active cyanocobalamin (Vitamin B-12) 1000 MCG tablet Take 1,000 mcg by mouth 1 (one) time each day. Active Coenzyme Q10 (CoQ10) 200 MG capsule Take 1 capsule by mouth 1 (one) time each day. Active cyclobenzaprine (Flexeril) 10 MG tablet Take 10 mg by mouth 2 (two) times a day if needed. 02/07/2021 Active hydrOXYzine pamoate (Vistaril) 50 MG capsule Take 50 mg by mouth 3 (three) times a day if needed for itching. Active clonazePAM (KlonoPIN) 1 MG tablet Take 1 mg by mouth 2 (two) times a day. Active Active Problems Problem Noted Date Diagnosed Date Obesity (BMI 30.0-34.9) 01/18/2021 Carotid artery disease 01/16/2021 Coronary artery disease 01/16/2021 Hypertension 01/16/2021 Hyperlipidemia 01/16/2021 Diabetes 01/16/2021 Diastolic dysfunction 01/16/2021 JERMAINE (obstructive sleep apnea) 01/16/2021 Immunizations Immunization Administration Dates Next Due TD (adult), 2 Lf tetanus tox oid, preservative free, adsorbed 07/21/2001 Family History Medical History Relation Name Comments Coronary artery disease Father Hyperlipidemia Mother Hypertension Mother Relation Name Status Comments Father Mother Social History Tobacco Use Types Packs/Day Years Used Date Smoking Tobacco: Every Day Cigarettes 1 45 Smokeless Tobacco: Never Alcohol Use Standard Drinks/Week Comments Yes 0 (1 standard drink = 0.6 oz pur e alcohol) occasional Sex and Gender Information Value Date Recorded Sex Assigned at Not on file Legal Sex Male 6:20 PM EDT Gender Identity Not on file Sexual Orientation Not on file Occupation Industry Job Start Date Job End Date disabled Not on file Not on file Not on file Last Filed Vital Signs Vital Sign Reading Time Taken Comments Blood Pressure 119/74 10/02/2022 8:30 AM EDT Pulse 90 04/25/2021 9:08 AM EDT Temperature - - Respiratory Rate - - Oxygen Saturation 94% 10/02/2022 8:30 AM EDT Inhaled Oxygen Concentration - - Weight 89 kg (196 lb 3.4 oz) 10/02/2022 8:30 AM EDT Height 177.8 cm (5' 10 ) 10/02/2022 8:30 AM EDT Body Mass Index 28.15 10/02/2022 8:30 AM EDT Plan of Treatment Health Maintenance Due Date Last Done Comments [facility]-Depression Screening 1959 [facility]-Hepatitis C Screening 1959 [facility]-Medicare Annual Wellness (AWV) 1959 [facility]-Infant/Child/Adol SDOH Screenings 1959 [id number] Vaccine (#1) 1964 Diabetes: Dental Exam 1969 [facility]- SDOH Screenings 1977 [facility]-Adult SDOH Screenings 1977 [facility]-Pneumococcal Vaccine: 50 + Years (1 of 2 - PCV) 1978 [facility]-DTaP,Tdap,and Td Vaccine s (1 - Tdap) 07/22/2001 07/21/2001 CT Colonography 2004 Colonoscopy 2004 FIT-DNA 2004 FIT 2004 FOBT 2004 Sigmoidoscopy 2004 [facility]-Colorectal Cancer Screening 2004 [facility]-Zoster Vaccines (1 of 2) 2009 [facility]-RSV Vaccine: 60+ Years o r (1 - Risk 60-74 years 1-dose series) 2019 [facility]-Diabetes: Hemoglobin A1C 01/02/2023 07/05/2022 [facility]-Influenza Vaccine (#1) 2025 [facility]-Obesity Intervention Completed 10/02/2022 HPV Vaccines Aged Out No longer eligi ble based on patient's age to complete this topic [facility]-HIB Vaccines Aged Out No longer e ligible based on patient's age to complete this topic [facility]-Hepatitis A Vaccines Aged Out No longer eligible based on patient's age to complete this topic [facility]-IPV Vaccines Aged Out No longer e ligible based on patient's age to complete this topic [facility]-Rotavirus Vaccines Aged Out No lo nger eligible based on patient's age to complete this topic Insurance [employer] Care Teams [employer] Relationship Specialty Start Date End Date Marcelino Sheldon MD [address] [facility] [address] [address] PCP - General 01/16/21 Elliot Wilder MD [address] [facility] [address] [place] [address] Referring Physician Cardiology 01/16/21
--- NOTE | 2025-02-07 08:00 | CT_ITS ---
FINAL REPORT CLINICAL HISTORY: carotids FINDINGS: CTA NECK Thin section axial CT with contrast with multiplanar reconstruction NASCET criteria and technique was utilized during interpretation. Dense vascular calcification is seen of the carotid bifurcations. Bifurcations are widely patent. Aortic arch: Arch shows no significant narrowing. Great vessel origins are widely patent . Right carotid: 70% stenosis at the apex of the carotid bulb. Otherwise, no significant stenosis is seen of the cervical common or internal carotid artery . Left carotid: No significant stenosis is seen of the cervical common or internal carotid artery . Vertebrals: Left vertebral artery is dominant. No significant stenosis is present . IMPRESSION: 70% stenosis at the apex of the right carotid bulb. Reviewed, Interpreted and Dictated by Karson Montes MD Transcribed by Kamille Smith Authenticated and [facility] [place]
[2025-02-07 08:08] LABS: Blood Urea Nitrogen 21 mg/dl (9-20); Creatinine,Serum 1.10 mg/dl (0.66-1.25); Estimated Glomerular Filt Rate 67 ml/min (>60); GFR (African American) 81 ML/MIN (>60)
[2025-02-07] MEDS: IOPAMIDOL-370 (76%);100ML BOTTLE 80 ML IV (08:23)
[2025-02-07] MEDS: 0.9 % SODIUM CHLORIDE 50 ML VIAL IV (08:23)
[2025-02-07] MEDS: SODIUM CHLORIDE 0.9% 10ML SYR (RAD ONLY) 10 ML IV (08:24)
== END 2025-02-07 23:59 | disposition home or self-care (01) ==
LOC: RAD 07:48
PROVIDERS: PCP Family Medicine; Visit Provider Physician Assistant
DX: I65.21 Occlusion and stenosis of right carotid artery (principal); I25.10 Atherosclerotic heart disease of native coronary artery without angina pectoris; I11.9 Hypertensive heart disease without heart failure; R42 Dizziness and giddiness; R94.30 Abnormal result of cardiovascular function study, unspecified; R94.31 Abnormal electrocardiogram [ECG] [EKG]; Z95.5 Presence of coronary angioplasty implant and graft
CPT/HCPCS: 36415; 70498; 82565; 84520; Q9967

== ENCOUNTER 2025-02-14 11:59 | Day surgery (SDC) | payer MEDICARE, SELFPAY ==
[2025-02-11 11:15] VITALS: BMI 26.5
[2025-02-14 12:32] VITALS: BP 124/81; PULSE 89; RESP 17; TEMP 36.7; O2SAT 96
[2025-02-14] MEDS: LACTATED RINGERS 1000ML 1,000 ML 50 ML IV (12:44)
--- NOTE | 2025-02-14 13:05 | P.PNANES_ITS ---
[facility] Disclaimer: The information contained in this section may have been updated after the patient was seen, as this information can be updated by other users. Medical History Abnormal ankle brachial index (IRIS) Numbness of lower extremity Diastolic dysfunction Tobacco dependence syndrome HTN (hypertension) Claudication Leg pain, bilateral HLD (hyperlipidemia) HHD (hypertensive heart disease) Elevated left ventricular end-diastolic pressure (LVEDP) Chest pain Coronary artery disease Near syncope Surgical History Hx of hemorrhoidectomy Hx of carpal tunnel repair Stented coronary artery Social History Smoking Status: Former smoker tobacco type: cigarettes packs per day: 1 alcohol intake: former substance use type: denies use current occupational status: unemployed Travel in the last 8 weeks?: None household members: spouse housing: house current occupational exposures/hazards: No caffeine: Yes Have you lived/traveled outside US in past 30 days?: No Contact w/someone who lives/traveled outside US past 30 days?: No Exposure to someone with infectious disease in past 14 days?: No Do you have a fever (greater than 100.4 F or 38 C)?: No Have you tested positive for COVID-19?: No Exposed to someone with COVID-19 in past 14 days?: No Do you have a sore throat?: No Do you have a cough?: No Do you have any weakness?: No Do you have any diarrhea?: No Are you experiencing any unusual bleeding?: No Do you have any muscle aches/pain?: No Do you have any abdominal pain?: No Are you experiencing loss of taste or smell?: No [facility] Anesthesia Checklist Patient Identification Patient Identification: Arm Band and Verbal (Name & ) Structural Data Admitted From: Home Planned Operative Procedure/s: colonscopy Consent for Planned Operative Procedure(s) Verified: Yes Verified Documents: Surgical Consent and History and Physical NPO Status Verified Time NPO: 00:00 Additional verifications Anesthesia Reactions: No Previous Colonoscopy: Yes Airway Assessment Dentition: Good Dentition Neurological Assessment Level of Consciousness: Awake, Alert and Appropriate Hx Seizures: No Numbness or tingling in extremities: No Anesthesia Plan Anesthesia Risk discussed: Yes Anesthesia Plan: Verified ASA Class: II Anesthesia Type: MAC
--- NOTE | 2025-02-14 13:25 | EXP.HP ---
History of Present Illness *Admission Date: 02/14/25 *History of present illness: Mr. Richardson is a 64-year-old gentleman who is here for screening/surveillance colonoscopy secondary to a personal history of adenomatous colon polyps. The patient did have a colonoscopy with Leighton Abarca M.D in December 2017 and had 4 polyps (tubular adenomas x 2/hyperplastic polyps x 2) which were removed. He did state that the bowel preparation was fair with fairly significant colonic spasticity. The examination is deemed medically necessary for screening/surveillance colonoscopy. The patient has been seen, interviewed and examined prior to the procedure by both myself and the anesthesia provider. [facility] Disclaimer: The information contained in this section may have been updated after the patient was seen, as this information can be updated by other users. Medical History (Updated 02/14/25 @ 13:26 by Jorge Valentino II, MD) Abnormal ankle brachial index (IRIS) Numbness of lower extremity Diastolic dysfunction Tobacco dependence syndrome HTN (hypertension) Claudication Leg pain, bilateral HLD (hyperlipidemia) HHD (hypertensive heart disease) Elevated left ventricular end-diastolic pressure (LVEDP) Chest pain Coronary artery disease Near syncope Surgical History Hx of hemorrhoidectomy Hx of carpal tunnel repair Stented coronary artery Social History Smoking Status: Former smoker tobacco type: cigarettes packs per day: 1 alcohol intake: former substance use type: denies use current occupational status: unemployed Travel in the last 8 weeks?: None household members: spouse housing: house current occupational exposures/hazards: No caffeine: Yes Have you lived/traveled outside US in past 30 days?: No Contact w/someone who lives/traveled outside US past 30 days?: No Exposure to someone with infectious disease in past 14 days?: No Do you have a fever (greater than 100.4 F or 38 C)?: No Have you tested positive for COVID-19?: No Exposed to someone with COVID-19 in past 14 days?: No Do you have a sore throat?: No Do you have a cough?: No Do you have any weakness?: No Do you have any diarrhea?: No Are you experiencing any unusual bleeding?: No Do you have any muscle aches/pain?: No Do you have any abdominal pain?: No Are you experiencing loss of taste or smell?: No Other Medical History Have you received the Flu Vaccine for this season: No Have you received the Pneumonia Vaccine: No Review of Systems Review of Systems Review of systems (narrative): Negative *Cardiovascular Comments: Negative *Gastrointestinal Comments: Negative *Genitourinary Comments: Negative *Musculoskeletal Comments: Negative *Neurologic Comments: Negative Meds Home Medications and Allergies Home Medications ?Medication ?Instructions ?Recorded ?Confirmed ?Type gemfibrozil 600 mg tablet 600 mg PO BID Cholesterol 01/07/18 02/14/25 History albuterol sulfate 90 mcg/actuation 1 puff inhalation Q6H PRN 10/26/18 02/14/25 History aerosol inhaler (Ventolin HFA) Shortness Of Breath benztropine 1 mg tablet 1 mg PO DAILY Tremors 07/05/20 02/14/25 History lisinopril 20 mg tablet 20 mg PO DAILY blood pressure 04/09/21 02/14/25 History aspirin 81 mg tablet,delayed 81 mg PO DAILY #30 tabs 01/18/25 02/14/25 Rx release (Adult Low Dose Aspirin) celecoxib 200 mg capsule 200 mg PO DAILY 01/18/25 02/14/25 History ezetimibe 10 mg tablet 10 mg PO DAILY 01/18/25 02/14/25 History quetiapine 100 mg tablet 100 mg PO DAILY 01/18/25 02/14/25 History clonazepam 0.5 mg tablet 0.5 mg PO TID PRN Anxiety 02/08/25 02/14/25 History venlafaxine 150 mg 150 mg PO ONCE 02/08/25 02/14/25 History capsule,extended release 24 hr sodium,potassium,mag sulfates 17.5 See Rx Instructions PO .COMPLEX 02/09/25 02/14/25 Rx gram-3.13 gram-1.6 gram oral soln #354 mL (Suprep Bowel Prep Kit) New Prescriptions to Start Prescriptions: Allergies Allergy/AdvReac Type Severity Reaction Status Date / Time Sulfa (Sulfonamide Allergy Intermediate I-RASH Verified 02/14/25 12:29 Antibiotics) rosuvastatin (From Crestor) Allergy Mild Unknown Verified 02/14/25 12:29 allergy reaction tramadol Allergy Insomnia Verified 02/14/25 12:29 atorvastatin AdvReac Intermediate myalgias Verified 02/14/25 12:29 ezetimibe (From Zetia) AdvReac Intermediate myalgia Verified 02/14/25 12:29 isosorbide AdvReac Intermediate headaches Verified 02/14/25 12:29 Exam Data for Last 24 hours Vital signs and Labs for Last 24 Hours: Temp Pulse Resp BP Pulse Ox O2 Del Method 98.1 F 89 17 124/81 96 Room Air 02/14/25 12:32 02/14/25 12:32 02/14/25 12:32 02/14/25 12:32 02/14/25 12:32 02/14/25 12:32 I & O for Last 24 hours: Intake & Output 02/11/25 02/12/25 02/13/25 02/14/25 23:59 23:59 23:59 23:59 Weight 185 lb *Routine HEENT Exam Head: Present normocephalic Eye: Present EOMI and PERRL ENT: Present mucous membranes moist *Routine Neck Exam Neck: Present supple *Routine Respiratory Exam Respiratory: Present CTA bilaterally *Routine Cardiovascular Exam Cardiovascular: Present RRR *Routine Abdominal Exam Abdominal: Present soft and normoactive bowel sounds; Absent tenderness *Routine Rectal Exam Rectal:: deferred *Routine Genitalia Exam Genitalia:: deferred *Routine Extremities Exam Extremities: Absent cyanosis, clubbing or edema *Routine Skin Exam Skin: Present warm; Absent rash *Routine Neurological Exam Neurological: Present alert and oriented X3 Assessment and Plan *Assessment and plan (1) Personal history of adenomatous and serrated colon polyps: Status: Acute Category: Medical Code(s): Z86.0101 - Personal history of adenomatous and serrated colon polyps (2) Screening for colon cancer: Status: Acute Category: Medical Code(s): Z12.11 - Encounter for screening for malignant neoplasm of colon Plan A/P: 1. Personal history of adenomatous colon polyps/screening for colon cancer is the preprocedural diagnosis. The patient will be anesthetized/sedated using MAC sedation. The patient has been seen and examined. Cardiac and lung assessment prior to the examination is stable. Proceed with planned screening colonoscopy.
--- NOTE | 2025-02-14 14:29 | HMH.PROCNOTE ---
[facility] Procedure Note Date: 02/14/25 Time: 14:29 Procedure Note:: Colonoscopy Procedure Report: Colonoscopy Endoscopist: Jorge Valentino II, MD Referring physician: Prem Sheldon MD Date of Procedure: February 14, 2025 Equipment: Olympus [id number] adult colonoscope Sedation: MAC sedation Indication: Mr. Richardson is a 64-year-old gentleman who is here for screening/surveillance colonoscopy secondary to a personal history of adenomatous colon polyps. The patient did have a colonoscopy with Leighton Abarca M.D in December 2017 and had 4 polyps (tubular adenomas x 2/hyperplastic polyps x 2) which were removed. He did state that the bowel preparation was fair with fairly significant colonic spasticity. The patient reports no abdominal pain, weight loss, change in his bowel habits or rectal bleeding. He reports no family history of colon cancer. Procedure: Prior to the procedure, a history and physical exam was performed, and patient's medications and allergies were reviewed. The risks, benefits and alternatives of the sedation and procedure were discussed with the patient. All questions were answered and informed consent was obtained. The patient was brought to the procedure room. Patient identification and proposed procedure were verified by the physician and the nurse. The patient was placed in a left lateral decubitus position and the scope was passed under direct vision. Throughout the procedure, the patient's blood pressure, pulse, and oxygen saturations were monitored continuously. The colonoscopy was accomplished without difficulty. The patient tolerated the procedure well. Findings: On digital rectal examination there was normal rectal tone. There were no external hemorrhoids. The prostate was 2+, smooth, soft, symmetric without nodules. The colonoscope was introduced through the anal canal to the rectum and advanced to the cecum. The ileocecal valve and appendiceal orifice were identified. The scope was advanced a short distance into the ileum which appeared grossly normal. The scope was then withdrawn into the colon. The cecum, ascending and transverse colon and mucosa were grossly normal. There were scattered diverticuli throughout the descending and sigmoid colon (LEFT colon). The rectum itself was normal. Upon retroflexion within the rectum there were grade 1-2 internal hemorrhoids. The preparation was excellent throughout with Spur Preparation Score of 9. The cecal time was 10 minutes. Impression: 1. Mild sigmoid diverticulosis 2. Grade 1-2 internal hemorrhoids Plan: The patient will not require screening/surveillance colonoscopy again for 10 years by ACS guidelines. I would encourage psyllium bulking fiber supplementation on a maintenance basis.
[2025-02-14 14:30] VITALS: BP 87/50; PULSE 85; RESP 17; TEMP 36.2; O2SAT 97
[2025-02-14 14:40] VITALS: BP 85/54; PULSE 75; RESP 18; TEMP 36.2; O2SAT 99
[2025-02-14 14:50] VITALS: BP 91/56; PULSE 68; RESP 18; TEMP 36.2; O2SAT 100
[2025-02-14 15:00] VITALS: BP 124/86; PULSE 84; RESP 18; TEMP 36.2; O2SAT 97
== END 2025-02-14 15:08 | disposition home or self-care (01) ==
PROVIDERS: PCP Family Medicine; Visit Provider Internal Medicine Gastroenterology
PROC: 0DJD8ZZ Inspection of Lower Intestinal Tract, Via Natural or Artificial Opening Endoscopic (ICD-10-PCS; CPT 45378; principal; 2025-02-14 13:30)
DX: Z12.11 Encounter for screening for malignant neoplasm of colon (principal); K57.30 Diverticulosis of large intestine without perforation or abscess without bleeding; K64.0 First degree hemorrhoids; K64.1 Second degree hemorrhoids; Z86.0101 Personal history of adenomatous and serrated colon polyps; I25.10 Atherosclerotic heart disease of native coronary artery without angina pectoris; I11.9 Hypertensive heart disease without heart failure; E78.5 Hyperlipidemia, unspecified; Z87.891 Personal history of nicotine dependence; Z88.2 Allergy status to sulfonamides; Z88.8 Allergy status to other drugs, medicaments and biological substances; Z79.82 Long term (current) use of aspirin; Z79.899 Other long term (current) drug therapy
CPT/HCPCS: 45378; J2003; J2704; J7120